=== PATIENT | female | born 1975 | race Caucasian/White ===

== ENCOUNTER 2016-07-30 02:56 | Emergency (ER) | payer MEDICARE ==
[2015-08-08 03:47] VITALS: BMI 58.3
[~2016-07-30 02:56] MED LIST: AMBIEN10 MG PO; CIPRO500 MG PO; CLEOCIN HCL300 MG PO; CYCLOBENZAPRINE10 MG PO; DAKIN'S 0.125%480 ML TP; DEMEROL50 MG PO; DILAUDID2 MG; DURAGESIC1 PATCH .1 TD; FLEXERIL10 MG PO; KEFLEX500 MG PO; NORCO 10/325 TA1 TA1 PO; NORCO 5/325 TAB1 TA1 PO; PERCOCET 10/3251 TA1 PO; PHENERGAN25 M1 PO; PROVENTIL HFA6.7 GM INH; SINGULAIR10 MG PO; STERAPRED DS 1010 MG PO; TOPAMAX50 MG PO; VIBRAMYCIN 100100 MG PO; WELLBUTRIN SR150 MG PO; ZOFRAN ODT4 MG/UDTAB PO; ZYVOX600 MG PO
[2016-09-15] MEDS ORDERED: AMBIEN CR12.5 MG/BO PO (10:28)
[2016-09-15] MEDS ORDERED: ZOFRAN ODT4 MG/UDTAB PO (10:29)
[2016-09-15] MEDS ORDERED: TRIAMTERENE-HCT1 TA1 PO (10:29)
[2016-09-15] MEDS ORDERED: ACETAMINOPHEN500 M1 PO (10:30)
== END 2016-07-30 05:18 | disposition home or self-care (01) ==
LOC: D.ER 02:56
DX: J20.9 Acute bronchitis, unspecified (principal); R51 Headache; I10 Essential (primary) hypertension; J45.909 Unspecified asthma, uncomplicated

== ENCOUNTER 2016-08-10 21:07 | Emergency (ER) | payer MEDICARE ==
[2015-08-08 03:47] VITALS: BMI 58.3
[2016-08-10 22:40] LABS: BASOPHILS 0.2 % (0.0-2.0); EOSINOPHILS 1.6 % (0-7); HEMATOCRIT 41.4 % (36.0-48.0); HEMOGLOBIN 13.5 g/dL (12-16); IMMATURE GRANULOCYTES 0.4 % (0-5); LYMPHOCYTES 28.2 % (15-50); MCH 27.2 pg (26.0-34.0); MCHC 32.6 g/dL (31.0-37.0); MCV 83.3 fL (80.0-100.0); MEAN PLATELET VOLUME 10.5 fL (7.4-10.4); MONOCYTES 6.4 % (2-11); NEUTROPHILS 63.2 % (40-80); RBC 4.97 10x6/uL (4.00-5.40); RDW 13.5 % (11.5-14.5); WBC 10.5 10x3/uL (4.8-10.8)
[2016-08-10 22:45] LABS: PLATELET COUNT 209 10x3/uL (130-400)
[2016-08-10 23:04] LABS: ALBUMIN 3.7 g/dL (3.4-5.0); ALKALINE PHOSPHATASE 103 U/L (46-116); ALT (SGPT) 29 U/L (10-68); BILIRUBIN - TOTAL 0.21 mg/dL (0.2-1.3); CALC OSMOLALITY 285 mosm/kg (275-300); CALCIUM 9.6 mg/dL (8.5-10.1); CHLORIDE - SERUM 103 mmol/L (98-107); CREATININE - SERUM 0.7 mg/dL (0.6-1.3); GLUCOSE 128 mg/dL (74-106); PROTEIN - SERUM 7.2 g/dL (6.4-8.2); SODIUM 141 mmol/L (136-145); UREA NITROGEN 22 mg/dL (7-18); eGFR NON AFRICAN AMERICAN > 90 mL/min (90-120)
[2016-09-15] MEDS ORDERED: AMBIEN CR12.5 MG/BO PO (10:28)
[2016-09-15] MEDS ORDERED: ZOFRAN ODT4 MG/UDTAB PO (10:29)
[2016-09-15] MEDS ORDERED: TRIAMTERENE-HCT1 TA1 PO (10:29)
[2016-09-15] MEDS ORDERED: ACETAMINOPHEN500 M1 PO (10:30)
== END 2016-08-11 01:42 | disposition home or self-care (01) ==
LOC: D.ER 21:07
PROVIDERS: Family Medicine
DX: L02.216 Cutaneous abscess of umbilicus (principal); I10 Essential (primary) hypertension; J45.909 Unspecified asthma, uncomplicated

== ENCOUNTER 2016-08-25 13:19 | Emergency (ER) | payer MEDICARE ==
[2015-08-08 03:47] VITALS: BMI 58.3
[2016-08-25 14:10] LABS: BASOPHILS 0.1 % (0.0-2.0); EOSINOPHILS 1.5 % (0-7); HEMATOCRIT 41.3 % (36.0-48.0); HEMOGLOBIN 13.7 g/dL (12-16); IMMATURE GRANULOCYTES 0.2 % (0-5); LYMPHOCYTES 16.6 % (15-50); MCH 27.3 pg (26.0-34.0); MCHC 33.2 g/dL (31.0-37.0); MCV 82.4 fL (80.0-100.0); MEAN PLATELET VOLUME 10.6 fL (7.4-10.4); MONOCYTES 6.7 % (2-11); NEUTROPHILS 74.9 % (40-80); PLATELET COUNT 199 10x3/uL (130-400); RBC 5.01 10x6/uL (4.00-5.40); RDW 13.7 % (11.5-14.5); WBC 9.9 10x3/uL (4.8-10.8)
[2016-08-25 14:34] LABS: ALBUMIN 3.9 g/dL (3.4-5.0); ANION GAP 12.3 mmol/L (8-16); BILIRUBIN - TOTAL 0.37 mg/dL (0.2-1.3); CALCIUM 9.6 mg/dL (8.5-10.1); CARBON DIOXIDE 27.8 mmol/L (21.0-32.0); CREATININE - SERUM 0.9 mg/dL (0.6-1.3); POTASSIUM - SERUM 4.1 mmol/L (3.5-5.1); PROTEIN - SERUM 7.3 g/dL (6.4-8.2)
[2016-09-15] MEDS ORDERED: AMBIEN CR12.5 MG/BO PO (10:28)
[2016-09-15] MEDS ORDERED: TRIAMTERENE-HCT1 TA1 PO (10:29)
[2016-09-15] MEDS ORDERED: ZOFRAN ODT4 MG/UDTAB PO (10:29)
[2016-09-15] MEDS ORDERED: ACETAMINOPHEN500 M1 PO (10:30)
== END 2016-08-25 16:15 | disposition home or self-care (01) ==
LOC: D.ER 13:19
PROVIDERS: Emergency Medicine
DX: G89.18 Other acute postprocedural pain (principal)

== ENCOUNTER 2016-08-30 14:20 | Emergency (ER) | payer MEDICARE ==
[2015-08-08 03:47] VITALS: BMI 58.3
[2016-08-30 16:32] LABS: BASOPHILS 0.3 % (0.0-2.0); EOSINOPHILS 2.6 % (0-7); HEMATOCRIT 39.6 % (36.0-48.0); IMMATURE GRANULOCYTES 0.4 % (0-5); LYMPHOCYTES 24.3 % (15-50); MCH 27.1 pg (26.0-34.0); MCHC 32.8 g/dL (31.0-37.0); MCV 82.5 fL (80.0-100.0); MEAN PLATELET VOLUME 11.4 fL (7.4-10.4); MONOCYTES 8.6 % (2-11); NEUTROPHILS 63.8 % (40-80); PLATELET COUNT 133 10x3/uL (130-400); RDW 13.3 % (11.5-14.5); WBC 7.4 10x3/uL (4.8-10.8)
[2016-08-30 16:44] LABS: ALBUMIN 3.5 g/dL (3.4-5.0); ALKALINE PHOSPHATASE 102 U/L (46-116); ALT (SGPT) 27 U/L (10-68); CALC OSMOLALITY 284 mosm/kg (275-300); CALCIUM 9.3 mg/dL (8.5-10.1); CARBON DIOXIDE 30.4 mmol/L (21.0-32.0); CHLORIDE - SERUM 104 mmol/L (98-107); CREATININE - SERUM 0.8 mg/dL (0.6-1.3); GLUCOSE 129 mg/dL (74-106); POTASSIUM - SERUM 4.1 mmol/L (3.5-5.1); PROTEIN - SERUM 6.6 g/dL (6.4-8.2); SODIUM 142 mmol/L (136-145); UREA NITROGEN 13 mg/dL (7-18); eGFR NON AFRICAN AMERICAN 83 mL/min (90-120)
[2016-09-15] MEDS ORDERED: AMBIEN CR12.5 MG/BO PO (10:28)
[2016-09-15] MEDS ORDERED: TRIAMTERENE-HCT1 TA1 PO (10:29)
[2016-09-15] MEDS ORDERED: ZOFRAN ODT4 MG/UDTAB PO (10:29)
[2016-09-15] MEDS ORDERED: ACETAMINOPHEN500 M1 PO (10:30)
[2016-10-22] MEDS ORDERED: MEPERIDINE HCL50 MG PO (15:21)
== END 2016-08-30 19:00 | disposition home or self-care (01) ==
LOC: D.ER 14:20
PROVIDERS: Family Medicine
DX: L03.311 Cellulitis of abdominal wall (principal); I10 Essential (primary) hypertension; J45.909 Unspecified asthma, uncomplicated

== ENCOUNTER 2016-09-09 21:49 | Emergency (ER) | payer MEDICARE ==
[2015-08-08 03:47] VITALS: BMI 58.3
[2016-09-15] MEDS ORDERED: AMBIEN CR12.5 MG/BO PO (10:28)
[2016-09-15] MEDS ORDERED: TRIAMTERENE-HCT1 TA1 PO (10:29)
[2016-09-15] MEDS ORDERED: ZOFRAN ODT4 MG/UDTAB PO (10:29)
[2016-09-15] MEDS ORDERED: ACETAMINOPHEN500 M1 PO (10:30)
[2016-10-22] MEDS ORDERED: MEPERIDINE HCL50 MG PO (15:21)
== END 2016-09-10 00:38 | disposition home or self-care (01) ==
LOC: D.ER 21:49
DX: T81.4XXD Infection following a procedure, subsequent encounter (principal); B99.8 Other infectious disease; I10 Essential (primary) hypertension; J45.909 Unspecified asthma, uncomplicated

== ENCOUNTER 2016-09-16 07:28 | Day surgery (SDC) | payer MEDICARE ==
[~2016-09-16] VITALS: Ht 165.1 cm; Wt 158.8 kg
[~2016-09-16 07:28] MED LIST changes: +ACETAMINOPHEN500 M1 PO; +AMBIEN CR12.5 MG/BO PO; +TRIAMTERENE-HCT1 TA1 PO
--- NOTE | 2016-09-16 09:40 | NUR ---
BP 205/105, PULSE 73, NOTIFIED JYOTI BLACK MANAGER LOAN
[2016-09-16 10:01] VITALS: BP 203/100; Ht 165.1 cm; Wt 158.8 kg
[2016-09-16 10:56] LABS: BASOPHILS 0.2 % (0.0-2.0); EOSINOPHILS 2.6 % (0-7); HEMOGLOBIN 12.5 g/dL (12-16); IMMATURE GRANULOCYTES 0.2 % (0-5); LYMPHOCYTES 25.8 % (15-50); MCH 26.8 pg (26.0-34.0); MCHC 32.1 g/dL (31.0-37.0); MCV 83.5 fL (80.0-100.0); MEAN PLATELET VOLUME 11.2 fL (7.4-10.4); NEUTROPHILS 62.2 % (40-80); PLATELET COUNT 195 10x3/uL (130-400); RBC 4.67 10x6/uL (4.00-5.40); RDW 13.2 % (11.5-14.5); WBC 6.6 10x3/uL (4.8-10.8)
[2016-09-16 11:04] LABS: APTT 28.3 SECONDS (22.8-39.4); PROTIME 13.1 SECONDS (11.6-15.0)
--- NOTE | 2016-09-16 14:53 | NUR ---
1450 PT STATES SHE IS READY TO GO HOME. IV DC'D WITH CATH INTACT.
--- NOTE | 2016-09-19 09:40 | OP ---
PATIENT NAME: AYAKA HEDRICK MEDICAL RECORD: [id number] :73 LOCATION:D.OPS ADMISSION DATE: SURGEON: SADIQ GOODSON MD DATE OF OPERATION: 09/16/2016 PREOPERATIVE DIAGNOSIS: Ulcerated area with drainage, recurrent, in the suprapubic area beneath the patient's panniculus with tracking and tunneling to the right. POSTOPERATIVE DIAGNOSES: Ulcerated area with drainage, recurrent, in the suprapubic area beneath the patient's panniculus with tracking and tunneling to the right, and reducible umbilical hernia. PROCEDURE: Wide excisional debridement of abdominal wall. The dimensions of debridement, including margins, measured 27.5 cm in the medial lateral dimension and 15.5 cm in the cephalad caudad dimension. It included the ulcer. It included the infected tract. It included the surrounding subcutaneous tissue as well as overlying skin. It included the fascia. Also, 4 pieces of monofilament sutures were noted and were removed. The debridement included some of the anterior wall fascia. This was an intermediate closure. Umbilical hernia repair without mesh. SURGEON: Sadiq Goodson MD. SENIOR SUPPORT ENGINEER: None. BLOOD LOSS: 150 cc. ANESTHESIA: General. COMPLICATIONS: None. The risks, possible complications and alternatives to procedure were explained to the patient. She elects to proceed. OPERATIVE COURSE: The patient was conveyed to the operating room electively on 09/16/2016. General anesthesia was induced by the anesthesia staff. The abdomen was sterilely prepped and draped. This was performed in a piecemeal fashion. Through the use of double curvilinear incisions, I began to perform an excision. I ran into additional indurated tissue laterally to the right. I extended my excision to the right. I excised the skin and subcutaneous tissue as well as underlying ulcer in a piecemeal fashion with the scalpel as well as with electrocautery. I encountered an umbilical hernia. It was reducible. As this is technically an infected field, I reduced the incarcerated contents, which appeared to be colon. I then closed the hernia defect with multiple interrupted horizontal mattress #1 Vicryls. Subcutaneous flaps were created sharply. Cultures of the infected ulcer were obtained. I irrigated in the wound with hydrogen peroxide. The subdermis was approximated with interrupted 3-0 Vicryls. The skin was approximated with multiple interrupted vertical mattress and #1 Vicryls. A sterile dressing was applied. The patient was then extubated and conveyed to the post-anesthesia care unit where she was in stable condition. She will be dismissed home on for pain as well as doxycycline. She will be seen in my office on Thursday for dressing OPERATIVE REPORT [id number] AYAKA HEDRICK. TRANSINT:[id number] Voice Confirmation ID: [id number] DOCUMENT ID: [id number] SADIQ GOODSON MD at 0940 CC: FALLON NESBITT MD [id number] DICTATION DATE: 09/16/16 1410 FIELD ASSISTANT: 09/16/168 [facility] 09/16/16 [place] [place] [place] [address]
--- NOTE | 2016-09-19 09:40 | HP ---
PATIENT: AYAKA HEDRICK MEDICAL RECORD: [id number] ACCOUNT: [id number] LOCATION:TRES : 73 ADMISSION DATE: 09/16/16 HISTORY AND PHYSICAL EXAMINATION CHIEF COMPLAINT: Drainage. HISTORY OF PRESENT ILLNESS: The patient has an ulcerated area in the suprapubic area underneath her panniculus and there is some induration and tracking to the right. She has had a history of multiple debridements of the abdominal wall. We have always searched for some underlying foreign body that could be nidus for these infections and I really have never found anything significant to account for these infections. Anyhow, she has had another infection and for that reason she is going to undergo another debridement. It is going to be wide debridement. The risks, possible complications and alternatives to procedure were explained to the patient. She elects to proceed. The discussion specifically included, but was not limited to, bleeding requiring emergency reoperation, infection, possible need for additional debridements, possible need for wound VAC and possible need for revisionary procedure and the possibility of wound dehiscence. SOCIAL HISTORY: Former smoker, quit in 1996. PAST MEDICAL AND SURGICAL HISTORY: Gastroesophageal reflux, which is controlled with opaa-hpy-psdwbpy therapy, hypertension, history of adenocarcinoma of the endometrium, tonsillectomy and adenoidectomy, hysterectomy, , history of colon resection, history of abdominal hernia repair with mesh and morbid obesity. HOME MEDICATIONS: Albuterol, Flexeril, Maxzide, Zofran, and Ambien. ALLERGIES: ARE NUMEROUS AND INCLUDE PENICILLIN, SULFA, NSAIDS, ASPIRIN, CEPHALOSPORINS, ADHESIVES, FOLIC ACID, COMPAZINE WELL VITAMIN E. REVIEW OF SYSTEMS: No nausea. No vomiting. No fever. No chills. Review of systems is negative other than as is described above. PHYSICAL EXAMINATION: GENERAL: The patient does not appear acutely ill. She does appear chronically ill. VITAL SIGNS: Reviewed. HEAD: External ears appear normal. EYES: Extraocular movements are intact. NECK: Trachea is midline. CHEST: No intercostal retractions. PULMONARY: Nonlabored. No stridor. ABDOMEN: Tenderness in the suprapubic area and in the right lower quadrant. IMPRESSION: Ulceration with infection in the suprapubic area tracking on to the right. There is ulceration in the area. PLAN: Wide excisional debridement. TRANSINT:[id number] Voice Confirmation ID: [id number] DOCUMENT ID: [id number] HISTORY AND PHYSICAL [id number] AYAKA HEDRICK ROBERT MD at 0940 CC: DICK HUDDLESTON MD [id number] DICTATION DATE: 09/16/16 1242 FIRE DISPATCHER: 09/16/16 1413 [facility] 09/16/16 [place] [id number]
== END 2016-09-16 15:20 | disposition home or self-care (01) ==
LOC: D.OPS 07:28 → D.PAN 09:30 → D.OPS 09:30
PROVIDERS: Anesthesiology
DX: L98.491 Non-pressure chronic ulcer of skin of other sites limited to breakdown of skin (principal); K42.0 Umbilical hernia with obstruction, without gangrene; M60.28 Foreign body granuloma of soft tissue, not elsewhere classified, other site; Z18.89 Other specified retained foreign body fragments; K21.9 Gastro-esophageal reflux disease without esophagitis; I10 Essential (primary) hypertension; E66.01 Morbid (severe) obesity due to excess calories; Z87.891 Personal history of nicotine dependence; Z79.899 Other long term (current) drug therapy; Z88.0 Allergy status to penicillin; Z88.6 Allergy status to analgesic agent; Z88.2 Allergy status to sulfonamides; Z88.8 Allergy status to other drugs, medicaments and biological substances; Z68.43 Body mass index [BMI] 50.0-59.9, adult

== ENCOUNTER 2016-09-16 18:59 | Inpatient (IN) | payer MEDICARE ==
[~2016-09-16] VITALS: Ht 165.1 cm; Wt 172.4 kg
--- NOTE | ~2016-09-16 | DS ---
PATIENT:AYAKA HEDRICK :73 MEDICAL RECORD: [id number] DISCHARGE SUMMARY ADMISSION DATE: 09/16/16 DISCHARGE DATE: DATE OF SERVICE: 09/19/2016 PRINCIPAL DIAGNOSES: 1. Postoperative subcutaneous hematoma. 2. Acute blood loss anemia requiring transfusion. 3. Urinary tract infection with vancomycin-resistant enterococci. 4. Syncope. HOSPITAL COURSE: The patient was admitted through the Emergency Room with a subcutaneous hematoma, which was a postoperative hematoma. She initially admitted to the intensive care unit. The patient had a syncopal episode without injury. She was taken to the operating room. The hematoma was removed. The subcutaneous tissues were lavaged. I then packed the wound. She was brought back to the operating room. Unpacked lavage and closed. The patient while in the hospital, had a urinary tract infection with VRE, which is sensitive to linezolid, which she will be dismissed home on. She also had wound culture for MRSA. She will be dismissed home on doxycycline. Also, hydrocodone for pain. She will come to the office next for drain removal. TRANSINT:[id number] Voice Confirmation ID: [id number] DOCUMENT ID: [id number] KRIS GOODSON MD CC: [id number] DICTATION DATE: 09/19/16 160 VENEER GLUER: 09/19/162230 ADM IN [place] [id number] [place] [address]
--- NOTE | ~2016-09-16 | OP ---
PATIENT NAME: AYAKA HEDRICK MEDICAL RECORD: [id number] :73 LOCATION:D.MS Agustin2229 ADMISSION DATE:09/16/16 SURGEON: SAIDQ GOODSON MD DATE OF OPERATION: 09/19/2016 PREOPERATIVE DIAGNOSIS: Subcutaneous packing due to postoperative hematoma. POSTOPERATIVE DIAGNOSIS: Subcutaneous packing due to postoperative hematoma with no evidence for recurrent bleeding. PROCEDURES: Packing of the wound. Lavage of the subcutaneous wound. Placement of drain. Closure of the wound. SURGEON: Sadiq Goodson MD. STEVEDORE DOCK: None. BLOOD LOSS: Minimal. ANESTHESIA: General. COMPLICATIONS: None. The risks, possible complications and alternatives to procedure were explained to the patient. She elects to proceed. OPERATIVE COURSE: The patient was conveyed to the operating room electively on 09/19/2016. General anesthesia was induced by anesthesia staff. The abdomen was sterilely prepped and draped. All the laparotomy pads were removed from the subcutaneous tissue. This was a total of 5 packs. I then lavaged the subcutaneous wound with a pulse fermentation scientist or evacuator. I then lavaged with hydrogen peroxide. A 19-Irish Ector drain was placed and brought out laterally. The drain was placed in the subcutaneous tissues. The subdermis was approximated with interrupted 3-0 Vicryls. The open portion of the skin was closed with interrupted horizontal mattress #1 Vicryls. TRANSINT:[id number] Voice Confirmation ID: [id number] DOCUMENT ID: [id number] SADIQ GOODSON MD CC: [id number] DICTATION DATE: 09/19/16 1603 RESTAURANT SERVICE MANAGER: 09/19/16 191 ADM IN [facility] [address] [place] [address]
[2016-09-16 20:51] LABS: INR 1.18 (0.85-1.17); PROTIME 14.9 SECONDS (11.6-15.0)
[2016-09-16 21:01] LABS: APTT 77.1 SECONDS (22.8-39.4)
[2016-09-17] VITALS (20 sets, daily range): BP systolic 101–144; BP diastolic 54–98; Ht 165.1 cm; Wt 172.4 kg
--- NOTE | 2016-09-17 00:30 | NUR ---
PT ADMITTED TO ROOM 2312. RECEIVED FROM ER VIA BED ACCOMPANIED BY STAFF. PT ABLE TO POSITION SELF TO ICU BED. ABD PADS APPLIED TO ARE ON RIGHT LOWER ABD THAT IS BLEEDING. ABD BINDER RESECURED AND AREA MARKED TO MONITOR ANOUNT OF BLEEDING. PT CONNECTED TO STANDARD ICU MONITORS AND ALL ALARMS SET. PT ORIENTATED TO ROOM SECURITY CODE ESTABLISHED. ORDERS REVIEWED. 24G PIV TO LEFT HAND STARTED AFTER 3 ATTEMPT IN ORDER TO ESTABLISH YARN CLEANER FOR PAIN MANAGEMENT. ADMISSION HISTORY AND ASSESSMENT COMPLETED. UNABLE TO ASSESS INCISION SITE DUE TO ABD BINDER AND BLEEDING
[2016-09-17 00:39] LABS: BASOPHILS 0 % (0.0-2.0); EOSINOPHILS 0 % (0-7); HEMATOCRIT 33.2 % (36.0-48.0); HEMOGLOBIN 10.9 g/dL (12-16); IMMATURE GRANULOCYTES 0.3 % (0-5); LYMPHOCYTES 5.6 % (15-50); MCHC 32.8 g/dL (31.0-37.0); MCV 82.4 fL (80.0-100.0); MEAN PLATELET VOLUME 10.7 fL (7.4-10.4); MONOCYTES 3.8 % (2-11); NEUTROPHILS 90.3 % (40-80); RBC 4.03 10x6/uL (4.00-5.40); RDW 13.3 % (11.5-14.5)
[2016-09-17 00:40] LABS: PLATELET COUNT 277 10x3/uL (130-400); WBC 15.6 10x3/uL (4.8-10.8)
[2016-09-17 00:46] LABS: ALBUMIN 3.2 g/dL (3.4-5.0); ANION GAP 11.5 mmol/L (8-16); BILIRUBIN - TOTAL 0.6 mg/dL (0.2-1.3); CALCIUM 8.7 mg/dL (8.5-10.1); CARBON DIOXIDE 28.7 mmol/L (21.0-32.0); POTASSIUM - SERUM 4.2 mmol/L (3.5-5.1); PROTEIN - SERUM 6.5 g/dL (6.4-8.2)
--- NOTE | 2016-09-17 03:00 | NUR ---
SHIFT REASSESSMENT COMPLETED NO SIGNIFICANT CHANGE. LAB VALUES DO NOT INDICATE NEED FOR TRANSFUSION. VSS. PT REMAINS AAOX4 PLAYING GAMES ON HER PHONE. ENCOURAGED TO REST. HAS BEEN HELD NPO FOR POTENTIAL PROCEDURE.
--- NOTE | 2016-09-17 05:00 | NUR ---
I&O COMPLETED. PT REMAINS AWAKE. NO SIGNIFICANT BLEEDING BEYOND THE EMERY MADE AT 0100.
--- NOTE | 2016-09-17 07:00 | NUR ---
REPORT RECEIVED. ASSESSMENT COMPLETED. LILIANA LEFT PLAYING ON HER CELL PHONE. NO NEEDS VOICED AT THIS TIME.
[2016-09-17 08:06] LABS: BASOPHILS 0.1 % (0.0-2.0); EOSINOPHILS 0 % (0-7); HEMATOCRIT 29.9 % (36.0-48.0); HEMOGLOBIN 9.5 g/dL (12-16); IMMATURE GRANULOCYTES 0.3 % (0-5); LYMPHOCYTES 9.3 % (15-50); MCH 26.5 pg (26.0-34.0); MCHC 31.8 g/dL (31.0-37.0); MCV 83.5 fL (80.0-100.0); MEAN PLATELET VOLUME 10.1 fL (7.4-10.4); MONOCYTES 7.1 % (2-11); NEUTROPHILS 83.2 % (40-80); PLATELET COUNT 259 10x3/uL (130-400); RBC 3.58 10x6/uL (4.00-5.40); RDW 13.5 % (11.5-14.5); WBC 15.6 10x3/uL (4.8-10.8)
[2016-09-17 08:27] LABS: ANION GAP 10.9 mmol/L (8-16); CALCIUM 8.9 mg/dL (8.5-10.1); CARBON DIOXIDE 28.6 mmol/L (21.0-32.0); POTASSIUM - SERUM 4.5 mmol/L (3.5-5.1)
--- NOTE | 2016-09-17 08:44 | NUR ---
DR GOODSON PAGED SECONDARY TO PATIENT C/O DILAUDID MAKING HER ITCH AND SHE IS REQUESTING DEMEROL. SPOKE WITH HIM AND NEW ORDERS RECEIVED.
--- NOTE | 2016-09-17 09:41 | NUR ---
16 FR DICK WITH 10 CC BULB PLACED USING SERILE TECHNIQUE. RECEIVED 700 ML OF DARK YELLOW URINE. PATIENT TOLERATED WELL. CHLORAHEXADINE BATH GIVEN AND LINENS CHANGED.
--- NOTE | 2016-09-17 12:58 | NUR ---
PATIENT GOING TO SURGERY.
--- NOTE | 2016-09-17 13:41 | NUR ---
ALL COUNTS CORRECT. 5 LAPS LEFT IN ABDOMEN FOR PACKING PER DR. GOODSON.
--- NOTE | 2016-09-17 14:56 | NUR ---
REPORT RECEIVED FROM SAMMY DEAL IN RECOVERY. PATIENT WILL BE BACK SHORTLY.
--- NOTE | 2016-09-17 15:08 | NUR ---
PATIENT WAS SETTLED INTO HER ROOM. SHE DID NOT GET HOOKED BACK UP TO HER MEDICAL OR SURGICAL INSTRUMENT MAKER AT THIS TIME BECAUSE IT WAS MORE IMPORTANT FOR HER TO HAVE HER FAMILY IN THE ROOM THAN IT WAS FOR THE NURSE TO TAKE CARE OF HER. THIS NURSE WAS NOT GOING TO ARGUE WITH THE PATIENT.
--- NOTE | 2016-09-17 15:56 | NUR ---
PATIENT WAS IN THE OR TODAY AND I WAS NOT ABLE TO INTERVIEW HER FOR DISCHARGE PLANNING. I HAVE NOT SEEN ANY FAMILY AT THIS TIME. CM TO FOLLOW.
--- NOTE | 2016-09-17 16:38 | NUR ---
REPORT CALLED TO SAMMY GREY ON MED/SURG. PATIENT WILL TRANSFER TO ROOM 2229. WILL TAKE HER VIA BED.
--- NOTE | 2016-09-17 18:21 | NUR ---
PT ARRIVED VIA BED FROM ICU, PT AOX4 RESP EVEN AND NONLABORED IV TO RIGHT EJ PATENT AND INTACT. BED AT LOWEST SETTING CALL LIGHT WITHIN REACH WILL CONTINUE TO MONITOR
--- NOTE | 2016-09-17 19:00 | NUR ---
PATIENT IN BED WATCHING TV. AAOX4. RR EVEN AND UNLABORED. 0 S/S OF DISTRESS. STATES PAIN IS A 9/10. RIGHT IJ PATENT WITH NO REDNESS OR SWELLING. INCISION TO ABDOMEN CLOSED WITH SUTURES AND WELL APPROXIMATED. DICK SECURED WITH STATLOCK AND DRAINING TO GRAVITY. SRX2. BED LOW. CALL LIGHT WITHIN REACH.
--- NOTE | 2016-09-17 22:00 | NUR ---
ASSESSMENT COMPLETE. NIGHTTIME MEDS GIVEN. AMBIEN AND FLEXERIL GIVEN PER TELEPHONE ORDER BY DR. GOODSON. BOLUS VETERINARY TECHNOLOGIST DOSE GIVEN PER ORDER. PUT ABD BINDER ON PATIENT. PATIENT AMBULATED TO BATHROOM AND BACK TO BED WITHOUT ISSUE. REMOVED IV TO LEFT HAND WITH CATHETER TIP INTACT. NO OTHER NEEDS AT THIS TIME.
[2016-09-18] VITALS (21 sets, daily range): BP systolic 105–152; BP diastolic 47–85
--- NOTE | 2016-09-18 03:58 | NUR ---
PATIENT SLEEPING WITH NO DISTRESS NOTED. CALL LIGHT WITHIN REACH.
[2016-09-18 06:36] LABS: ALBUMIN 2.9 g/dL (3.4-5.0); ALKALINE PHOSPHATASE 62 U/L (46-116); BILIRUBIN - TOTAL 0.37 mg/dL (0.2-1.3); CALCIUM 8.2 mg/dL (8.5-10.1); CARBON DIOXIDE 28.1 mmol/L (21.0-32.0); CHLORIDE - SERUM 105 mmol/L (98-107); MAGNESIUM - SERUM 1.9 mg/dL (1.8-2.4); PHOSPHOROUS 2.5 mg/dL (2.5-4.9); POTASSIUM - SERUM 3.9 mmol/L (3.5-5.1); PROTEIN - SERUM 5.5 g/dL (6.4-8.2); SODIUM 140 mmol/L (136-145); UREA NITROGEN 17 mg/dL (7-18)
[2016-09-18 06:37] LABS: ALT (SGPT) 14 U/L (10-68); CALC OSMOLALITY 281 mosm/kg (275-300); CREATININE - SERUM 0.7 mg/dL (0.6-1.3); GLUCOSE 116 mg/dL (74-106); eGFR NON AFRICAN AMERICAN > 90 mL/min (90-120)
[2016-09-18 07:21] LABS: BASOPHILS 0.1 % (0.0-2.0); EOSINOPHILS 0.2 % (0-7); HEMOGLOBIN 7.6 g/dL (12-16); IMMATURE GRANULOCYTES 0.4 % (0-5); LYMPHOCYTES 18.6 % (15-50); MCH 27.3 pg (26.0-34.0); MCHC 32.1 g/dL (31.0-37.0); MCV 85.3 fL (80.0-100.0); MEAN PLATELET VOLUME 10.6 fL (7.4-10.4); MONOCYTES 11.1 % (2-11); NEUTROPHILS 69.6 % (40-80); RDW 14.1 % (11.5-14.5)
[2016-09-18 07:24] LABS: HEMATOCRIT 23.7 % (36.0-48.0); PLATELET COUNT 167 10x3/uL (130-400); RBC 2.78 10x6/uL (4.00-5.40); WBC 11.3 10x3/uL (4.8-10.8)
--- NOTE | 2016-09-18 09:10 | NUR ---
Patient Name: AYAKA HEDRICK Admission Status: ER Accout number: [id number] Admission Date: 09-16-2016 : 1975 Admission Diagnosis: Attending: OSCAR Current LOS: 2 Anticipated DC Date: 09-22-2016 Planned Disposition: Home with Home Health Primary Insurance: [employer] [facility] Discharge Planning Comments: CM MET WITH PATIENT REGARDING D/C NEEDS AND PLANS. PATIENT STATED SHE LIVES WITH HER MOTHER, DAUGHTER, AND AN EXCHANGE STUDENT. PATIENTS FRIEND (RADAMES POZO) WILL DRIVE HER HOME WHEN DISCHARGED. PATIENT STATED SHE IS INDEPENDENT WITH HER CARE AND HAS A WALKER AT HOME IF NEEDED. PAIENTS PCP IS DR. NESBITT AND PHARMACY IS [facility]. PATIENT HAS NEVER HAD HOME HEALTH BUT HAS SIGNED THE MARGOT FORM WITH [facility]. CM WILL CONTINUE TO FOLLOW PATIENT WITH D/C NEEDS AND PLANS. PCP DR. DELICIA HADLEY ON [address] [facility]- [phone] RADAMES POZO (FRIEND) [phone] Manager Utilization Management: Rachael York Is the patient Alert and Oriented? Yes 0 * How many steps to enter\exit or inside your home? 2 W/O RAIL 0 * PCP DR. NESBITT 0 * Pharmacy [facility] [address] [facility] 0 * Preadmission Environment Home with Family 0 * ADLs Independent 0 * Equipment Walker 0 * List name and contact numbers for known caregivers / representatives who currently or will assist patient after discharge: RADAMES POZO (FRIEND) [phone] 0 * Community resources currently utilized None 0 * Additional services required to return to the preadmission environment? Yes 0 * Can the patient safely return to the preadmission environment? Yes 0 * Has this patient been hospitalized within the prior 30 days at any hospital? No 0 Grand Total: 0
--- NOTE | 2016-09-18 11:43 | NUR ---
PATIENT IS RECIEVING FIRST UNIT OF PRBC STAYING WITH PATIENT FOR THE FIRST 15 MINS OF TRANSFUSION. PATIENT IS TOLERATING AT THIS TIME. NO SIGNS OF DISTRESS NOTED. EXPLAINED TO PATIENT THE RISK FOR REACTION TO BLOOD AND POSSIBLE SYMPTOMS TO REPORT IMMEDIATELY. PATIENT VERBALIZED UNDERSTANDING.
--- NOTE | 2016-09-18 13:36 | NUR ---
CM REASSESSMENT NOTE: PATIENT CHOSE [facility] AND SIGNED THE MARGOT FORM AND REFERRAL HAS BEEN SENT. ON D/C SEND ORDER AND D/C INFORMATION
--- NOTE | 2016-09-18 19:00 | NUR ---
PATIENT IN BED WATCHING TV. HOB 30 DEGREES. AAOX4. RR EVEN AND UNLABORED. 0 S/S OF DISTRESS. STATES PAIN IS A 7/10. RIGHT IJ PATENT WITH NO REDNESS OR SWELLING. ABD BINDER TO ABD. PRBC COMPLETE. VITALS WNL.
--- NOTE | 2016-09-18 21:30 | NUR ---
ASSESSMENT COMPLETE. NIGHTTIME MEDS GIVEN. AMBIEN GIVEN FOR SLEEP. DEMEROL BOLUS GIVEN. REINFORCED DRESSING TO ABD.
[2016-09-19] VITALS (10 sets, daily range): BP systolic 124–183; BP diastolic 62–89
--- NOTE | 2016-09-19 00:40 | NUR ---
DEMEROL BOLUS GIVEN. PATIENT RESTING WITH NO DISTRESS NOTED.
[2016-09-19 01:00] LABS: BASOPHILS 0.1 % (0.0-2.0); EOSINOPHILS 0.9 % (0-7); HEMATOCRIT 27.4 % (36.0-48.0); HEMOGLOBIN 8.6 g/dL (12-16); IMMATURE GRANULOCYTES 0.4 % (0-5); LYMPHOCYTES 20.8 % (15-50); MCHC 31.4 g/dL (31.0-37.0); MCV 85.9 fL (80.0-100.0); MEAN PLATELET VOLUME 10.4 fL (7.4-10.4); MONOCYTES 12.1 % (2-11); NEUTROPHILS 65.7 % (40-80); PLATELET COUNT 151 10x3/uL (130-400); RBC 3.19 10x6/uL (4.00-5.40); RDW 13.9 % (11.5-14.5)
--- NOTE | 2016-09-19 06:45 | NUR ---
DEMEROL BOLUS GIVEN. HIBICLENS GIVEN. DRESSING TO ABD REINFORCED AGAIN.
[2016-09-19 09:10] LABS: BASOPHILS 0.1 % (0.0-2.0); EOSINOPHILS 1.5 % (0-7); HEMOGLOBIN 8.5 g/dL (12-16); IMMATURE GRANULOCYTES 0.3 % (0-5); LYMPHOCYTES 20.6 % (15-50); MCH 27.2 pg (26.0-34.0); MCHC 31.5 g/dL (31.0-37.0); MCV 86.5 fL (80.0-100.0); MEAN PLATELET VOLUME 10.7 fL (7.4-10.4); MONOCYTES 13.1 % (2-11); NEUTROPHILS 64.4 % (40-80); PLATELET COUNT 149 10x3/uL (130-400); RBC 3.12 10x6/uL (4.00-5.40); WBC 10.8 10x3/uL (4.8-10.8)
--- NOTE | 2016-09-19 09:40 | HP ---
PATIENT: AYAKA HEDRICK MEDICAL RECORD: [id number] ACCOUNT: [id number] LOCATION:D.MS Agustin2229 : 73 ADMISSION DATE: 09/16/16 HISTORY AND PHYSICAL EXAMINATION CHIEF COMPLAINT: Bleeding. HISTORY OF PRESENT ILLNESS: The patient underwent a wide excision of an abdominal wall ulcerated wound with tracking yesterday. She developed a subcutaneous postoperative hematoma last night. She contacted me by phone. We tried to treat this conservatively at home, but she continued to have some oozing, presented to the Emergency Room and was admitted. Out on the floor, an abdominal binder was being applied. She was standing at that time. She had a syncopal episode without injury. Today, I am going to plan to take her to the operating room and evacuate the hematoma and pack the wound. I will leave packing in for a day or 2 and then bring her back. I will wash her out again and then close the wound. I have personally reviewed the CT images. I personally reviewed the CT report. She has a hematoma that is 28.2 x 10 x 13 cm. It is consistent with a hematoma. I spoke to the nurses last night regarding her condition. She has had some itching with Dilaudid this morning. We are going to switch her over to Demerol HUB BORER. The bleeding started several hours prior to presentation to the Emergency Room. Symptoms were of moderate intensity. She describes the symptoms as cutting and tearing and a burning. Palpation aggravates. Nothing alleviates. Change of position also aggravates. REVIEW OF SYSTEMS: No fever. Positive for generalized weakness. No weight loss. No nasal congestion. No blurry vision. No congestion. Some nausea and some abdominal pain. No vomiting. No diarrhea. Positive for back pain. Positive for anxiety. PAST MEDICAL AND SURGICAL HISTORY: Ventral hernia repair with mesh, multiple excisional abdominal debridements and with placement of a wound VAC. We have never really been able to identify a nidus of these ongoing infections, history of bronchitis, history of hypertension, cellulitis, headaches, left ureterolithiasis, urinary tract infections, poor wound healing, MRSA, history of hysterectomy, history of bilateral salpingo-oophorectomies. SOCIAL HISTORY: Does not drink, does not smoke. HOME MEDICINES: Ambien, cyclobenzaprine, Maxzide, Tylenol, Zofran, Dilaudid and doxycycline. ALLERGIES: SULFA, COMPAZINE, PENICILLIN AND NSAIDs WELL RU-TUSS. PHYSICAL EXAMINATION: GENERAL: The patient does not appear acutely ill. She does appear chronically ill. VITAL SIGNS: Reviewed. The entire physical examination was performed with the presence of a female nurse. HEAD: External ears appear normal. EYES: Extraocular movements are intact. HISTORY AND PHYSICAL [id number] AYAKA HEDRICK NECK: Trachea is midline. CHEST: No intercostal retractions. PULMONARY: Nonlabored, no stridor. ABDOMEN: Tenderness in the lower abdomen with bleeding from the transverse incision, which is quite lengthy. EXTREMITIES: No peripheral cyanosis. INTEGUMENT: There is an intertriginous rash. PSYCHIATRIC: Anxious affect. NEUROLOGIC: Nonfocal, no lethargy. The patient answers questions appropriately, moves all extremities well. BACK: No thoracic kyphosis. LYMPHATICS: No lymphangitic streaking of the exposed extremities. IMPRESSION: 1. Acute blood loss anemia, symptomatic. 2. Syncope. 3. Postoperative subcutaneous hematoma. PLAN: Irrigation and evacuation of hematoma with packing of the wound. I will leave packing in for a couple of days, I will remove it and then perform a definitive closure of the wound. TRANSINT:[id number] Voice Confirmation ID: [id number] DOCUMENT ID: [id number] KRIS GOODSON MD at 0940 CC: [id number] DICTATION DATE: 09/17/16921 HAT MAKER: 09/17/16 1124 ADM IN [facility] [address] [place] [address]
--- NOTE | 2016-09-19 09:40 | OP ---
PATIENT NAME: AYAKA HEDRICK MEDICAL RECORD: [id number] :73 LOCATION:D.MS Agustin2229 ADMISSION DATE:09/16/16 SURGEON: KRIS GOODSON MD DATE OF OPERATION: 09/17/2016 PREOPERATIVE DIAGNOSES: 1. Postoperative subcutaneous hematoma. 2. Acute blood loss anemia. 3. Syncope. POSTOPERATIVE DIAGNOSES: 1. Postoperative subcutaneous hematoma. 2. Acute blood loss anemia. 3. Syncope. PROCEDURE: Exploration of subcutaneous wound, evacuation of hematoma, lavage and packing with 5 laparotomy pads. OPERATIVE COURSE: The patient was conveyed to the operating room. Several sutures around the abdomen was sterilely prepped and draped. Several sutures were cut. The hematoma was evacuated in its entirety. I irrigated with the pulse suction thread puller. I then irrigated with hydrogen peroxide. I then packed with 5 lapar[address] pads and then place Ioban over the abdomen. The patient was then extubated and conveyed to post-anesthesia care unit where she was going to have a central venous line placed. TRANSINT:[id number] Voice Confirmation ID: [id number] DOCUMENT ID: [id number] KRIS GOODSON MD at 0940 CC: [id number] DICTATION DATE: 09/17/16 1353 AUTOMATIC SPLICING MACHINE OPERATOR: 09/17/162058 ADM IN [place] [id number]
[2016-09-19 09:50] LABS: CALC OSMOLALITY 277 mosm/kg (275-300); CALCIUM 8.1 mg/dL (8.5-10.1); CARBON DIOXIDE 28.6 mmol/L (21.0-32.0); CHLORIDE - SERUM 104 mmol/L (98-107); CREATININE - SERUM 0.7 mg/dL (0.6-1.3); GLUCOSE 112 mg/dL (74-106); POTASSIUM - SERUM 3.5 mmol/L (3.5-5.1); SODIUM 139 mmol/L (136-145); eGFR NON AFRICAN AMERICAN > 90 mL/min (90-120)
[2016-09-19 09:52] LABS: UREA NITROGEN 11 mg/dL (7-18)
--- NOTE | 2016-09-19 13:28 | NUR ---
CALLED SURGERY SPOKE WITH REYNOLD. ASKED HER IF SHE COULD NOTIFY ANESTHESIA AND TELL THEM THERE ARE NOT ANY PRE-OP ORDERS. SHE STATED "YES I WILL."
--- NOTE | 2016-09-19 13:59 | NUR ---
PATIENT LEFT VIA BED TO THE O.R.
--- NOTE | 2016-09-19 14:00 | NUR ---
DID NOT GIVE PEPCID A PRE-OP MED BECAUSE PATIENT IS ON PEPCID 40MG IV Q12H
--- NOTE | 2016-09-19 16:27 | NUR ---
50ML EMPTIED FROM ERIKA DRAIN
--- NOTE | 2016-09-19 19:50 | NUR ---
ASSESSMENT COMPLETED, NO ACUTE DISTRESS NOTED, DENIES NEEDS AT THIS TIME, FALL AND ISOLATION PRECAUTIONS IN PLACE, CL IN REACH, WILL MONITOR
--- NOTE | 2016-09-19 21:12 | NUR ---
MEDS GIVEN PER MAR, JOHN WELL, CL IN REACH
--- NOTE | 2016-09-19 21:22 | NUR ---
INFORMATION SYSTEMS PLANNER FILLED PER ORDERS
[2016-09-20] VITALS: BP 121/57
--- NOTE | 2016-09-20 00:04 | NUR ---
DEMEROL BOLUS GIVEN PER PT REQUEST FOR C/O PAIN 12/29, JOHN WELL, CL IN REACH
--- NOTE | 2016-09-20 01:24 | NUR ---
RESTING WITH EYES CLOSED, NO DISTRESS NOTED, FALL AND ISOLATION PRECAUTIONS IN PLACE, CL IN REACH
--- NOTE | 2016-09-20 03:35 | NUR ---
DEMEROL BOLUS GIVEN PER ORDERS PER PT REQUEST FOR C/O ABD 03/01, JOHN WELL, CL IN REACH
[2016-09-20 04:00] VITALS: BP 161/82
--- NOTE | 2016-09-20 08:00 | NUR ---
ASSESSMENT PER FLOW SHEET.PT WITHOUT DISTRESS.DRESSING TO ABDOMEN CDI,WITH ABDOMINAL BINDER IN PLACE. ERIKA DRAIN RIGHT LOWER QUAD HAS SOME REDISH/PINK TINGED DRAINAGE IN BULB.CORRESPONDENCE SPECIALIST DC AND PO PAINMEDS INITIATED ORDERED.ZOFRAN PER PT REQUEST FOR MILD NAUSEA.DICK DC ORDERED WITH 500CC OF CLEAR YELLOW URINE IN DRAINAGE BAG.RIGHT IJ DCD WITH CATH TIP INTACT.PT TOLERATED WELL.CALL TO SISTER FOR TRANSPORT HOME THIS AM.CALL LIGHT IN REACH
[2016-09-20 08:41] VITALS: BP 125/70
[2016-09-20] MEDS ORDERED: VIBRAMYCIN 100100 MG PO (09:01)
[2016-09-20] MEDS ORDERED: HYDROCODON-ACE1 EAC7 PO (09:02)
[2016-09-20] MEDS ORDERED: LINEZOLID600 MG PO (09:02)
--- NOTE | 2016-09-20 09:17 | NUR ---
DISCHARGE INSTRUCTIONS,STATES UNDERSTANDING. 70CC OF PINK/ RED TINGED DRAINAGE EMPTIED FROM [facility] DRAIN WITH TEACHING.PT STATES UNDERSTANDING.RIDE HERE FOR TRANSPORT HOME.LEFT UNIT VIA WHEELCHAIR.
[2016-10-22] MEDS ORDERED: MEPERIDINE HCL50 MG PO (15:21)
== END 2016-09-20 09:17 | disposition home health service (06) | DRG 908 ==
LOC: D.ER 18:59 → D.ICU 23:31 → D.MS 23:31 → D.ICU 09-17 00:05 → D.MS 09-17 17:13
PROVIDERS: Emergency Medicine; ADMIT Surgery
PROC: 0JC80ZZ Extirpation of Matter from Abdomen Subcutaneous Tissue and Fascia, Open Approach (ICD-10-PCS; principal; 2016-09-17 13:15)
PROC: 0JD80ZZ Extraction of Abdomen Subcutaneous Tissue and Fascia, Open Approach (ICD-10-PCS; 2016-09-19)
DX: L76.32 Postprocedural hematoma of skin and subcutaneous tissue following other procedure (principal); D62 Acute posthemorrhagic anemia; N39.0 Urinary tract infection, site not specified; Y83.8 Other surgical procedures as the cause of abnormal reaction of the patient, or of later complication, without mention of misadventure at the time of the procedure; R55 Syncope and collapse; B95.62 Methicillin resistant Staphylococcus aureus infection as the cause of diseases classified elsewhere; B95.2 Enterococcus as the cause of diseases classified elsewhere

== ENCOUNTER 2016-09-29 06:12 | Emergency (ER) | payer MEDICARE ==
[2016-09-17 10:37] VITALS: BMI 63.2
[~2016-09-29 06:12] MED LIST changes: +HYDROCODON-ACE1 EAC7 PO; +LINEZOLID600 MG PO
[2016-09-29 07:47] LABS: BASOPHILS 0.2 % (0.0-2.0); EOSINOPHILS 3.6 % (0-7); HEMATOCRIT 32.2 % (36.0-48.0); HEMOGLOBIN 10.5 g/dL (12-16); IMMATURE GRANULOCYTES 0.7 % (0-5); LYMPHOCYTES 12.5 % (15-50); MCH 27.1 pg (26.0-34.0); MCHC 32.6 g/dL (31.0-37.0); MCV 83.2 fL (80.0-100.0); MEAN PLATELET VOLUME 11.1 fL (7.4-10.4); MONOCYTES 6.5 % (2-11); NEUTROPHILS 76.5 % (40-80); RBC 3.87 10x6/uL (4.00-5.40); RDW 13.5 % (11.5-14.5); WBC 12.1 10x3/uL (4.8-10.8)
[2016-09-29 07:48] LABS: PLATELET COUNT 224 10x3/uL (130-400)
[2016-09-29 07:59] LABS: ALBUMIN 3.3 g/dL (3.4-5.0); ANION GAP 13.8 mmol/L (8-16); BILIRUBIN - TOTAL 0.23 mg/dL (0.2-1.3); CALCIUM 9.2 mg/dL (8.5-10.1); CARBON DIOXIDE 26.9 mmol/L (21.0-32.0); CREATININE - SERUM 0.9 mg/dL (0.6-1.3); POTASSIUM - SERUM 3.7 mmol/L (3.5-5.1)
[2016-09-29 08:01] LABS: APPEARANCE CLEAR (CLEAR); BACTERIA FEW /hpf (NONE SEEN); BILIRUBIN NEGATIVE (NEGATIVE); COLOR YELLOW (YELLOW); EPITHELIAL CELLS 0-5 /hpf (0-5); GLUCOSE NEGATIVE (NEGATIVE); KETONE NEGATIVE (NEGATIVE); LEUKOCYTE ESTERASE 1+ (NEGATIVE); MUCUS <1+ /lpf (NONE SEEN); NITRITE NEGATIVE (NEGATIVE); PROTEIN NEGATIVE (NEGATIVE); RED CELLS - URINE 0-5 /hpf (0-5); SPECIFIC GRAVITY 1.015 (1.005-1.020); UROBILINOGEN NORMAL (NORMAL); WHITE CELLS - URINE 0-5 /hpf (0-5)
== END 2016-09-29 11:00 | disposition home or self-care (01) ==
LOC: D.ER 06:12
PROVIDERS: Emergency Medicine
DX: R10.9 Unspecified abdominal pain (principal); W19.XXXA Unspecified fall, initial encounter; Y93.89 Activity, other specified; Y92.019 Unspecified place in single-family (private) house as the place of occurrence of the external cause; I10 Essential (primary) hypertension; J45.909 Unspecified asthma, uncomplicated

== ENCOUNTER 2016-10-02 12:57 | Inpatient (IN) | payer MEDICARE ==
[~2016-10-02] VITALS: Ht 165.1 cm; Wt 163.7 kg
--- NOTE | ~2016-10-02 | HEMODYNAMI ---
PATIENT:AYAKA HEDRICK MEDICAL RECORD: [id number] : 73 LOCATION:D.[id number] ADMISSION DATE: 10/02/16 Generatedon:10/06/201616:04 Patient name: AYAKA HEDRICK Patient #: [id number] SSN: : 1975 Date of study: 10/06/2016 Page: Of Hemodynamic Procedure Report Patient Data Patient Demographics Procedure consent was obtained First Name: AYAKA Gender: Female Last Name: FLORIDALMA : 1975 Middle Initial: B Age: 41 year(s) Patient #: [id number] Race: Unknown Additional ID: [id number] Contact details [address]: [address] [place] [address] State: [place] City: [place] Zip code: [address] Admission Admission Data Admission Date: 10/02/2016 Admission Time: 17:30 Room #: 2237 Procedure Procedure Types Cath Procedure Peripheral Cath Diagnostic Procedure Miscellaneous Procedure Description Procedure Date Procedure Date: 10/06/2016 Procedure Start Time: 15:24 Procedure Staff Name Function Alexandra Magana RT Scrub Antonio Go RT Monitor Haider Arellano MD Performing Physician Carolynn Jenkins RN Nurse Procedure Data Cath Procedure Fluoroscopy Diagnostic fluoroscopy Total fluoroscopy Time: 2.7 time: 2.7 min min Diagnostic fluoroscopy Total fluoroscopy dose: 88 dose: 88 mGy mGy Contrast Material Contrast Material Type Amount (ml) Isovue 300 16 Diagnostic catheters Device Type Used For End Catheter Placement Merit Impress KA2 5Fr 65CM catheter Procedure Medications Medication Administration Route Dosage Fentanyl I.V. 50 mcg Versed I.V. 1 mg Fentanyl I.V. 50 mcg Versed I.V. 1 mg Fentanyl I.V. 50 mcg Versed I.V. 1 mg Fentanyl I.V. 50 mcg Versed I.V. 1 mg Versed I.V. 1 mg Fentanyl I.V. 50 mcg Versed I.V. 1 mg Fentanyl I.V. 50 mcg Hemodynamics Rest Heart Rate: 89 (bpm) Snapshots Pre Cath Intra NCS Post Cath Vital Signs Time Heart Resp SPO2 NIBP Rhythm Pain Status Sedation Rate (ipm) (%) (mmHg) Level (bpm) 15:19:25 90 20 99 145/88(0) NSR 0 (11) , No 10(A) pain 15:23:24 89 19 97 148/95(0) NSR 4 (11) , 10(A) Distressing 15:27:24 86 16 97 147/99(0) NSR 5 (11) , 10(A) Very distressing 15:28:36 90 14 96 No Cuff NSR 4 (11) , 10(A) Distressing 15:32:35 87 13 97 137/78(0) NSR 3 (11) , 10(A) Tolerable 15:36:35 90 13 98 135/88(0) NSR 3 (11) , 10(A) Tolerable 15:40:35 90 16 97 128/88(0) NSR 3 (11) , 10(A) Tolerable 15:44:34 91 17 97 134/91(0) NSR 3 (11) , 10(A) Tolerable 15:48:34 93 14 96 133/82(0) NSR 3 (11) , 10(A) Tolerable 15:52:34 91 15 96 130/85(0) NSR 3 (11) , 10(A) Tolerable 15:56:33 91 14 97 134/86(0) NSR 3 (11) , 10(A) Tolerable 16:00:33 89 22 96 141/88(0) NSR 3 (11) , 10(A) Tolerable Medications Time Medication Route Dose Verified Delivered Reason Notes Effectivene ss by by 15:17:50 Fentanyl I.V. 50 Carolynn Carolynn for mcg Gregory Gregory sedation RN RN 15:17:51 Versed I.V. 1 mg Carolynn Carolynn for Gregory Gregory sedation RN RN 15:23:06 Fentanyl I.V. 50 Carolynn Carolynn for mcg Gregory Gregory sedation RN RN 15:23:15 Versed I.V. 1 mg Carolynn Carolynn for Gregory Gregory sedation RN RN 15:30:52 Fentanyl I.V. 50 Carolynn Carolynn for mcg Gregory Gregory sedation RN RN 15:30:59 Versed I.V. 1 mg Carolynn Carolynn for Gregory Gregory sedation RN RN 15:35:09 Fentanyl I.V. 50 Carolynn Carolynn for mcg Gregory Gregory sedation RN RN 15:35:18 Versed I.V. 1 mg Carolynn Carolynn for Gregory Gregory sedation RN RN 15:40:35 Versed I.V. 1 mg Carolynn Carolynn for Gregory Gregory sedation RN RN 15:40:44 Fentanyl I.V. 50 Carolynn Carolynn for mcg Gregory Gregory sedation RN RN 15:49:33 Versed I.V. 1 mg Carolynn Carolynn for Gregory Gregory sedation RN RN 15:49:52 Fentanyl I.V. 50 Carolynn Carolynn for mcg Gregory Gregory sedation RN water restoration technician Log Time Note 14:24:12 Antonio Go RT (R) (CV) sent for patient. Start room use. 14:24:15 Time tracking: Regular hours 14:24:28 Plan of Care:Hemodynamics will remain stable., Cardiac rhythm will remain stable., Comfort level will be maintained., Respiratory function will remain adequate., Patient/ family verbilizes understanding of procedure., Procedure tolerated without complication.. 14:51:28 Patient received from Med/Surg to IR Alert and oriented. Tansferred to table in Supine position. 14:51:29 Correct patient and procedure confirmed by team. 14:51:31 ECG and BP/O2 sat monitors applied to patient. 14:51:31 Signed procedure consent form obtained from patient. 14:51:33 Full Disclosure recording started 14:51:33 - 14:51:39 H&P Date Dictated: 10/06/2016 Within 30 days and on chart.. 14:51:41 Pre-procedure instructions explained to patient. 14:51:42 Pre-op teaching completed and patient verbalized understanding. 14:51:44 Family in waiting room. 14:51:45 Patient NPO since Midnight. 14:51:53 Is the patient allergic to Iodine/contrast media? No. 14:51:54 Is patient on blood thinner?No 14:51:56 Patient diabetic? No. 14:51:57 ----Pre-sedation anethsthesia assessment.---- 14:51:57 - 14:52:01 Previous problem with sedation/anesthesia? No ? 14:52:03 Snore? Yes 14:52:05 Sleep apnea? No 14:52:09 Deviated septum? No 14:52:10 Opens mouth fully? Yes 14:52:11 Sticks out tongue? Yes 14:52:19 Airway obstruction? Yes asthma 14:52:26 Use device set IR Diagnostic 14:52:28 Bag Decanter opened to sterile field. 14:52:28 Sterile Angiographic Pack opened to sterile field. 14:52:42 Patient pain scale 0/10 no. 14:52:48 IV patent on arrival in left antecubital with 0.9% NaCl at KVO. 14:52:49 Sharps counted by scrub and verified by R.N. 14:52:50 Alarms reviewed by R. N. 14:52:57 Right abdomen area was prepped with chlora-prep and draped in sterile fashion 15:17:44 Physician arrived 15:17:45 --------ALL STOP TIME OUT------ 15:17:46 Final Timeout: patient, procedure, and site verified with staff and physician. All members of the team are in agreement. 15:17:49 Right abdomen site verified by team. 15:17:50 Fentanyl 50 mcg I.V. was administered by Carolynn Jenkins RN; for sedation; 15:17:51 Versed 1 mg I.V. was administered by Carolynn Jenkins RN; for sedation; 15:17:53 Physical assessment completed. ASA score P 3 - A patient with severe systemic disease as per Haider Arellano MD. 15:17:58 Sedation plan: IV Moderate Sedation Versed, Fentanyl 15:18:34 Vital chart was started 15:18:35 Baseline sample Acquired. 15:18:39 Rhythm: sinus rhythm 15:23:06 Fentanyl 50 mcg I.V. was administered by Carolynn Jenkins RN; for sedation; 15:23:15 Versed 1 mg I.V. was administered by Carolynn Jenkins RN; for sedation; 15:24:00 Procedure started. 15:24:29 Local anesthetic to Abdominal area with Lidocaine 1% by Haider Arellano MD.INITIAL ACCESS ONLY 15:24:[address]035 145 glide wire opened to sterile field. 15:24:32 Cook MULTIPURPOSE 18FR Drainage Catheter opened to sterile field. 15:24:34 BAG, DRAINAGE EMPTY 600ML W/NELSY opened to sterile field. 15:24:35 STOPCOCK 3-WAY LARGE BORE opened to sterile field. 15:30:52 Fentanyl 50 mcg I.V. was administered by Carolynn Jenkins RN; for sedation; 15:30:59 Versed 1 mg I.V. was administered by Carolynn Jenkins RN; for sedation; 15:32:43 A BULX KA2 5Fr 65CM catheter was advanced over the wire and used for . 15:35:09 Fentanyl 50 mcg I.V. was administered by Carolynn Jenkins RN; for sedation; 15:35:18 Versed 1 mg I.V. was administered by Carolynn Jenkins RN; for sedation; 15:40:35 Versed 1 mg I.V. was administered by Carolynn Jenkins RN; for sedation; 15:40:44 Fentanyl 50 mcg I.V. was administered by Carolynn Jenkins RN; for sedation; 15:46:54 SUTURE ETHILON 2-0 BLK MONO FS opened to sterile field. 15:49:33 Versed 1 mg I.V. was administered by Carolynn Jenkins RN; for sedation; 15:49:52 Fentanyl 50 mcg I.V. was administered by Carolynn Jenkins RN; for sedation; 15:59:02 Procedure ended.(Physican Out) 16:00:15 Fluoroscopy time 02.70 minutes. 16:00:24 Fluoroscopy dose: 88 mGy 16:00:24 Flurop Dose total: 88 16:00:28 Contrast amount:Isovue 300 16ml. 16:00:30 Sharps counted by scrub and verified by R.N. 16:00:31 Insertion/operative site no bleeding no hematoma. 16:00:36 Post-op/insertion site Right Abdominal area dressed using a 4 x 4 and Tegaderm. 16:00:44 Post Abdominal area:stable 16:01:06 18fr.drainage tube sutured in with 2.0 ethilon 16:01:11 Post-procedure physical assessment completed. ASA score P 3 - A patient with severe systemic disease as per Haider Arellano MD. 16:01:14 Post procedure rhythm: unchanged. 16:01:17 Post procedure instruction explained to patient.Patient verbalizes understanding. 16:01:18 Procedure and supply charges have been captured, reviewed, submitted an d are correct. 16:01:54 Report given to Med/Surg. 16:01:58 Patient transfered to Med/Surg with Bed. 16:02:10 Full Disclosure recording stopped Device Usage Item Name Manufacture Quantity Catalog Hospital Part Current Minimal Lot# / Number Charge Number Stock Stock Serial# Code Sterile Cardinal 1 [id number] 5 Angiographic Health Pack Bag Decanter Microtek 1 [id number] 73046 [id number] 5 Medical [employer] Cook Cook Medical 1 [id number] 5 [id number] [facility] .035 145 glide wire Cook Cook Medical 1 [id number] 5 [id number] MULTIPURPOSE 18FR Drainage Catheter BAG, Merit 1 [id number] [id number] [id number] 5 DRAINAGE Medical EMPTY 600ML W/NELSY STOPCOCK Cook Medical 1 [id number] [id number] [id number] 5 3-WAY LARGE BORE Merit Merit 1 [id number] 700594 [id number] 5 Impress KA2 Medical 5Fr 65CM catheter SUTURE Ethicon 1 [id number] 5 ETHILON 2-0 BLK MONO FS Signature Audit [place] Stage Time Signature Unsigned Intra-Procedure 10/06/2016 Antonio 4:04:17 PM Shuffield RT (R) (CV) Signatures Monitor : Antonio Signature : Shuffield RT Date : Time : [facility] [address] [place] [address]
[2016-10-02 16:01] LABS: ALBUMIN 2.8 g/dL (3.4-5.0); ALKALINE PHOSPHATASE 103 U/L (46-116); ALT (SGPT) 12 U/L (10-68); BILIRUBIN - TOTAL 0.41 mg/dL (0.2-1.3); CALC OSMOLALITY 272 mosm/kg (275-300); CALCIUM 8.7 mg/dL (8.5-10.1); CARBON DIOXIDE 25.3 mmol/L (21.0-32.0); CHLORIDE - SERUM 102 mmol/L (98-107); CREATININE - SERUM 0.7 mg/dL (0.6-1.3); GLUCOSE 92 mg/dL (74-106); POTASSIUM - SERUM 4.3 mmol/L (3.5-5.1); PROTEIN - SERUM 6.5 g/dL (6.4-8.2); SODIUM 136 mmol/L (136-145); UREA NITROGEN 14 mg/dL (7-18); eGFR NON AFRICAN AMERICAN > 90 mL/min (90-120)
[2016-10-02 16:52] LABS: BASOPHILS 0.3 % (0.0-2.0); EOSINOPHILS 3.4 % (0-7); HEMATOCRIT 31.3 % (36.0-48.0); HEMOGLOBIN 9.9 g/dL (12-16); IMMATURE GRANULOCYTES 0.3 % (0-5); LYMPHOCYTES 19.3 % (15-50); MCH 26.4 pg (26.0-34.0); MCHC 31.6 g/dL (31.0-37.0); MCV 83.5 fL (80.0-100.0); MEAN PLATELET VOLUME 10.7 fL (7.4-10.4); MONOCYTES 10.1 % (2-11); NEUTROPHILS 66.6 % (40-80); PLATELET COUNT 211 10x3/uL (130-400); RBC 3.75 10x6/uL (4.00-5.40); RDW 13.4 % (11.5-14.5)
--- NOTE | 2016-10-02 19:32 | NUR ---
PATIENT RESTING IN BED. ALERT AND ORIENTED. C/O PAIN 9/ TO ABDOMEN. PRN MORPHINE GIVEN ORDERED. ZOFRAN GIVEN FOR NAUSEA. DENIES ANY OTHER NEEDS AT THIS TIME. BED LOW. CALL LIGHT IN REACH
[2016-10-02] MEDS ORDERED: PERCOCET 7.5/321 TAB PO (19:43)
[2016-10-02] MEDS ORDERED: OMEPRAZOLE20 M1 PO (19:45)
[2016-10-02 20:00] VITALS: BP 151/81
[2016-10-02 22:49] LABS: APPEARANCE CLEAR (CLEAR); COLOR YELLOW (YELLOW)
[2016-10-02 22:50] LABS: BILIRUBIN NEGATIVE (NEGATIVE); GLUCOSE NEGATIVE (NEGATIVE); KETONE NEGATIVE (NEGATIVE); LEUKOCYTE ESTERASE NEGATIVE (NEGATIVE); NITRITE NEGATIVE (NEGATIVE); PROTEIN NEGATIVE (NEGATIVE); UROBILINOGEN NORMAL (NORMAL)
[2016-10-03] VITALS (7 sets, daily range): BP systolic 131–159; BP diastolic 62–99; Ht 165.1 cm; Wt 163.7 kg
--- NOTE | 2016-10-03 07:40 | NUR ---
AWAKE AND ALERT. ORIENTED X3. C/O PAIN TO ABDOMEN LEVEL 9. REQUESTED AND GIVEN 4MG MORPHINE SLOW IVP FOR SAME. WILL MONITOR. LUNGS ARE CLEAR BILATERLLY, NO COUGH NOTED. SKIN IS INTACT WITHOUT REDNESS EXCEPT INCISION TO RIGHT LOWER ABDOMEN WHICH HAS SUTURES IN PLACE WITH AREAS OF FIRMNESS NOTED ALONG INCISION LINE. ERIKA PATENT WITH SEROUS SANGUINESS DRAINAGE NOTED. IV TO RIGHT AC PATENT WITHOUT REDNESS AT INSERTION SITE. ABDOMENAL BINDER PLACED. UP TO BR PER SELF WITH SOME MIN ASSIST.
--- NOTE | 2016-10-03 09:15 | NUR ---
DR MIRANDA HERE. ORDERED ONE TIME DOSE OF MORPHINE 4MG FOR PAIN WITH MANIPULATION OF ERIKA. GIVEN SLOW IVP. WILL MONITOR.
--- NOTE | 2016-10-03 10:00 | NUR ---
RESTING IN BED WITH COMPUTER IN LAP. REPORTS PAIN IMPROVED WITH USE OF OFFICE ENGINEER.
[2016-10-03 11:59] LABS: BASOPHILS 0.2 % (0.0-2.0); EOSINOPHILS 3.6 % (0-7); HEMATOCRIT 31.6 % (36.0-48.0); HEMOGLOBIN 10.1 g/dL (12-16); IMMATURE GRANULOCYTES 0.2 % (0-5); LYMPHOCYTES 18.6 % (15-50); MCV 84.5 fL (80.0-100.0); MEAN PLATELET VOLUME 10.5 fL (7.4-10.4); MONOCYTES 10.2 % (2-11); NEUTROPHILS 67.2 % (40-80); PLATELET COUNT 253 10x3/uL (130-400); RBC 3.74 10x6/uL (4.00-5.40); RDW 13.6 % (11.5-14.5); WBC 6.5 10x3/uL (4.8-10.8)
[2016-10-03 12:14] LABS: ALBUMIN 2.9 g/dL (3.4-5.0); ALKALINE PHOSPHATASE 101 U/L (46-116); ALT (SGPT) 13 U/L (10-68); BILIRUBIN - TOTAL 0.47 mg/dL (0.2-1.3); CALCIUM 9.1 mg/dL (8.5-10.1); CARBON DIOXIDE 28.9 mmol/L (21.0-32.0); CHLORIDE - SERUM 101 mmol/L (98-107); CREATININE - SERUM 0.8 mg/dL (0.6-1.3); GLUCOSE 107 mg/dL (74-106); SODIUM 137 mmol/L (136-145); eGFR NON AFRICAN AMERICAN 83 mL/min (90-120)
[2016-10-03 12:18] LABS: CALC OSMOLALITY 271 mosm/kg (275-300); POTASSIUM - SERUM 3.5 mmol/L (3.5-5.1); UREA NITROGEN 7 mg/dL (7-18)
[2016-10-03 12:47] LABS: HEMOGLOBIN A1C 5.4 % (4.8-6.0)
--- NOTE | 2016-10-03 16:48 | NUR ---
Patient Name: AYAKA HEDRICK Admission Status: ER Accout number: [id number] Admission Date: 10-02-2016 : 1975 Admission Diagnosis:INFECTION FOLLOWING A PROCEDURE, INITIAL ENCOUNTER Attending: JOYA Current LOS: 1 Anticipated DC Date: 10-07-2016 Planned Disposition: Home Primary Insurance: [facility] Discharge Planning Comments: CM MET PATIENT REGARDING D/C NEEDS AND PLANS. PATIENT STATED SHE LIVES AT HOME WITH FAMILY AND ONE OF THEM WILL DRIVE HER HOME AT DISCHARGE. PATIENT STATED SHE HAS 2 STEPS TO ENTER HOME AND 1 FLIGHT OF STAIRS BUT DOES NOT USE THEM. PATIENT IS INDEPENDENT WITH HER CARE AND HAS A WALKER AT HOME. PATIENTS PCP IS DR. NESBITT AND PHARMACY IS [facility] [address] [facility]. PATIENT DOES NOT WANT HOME HEALTH AT DISCHARGE. CM WILL CONTINUE TO FOLLOW PATIENT WITH D/C NEEDS AND PLANS. PCP DR. DELICIA HADLEY [address] [facility] [phone] ADELITA GAUTHIER ([phone]) Equipment Validation Specialist: Rachael York Is the patient Alert and Oriented? Yes 0 * How many steps to enter\exit or inside your home? 2 W/O RAIL 0 * PCP DR. NESBITT 0 * Pharmacy [facility] [address] [facility] 0 * Preadmission Environment Home with Family 0 * ADLs Independent 0 * Equipment Walker 0 * List name and contact numbers for known caregivers / representatives who currently or will assist patient after discharge: ADELITA GAUTHIER [phone] * Community resources currently utilized None 0 * Additional services required to return to the preadmission environment? Yes 0 * Can the patient safely return to the preadmission environment? Yes 0 * Has this patient been hospitalized within the prior 30 days at any hospital? Yes 0 Grand Total: 0
--- NOTE | 2016-10-03 19:15 | NUR ---
NO CHANGES NOTED. ATE ABOUT HALF OF SUPPER. NO C/O AT THIS TIME. REPORTS NO FURTHER ITCHING SINCE INDUSTRIAL PHARMACIST CHANGED TO DEMEROL.
[2016-10-04 00:23] VITALS: BP 135/73
--- NOTE | 2016-10-04 01:40 | NUR ---
ASSESSED AT THE BEGINNING OF THE SHIFT. PT IS ALERT AND ORIENTED, FAMILY IN THE ROOM. ISOLATION IN PLACE. SHE HAS AN INCISION ACROSS HER LOWER ABD AND IT IS SECURED WITH A ABD BINDER. THERE IS A DEMEROL CORROSION CONTROL ENGINEER FOR PAIN CONTROL AND THE ERIKA DRAIN AT THE INCISION SITE IS COMPRESSED WITH LITTLE DRAINAGE IN BULB. SHE REQUESTED A BOLUS AND IT WAS GIVEN ORDERED. THE BED IS LOW, RAILS UP X'S 2 WITH THE CALL LIGHT AT HAND.
[2016-10-04 04:00] VITALS: BP 123/69
[2016-10-04 06:57] LABS: BASOPHILS 0.2 % (0.0-2.0); EOSINOPHILS 3.9 % (0-7); HEMATOCRIT 30.4 % (36.0-48.0); HEMOGLOBIN 9.6 g/dL (12-16); IMMATURE GRANULOCYTES 0.2 % (0-5); LYMPHOCYTES 14.2 % (15-50); MCH 26.9 pg (26.0-34.0); MCHC 31.6 g/dL (31.0-37.0); MCV 85.2 fL (80.0-100.0); MEAN PLATELET VOLUME 10.8 fL (7.4-10.4); MONOCYTES 11.6 % (2-11); NEUTROPHILS 69.9 % (40-80); PLATELET COUNT 246 10x3/uL (130-400); RBC 3.57 10x6/uL (4.00-5.40); RDW 13.6 % (11.5-14.5); WBC 6.4 10x3/uL (4.8-10.8)
[2016-10-04 07:22] LABS: ALBUMIN 2.6 g/dL (3.4-5.0); ALKALINE PHOSPHATASE 108 U/L (46-116); ALT (SGPT) 15 U/L (10-68); CALC OSMOLALITY 271 mosm/kg (275-300); CALCIUM 9.1 mg/dL (8.5-10.1); CARBON DIOXIDE 31.2 mmol/L (21.0-32.0); CHLORIDE - SERUM 101 mmol/L (98-107); CREATININE - SERUM 0.6 mg/dL (0.6-1.3); GLUCOSE 137 mg/dL (74-106); POTASSIUM - SERUM 3.7 mmol/L (3.5-5.1); PROTEIN - SERUM 6.4 g/dL (6.4-8.2); SODIUM 136 mmol/L (136-145); UREA NITROGEN 6 mg/dL (7-18); eGFR NON AFRICAN AMERICAN > 90 mL/min (90-120)
--- NOTE | 2016-10-04 07:30 | NUR ---
AWAKE AND ALERT. ORIENTED X3. NO C/O AT THIS TIME. LUNGS ARE CLEAR BILATERALLY, NO COUGH NOTED. SKIN IS INTACT WITHOUT REDNESS EXCEPT INCISION TO LOWER ABDOMEN WHICH IS CLEAN DRY AND WELL APPROXIMATED AT THIS TIME. ERIKA PATENT WITH SCANT DRAINAGE NOTED. IV TO RIGHT FOREARM IS PATENT WITHOUT REDNESS AT INSERTION SITE. FAMILY AT BEDSIDE. DENIES NEEDS.
[2016-10-04 08:20] VITALS: BP 127/57
--- NOTE | 2016-10-04 08:30 | NUR ---
REQUESTED AND GIVEN 25MG BOLUS ON HEADING SAW OPERATOR FOR INCREASED PAIN. WILL MONITOR.
[2016-10-04 09:41] LABS: APTT 30.7 SECONDS (22.8-39.4); INR 1.1 (0.85-1.17)
[2016-10-04 12:55] VITALS: BP 147/91
[2016-10-04 16:37] VITALS: BP 105/60
--- NOTE | 2016-10-04 18:27 | NUR ---
ATE ALMOST ALL OF SUPPER SITTING UP IN CHAIR AT BEDSIDE. DENIES NEEDS. NO C/O VOICED. NO CHANGES NOTED.
--- NOTE | 2016-10-04 18:36 | NUR ---
ATE ABOUT HALF OF SUPPER. C/O INCREASED PAIN. REQUESTED AND GIVEN BOLUS FOR SAME. WILL MONITOR.
[2016-10-04 20:00] VITALS: BP 119/63
--- NOTE | 2016-10-04 23:20 | NUR ---
PT WAS MEDICATED AT THIS TIME FOR C/O PAIN RATING 9/10 PAIN SCALE.
[2016-10-05] VITALS: BP 129/74
[2016-10-05 04:00] VITALS: BP 117/65
--- NOTE | 2016-10-05 04:47 | NUR ---
PATIENT RESTING WITH EYES CLOSED. NO VISIBLE SIGNS OF DISTRESS. BED IN LOWEST POSITION AND CALL LIGHT WITHIN REACH.
--- NOTE | 2016-10-05 05:15 | NUR ---
PT WAS MEDICATED WITH BOLUS AT THIS TIME FOR C/O PAIN RATING 9/10 ON PAIN SCALE.
[2016-10-05 06:59] LABS: BASOPHILS 0.1 % (0.0-2.0); EOSINOPHILS 4.2 % (0-7); HEMOGLOBIN 9.1 g/dL (12-16); IMMATURE GRANULOCYTES 0.1 % (0-5); LYMPHOCYTES 15.2 % (15-50); MCH 26.5 pg (26.0-34.0); MCHC 31.4 g/dL (31.0-37.0); MCV 84.5 fL (80.0-100.0); MEAN PLATELET VOLUME 10.6 fL (7.4-10.4); MONOCYTES 8.5 % (2-11); NEUTROPHILS 71.9 % (40-80); PLATELET COUNT 213 10x3/uL (130-400); RBC 3.43 10x6/uL (4.00-5.40); RDW 13.9 % (11.5-14.5); WBC 7.2 10x3/uL (4.8-10.8)
[2016-10-05 07:21] LABS: ALBUMIN 2.5 g/dL (3.4-5.0); ALKALINE PHOSPHATASE 102 U/L (46-116); ALT (SGPT) 12 U/L (10-68); BILIRUBIN - TOTAL 0.29 mg/dL (0.2-1.3); CALC OSMOLALITY 276 mosm/kg (275-300); CALCIUM 8.6 mg/dL (8.5-10.1); CARBON DIOXIDE 28.1 mmol/L (21.0-32.0); CHLORIDE - SERUM 103 mmol/L (98-107); CREATININE - SERUM 0.6 mg/dL (0.6-1.3); GLUCOSE 130 mg/dL (74-106); POTASSIUM - SERUM 3.7 mmol/L (3.5-5.1); PROTEIN - SERUM 6.4 g/dL (6.4-8.2); SODIUM 139 mmol/L (136-145); eGFR NON AFRICAN AMERICAN > 90 mL/min (90-120)
[2016-10-05 07:24] LABS: UREA NITROGEN 4 mg/dL (7-18)
--- NOTE | 2016-10-05 07:30 | NUR ---
AWAKE AND ALERT. ORIENTED X3. NO C/O THIS AM. LUNGS ARE CLEAR BILATERALLY, NO COUGH NOTED. SKIN IS INTACT WITHOUT REDNESS EXCEPT ABDOMINAL INCISION WHICH IS CLEAN AND DRY WITH SUTURES IN PLACE. IV TO LEFT AC IS PATENT WITHOUT REDNESS AT INSERTION SITE. DENIES NEEDS.
--- NOTE | 2016-10-05 10:00 | NUR ---
REQUESTED AND GIVEN BOLUS ON BACKSHOE PERSON FOR PAIN LEVEL 7. WILL MONITOR.
[2016-10-05 10:07] VITALS: BP 130/65
[2016-10-05 12:50] VITALS: BP 124/68
[2016-10-05 17:17] VITALS: BP 129/58
--- NOTE | 2016-10-05 18:27 | NUR ---
RESTING QUIETLY IN BED AFTER UP TO BR PER SELF. DENIES NEEDS. NO CHANGES NOTED.
[2016-10-05 19:00] VITALS: BP 109/65
--- NOTE | 2016-10-05 20:00 | NUR ---
REC'D IN ROOM AWAKE AND ALERT. RESP EVEN AND UNLABORED WITH NO DISTESS. CAN EXPRESS NEEDS AND WANTS. ASSESSMENT COMPLETED. C/O PAIN RATING 7/10 ON PAIN SCALE WITH DECORATOR LIGHTING FIXTURES IN USE AT THIS TIME.
--- NOTE | 2016-10-05 22:40 | NUR ---
DR PIMENTEL HERE ON [facility] SPOKE WITH HER ABOUT PT IV GOING BAD AND THAT SHE HAS HAD SEVERAL AND HAS INFILTRATED . AND THAT SHE IS SCHEDULE FOR A PICC LINE PLACE ON 10/06. REC'D ORDERS TO DISCONTNUE ALL IV MEDICATION AND START GIVEN PAIN MEDICATION VIA IM INJECTIONS. PT WAS INFORMED OF NEW ORDERS AND AGRESS WITH POC. C/L N REACH AT BEDSIDE.
--- NOTE | 2016-10-05 22:45 | NUR ---
PT IV INFILTRATED AND WAS DISCONTINUE AT THIS TIME. C/L IN REACH AT BEDSIDE.
[2016-10-06] VITALS (12 sets, daily range): BP systolic 114–143; BP diastolic 64–87
--- NOTE | 2016-10-06 05:23 | NUR ---
RESTING WITH EYES CLOSED NOT DISTRESS NOTED. C/L IN REACH AT BEDSIDE.
[2016-10-06 06:10] LABS: BASOPHILS 0.1 % (0.0-2.0); EOSINOPHILS 3.7 % (0-7); HEMATOCRIT 28.8 % (36.0-48.0); HEMOGLOBIN 8.8 g/dL (12-16); IMMATURE GRANULOCYTES 0.1 % (0-5); LYMPHOCYTES 14.9 % (15-50); MCHC 30.6 g/dL (31.0-37.0); MEAN PLATELET VOLUME 10.4 fL (7.4-10.4); NEUTROPHILS 72.2 % (40-80); PLATELET COUNT 238 10x3/uL (130-400); RBC 3.39 10x6/uL (4.00-5.40); WBC 7.3 10x3/uL (4.8-10.8)
[2016-10-06 06:30] LABS: ALBUMIN 2.4 g/dL (3.4-5.0); ALKALINE PHOSPHATASE 96 U/L (46-116); ALT (SGPT) 9 U/L (10-68); BILIRUBIN - TOTAL 0.28 mg/dL (0.2-1.3); CALC OSMOLALITY 275 mosm/kg (275-300); CALCIUM 8.6 mg/dL (8.5-10.1); CARBON DIOXIDE 30.2 mmol/L (21.0-32.0); CHLORIDE - SERUM 104 mmol/L (98-107); CREATININE - SERUM 0.7 mg/dL (0.6-1.3); GLUCOSE 107 mg/dL (74-106); POTASSIUM - SERUM 3.3 mmol/L (3.5-5.1); PROTEIN - SERUM 6.1 g/dL (6.4-8.2); SODIUM 140 mmol/L (136-145); UREA NITROGEN 4 mg/dL (7-18); eGFR NON AFRICAN AMERICAN > 90 mL/min (90-120)
--- NOTE | 2016-10-06 08:00 | NUR ---
PT AOX4 RESP EVEN AND NONLABORED NO IV ACCESS AT THIS TIME BED AT LOWEST SETTING CALL LIGHT WITHIN REACH WILL CONTINUE TO MONITOR
--- NOTE | 2016-10-06 13:10 | NUR ---
PT ON BACK IN BED RESP EVEN AND NONLABORED IV TO RIGHT AC PATENT AND INTACT PT IN FOR PNEUMONIA IV ANTIBIOTICS AND FLUIDS GIVEN DURING THIS SHIFT BED IN LOWEST POSTION SRX2 CALL LIGHT WITHIN REACH
--- NOTE | 2016-10-06 20:00 | NUR ---
PATIENT RESTING IN BED WITH EYES CLOSED. BED IN LOWEST POSITION AND CALL LIGHT WITHIN REACH.
[2016-10-07] VITALS: BP 119/68
[2016-10-07 04:00] VITALS: BP 124/58
[2016-10-07 07:44] LABS: BASOPHILS 0.2 % (0.0-2.0); HEMOGLOBIN 8.4 g/dL (12-16); IMMATURE GRANULOCYTES 0.2 % (0-5); LYMPHOCYTES 17.4 % (15-50); MCH 26.5 pg (26.0-34.0); MCHC 31.1 g/dL (31.0-37.0); MCV 85.2 fL (80.0-100.0); MEAN PLATELET VOLUME 10.2 fL (7.4-10.4); NEUTROPHILS 69.2 % (40-80); PLATELET COUNT 239 10x3/uL (130-400); RBC 3.17 10x6/uL (4.00-5.40); RDW 13.9 % (11.5-14.5); WBC 6.1 10x3/uL (4.8-10.8)
[2016-10-07 08:09] LABS: ALBUMIN 2.3 g/dL (3.4-5.0); ALKALINE PHOSPHATASE 97 U/L (46-116); ALT (SGPT) 10 U/L (10-68); BILIRUBIN - TOTAL 0.25 mg/dL (0.2-1.3); CALC OSMOLALITY 277 mosm/kg (275-300); CALCIUM 8.4 mg/dL (8.5-10.1); CARBON DIOXIDE 34.2 mmol/L (21.0-32.0); CHLORIDE - SERUM 101 mmol/L (98-107); CREATININE - SERUM 0.7 mg/dL (0.6-1.3); GLUCOSE 124 mg/dL (74-106); POTASSIUM - SERUM 3.5 mmol/L (3.5-5.1); SODIUM 140 mmol/L (136-145); UREA NITROGEN 6 mg/dL (7-18); eGFR NON AFRICAN AMERICAN > 90 mL/min (90-120)
--- NOTE | 2016-10-07 08:21 | NUR ---
PT AOX4 RESP EVEN AND NONLABORED SRX2 MIDLINE IV IN LEFT UPPER ARM PATENT AND INTACT BED AT LOWEST SETTING CALL LIGHT WITHIN REACH WILL CONTINUE TO MONITOR
[2016-10-07 09:09] VITALS: BP 110/79
[2016-10-07 11:41] VITALS: BP 154/64
--- NOTE | 2016-10-07 12:45 | NUR ---
PT AOX4 RESP EVEN AND NONLABORED UPON ENTRY TO ROOM WITH X2 STUDENT NURSES PT. PUSHED PAIN PUMP BUTTON.PT COMPLAINS OF PAIN OF 8-9 IN ABDOMEN.MIDLINE IV TO LEFT UPPER ARM PATENT AND INTACT. MD ORDERED DISCONTINUED SHIP'S COOK DEMEROL PAIN PUMP AND IM DEMEROL PAIN MEDS. PT STATES-"CAN I HAVE A BOLUS". PT TOLD NO THERE IS NO LONGER AN ORDER FOR THAT PAIN MEDICATION. DRAIN FLUSH DONE PER ORDERS WITH NO COMPLAINTS OF DISCOMFORT FROM THE FLUSH. RECEIVING 200ML OF TOTAL DRAINAGE FROM DRAIN AT THIS TIME
--- NOTE | 2016-10-07 14:15 | NUR ---
PT STATES SHE RECEIVED A CUT ON HER RIGHT FOOT FROM GLASS ON THE FLOOR. SKIN CHECKED ON RIGHT FOOT SKIN IS INTACT WITH NO LACERATIONS OR SKIN ABNORMALITY AT THIS TIME WILL CONTINUE TO MONITOR
--- NOTE | 2016-10-07 14:35 | NUR ---
NUTRITION MONITORING & EVAL CHART REVIEWED. REMAINS IN ISOLATION. TOLERATING REG DIET. RD FOLLOWING
--- NOTE | 2016-10-07 19:00 | NUR ---
PATIENT SUPINE IN BED. HOB 30 DEGREES. AAOX4. RR EVEN AND UNLABORED. 0 S/S OF DISTRESS. STATES PAIN IS A 9/10. LEFT MIDLINE PATENT WITH DRESSING CDI. ABD INCISION RED AND SWOLLEN WITH SUTURES. BILI DRAIN DRAINING BLOODY FLUID TO GRAVITY. SCD'S IN ROOM BUT OFF. SRX2. BED LOW. CALL LIGHT WITHIN REACH.
[2016-10-07 19:51] VITALS: BP 127/95
--- NOTE | 2016-10-07 20:45 | NUR ---
ASSESSMENT COMPLETE. NIGHTTIME MEDS GIVEN. OXY IR GIVEN FOR PAIN. AMBIEN GIVEN FOR SLEEP. BILI DRAIN FLUSHED AND EMPTIED.
--- NOTE | 2016-10-07 22:40 | NUR ---
PATIENT IN TEARS STATING THAT SHE NEEDS SOMETHING FOR BREAKTHROUGH PAIN. PAGED DR. MIRANDA. ESMEID GIVEN PER TELEPHONE ORDER.
[2016-10-07 23:41] VITALS: BP 154/64
--- NOTE | 2016-10-08 00:45 | NUR ---
PATIENT STATES PAIN IS STILL A 9/10. OXY IR AND FLEXERIL GIVE PER ORDER. HEAT PACK APPLIED TO ABD.
--- NOTE | 2016-10-08 02:30 | NUR ---
PATIENT SLEEPING WITH NO DISTRESS NOTED. CALL LIGHT WITHIN REACH.
[2016-10-08 04:01] VITALS: BP 138/74
[2016-10-08 06:31] LABS: BASOPHILS 0.3 % (0.0-2.0); EOSINOPHILS 7.7 % (0-7); HEMATOCRIT 29.2 % (36.0-48.0); HEMOGLOBIN 8.9 g/dL (12-16); IMMATURE GRANULOCYTES 0.3 % (0-5); LYMPHOCYTES 26.2 % (15-50); MCHC 30.5 g/dL (31.0-37.0); MCV 85.4 fL (80.0-100.0); MEAN PLATELET VOLUME 10.9 fL (7.4-10.4); MONOCYTES 8.1 % (2-11); NEUTROPHILS 57.4 % (40-80); PLATELET COUNT 263 10x3/uL (130-400); RBC 3.42 10x6/uL (4.00-5.40); RDW 14.1 % (11.5-14.5); WBC 5.8 10x3/uL (4.8-10.8)
--- NOTE | 2016-10-08 06:50 | NUR ---
MORNING MEDS GIVEN. BILI DRAIN FLUSHED. DILAUDID GIVEN FOR PAIN.
[2016-10-08 07:14] LABS: ALBUMIN 2.6 g/dL (3.4-5.0); ALKALINE PHOSPHATASE 91 U/L (46-116); ALT (SGPT) 10 U/L (10-68); BILIRUBIN - TOTAL 0.19 mg/dL (0.2-1.3); CALC OSMOLALITY 279 mosm/kg (275-300); CALCIUM 8.5 mg/dL (8.5-10.1); CARBON DIOXIDE 30.1 mmol/L (21.0-32.0); CHLORIDE - SERUM 101 mmol/L (98-107); CREATININE - SERUM 0.6 mg/dL (0.6-1.3); GLUCOSE 116 mg/dL (74-106); POTASSIUM - SERUM 3.4 mmol/L (3.5-5.1); PROTEIN - SERUM 5.6 g/dL (6.4-8.2); SODIUM 141 mmol/L (136-145); UREA NITROGEN 6 mg/dL (7-18); eGFR NON AFRICAN AMERICAN > 90 mL/min (90-120)
--- NOTE | 2016-10-08 07:30 | NUR ---
AWAKE AND ALERT. ORIENTED X3. NO C/O AT THIS TIME. LUNGS ARE CLEAR BILATERALLY, NO COUGH NOTED. SKIN IS INTACT WITHOUT REDNESS EXCEPT HEALING INCISIONAL WOUND TO ABDOMEN WHICH IS CLEAN AND DRY WITH SUTURES INTACT. BILIARY DRAIN TO RIGHT LOWER QUAD IS ALSO INTACT WITH SEROUS CLOUDY DRAINAGE NOTED. LEFT UPPER ARM MIDLINE IS PATENT WITHOUT REDNESS AT INSERTION SITE. DENEIS NEEDS AT THIS TIEM.
[2016-10-08 08:23] VITALS: BP 121/83
[2016-10-08] MEDS ORDERED: VIBRAMYCIN 100100 MG PO (09:33)
--- NOTE | 2016-10-08 10:30 | NUR ---
SUTURES TO MID ABDOMINAL INCISION D/C WITHOUT DIFFICULTY. MIDLINE D/C WITH TIP INTACT APPROXIMATLY 16CM LONG. TOLERATED WITHOUT DIFFICULTY.
[2016-10-08] MEDS ORDERED: ACIDOPHILUS LAC1 CAP PO (10:33)
--- NOTE | 2016-10-08 11:03 | NUR ---
CM REASSESSMENT NOTE : PATIENT IS DISCHARGING HOME TODAY WITH [facility] - FAMILY DRIVING HER HOME. PATIENT SIGNED THE MARGOT FORM - IMM SERVED
[2016-10-08 13:05] VITALS: BP 114/77
--- NOTE | 2016-10-08 13:30 | NUR ---
DISCHARGE INSTRUCTIONS GIVEN TO PATIENT BOTH VERBALLY AND WRITTEN. ALL QUESTIONS ANSWERED. NEW PRESCRIPTIONS CALLED TO PHARMACY OF CHOICE. AWAITING RIDE TO D/C HOME.
--- NOTE | 2016-10-08 14:05 | NUR ---
DISCHARGED HOME WITH FAMILY AMBULATORY.
== END 2016-10-08 14:05 | disposition home health service (06) | DRG 863 ==
LOC: D.ER 12:57 → D.MS 17:30
PROVIDERS: Family Medicine; General Practice; Physician Assistant; Radiology Diagnostic Radiology; ADMIT Emergency Medicine
PROC: B54NZZA Ultrasonography of Left Upper Extremity Veins, Guidance (ICD-10-PCS; 2016-10-06)
PROC: 0W2FX0Z Change Drainage Device in Abdominal Wall, External Approach (ICD-10-PCS; 2016-10-06)
PROC: 05HC33Z Insertion of Infusion Device into Left Basilic Vein, Percutaneous Approach (ICD-10-PCS; principal; 2016-10-06 15:05)
DX: T81.4XXA Infection following a procedure, initial encounter (principal); L02.211 Cutaneous abscess of abdominal wall; Z68.44 Body mass index [BMI] 60.0-69.9, adult; B37.0 Candidal stomatitis; E66.9 Obesity, unspecified; J45.909 Unspecified asthma, uncomplicated; I10 Essential (primary) hypertension; R07.9 Chest pain, unspecified; R94.31 Abnormal electrocardiogram [ECG] [EKG]; G62.9 Polyneuropathy, unspecified; B95.62 Methicillin resistant Staphylococcus aureus infection as the cause of diseases classified elsewhere; B37.2 Candidiasis of skin and nail

== ENCOUNTER 2016-10-18 18:48 | Emergency (ER) | payer MEDICARE ==
[2016-10-03 14:56] VITALS: BMI 60.0
[~2016-10-18 18:48] MED LIST changes: +ACIDOPHILUS LAC1 CAP PO; +OMEPRAZOLE20 M1 PO; +PERCOCET 7.5/321 TAB PO
[2016-10-18 20:11] LABS: BASOPHILS 0.1 % (0-2); EOSINOPHILS 1.1 % (0-7); HEMATOCRIT 37.7 % (36.0-48.0); HEMOGLOBIN 11.9 g/dL (12-16); IMMATURE GRANULOCYTES 0.2 % (0-5); LYMPHOCYTES 18.7 % (15-50); MCH 25.9 pg (26.0-34.0); MCHC 31.6 g/dL (31.0-37.0); MCV 82.1 fL (80.0-100.0); MEAN PLATELET VOLUME 10.6 fL (7.4-10.4); MONOCYTES 5.6 % (2-11); NEUTROPHILS 74.3 % (40-80); PLATELET COUNT 265 10x3/uL (130-400); RBC 4.59 10x6/uL (4.00-5.40); RDW 14.3 % (11.5-14.5); WBC 9.1 10x3/uL (4.8-10.8)
[2016-10-18 20:25] LABS: ALBUMIN 3.7 g/dL (3.4-5.0); ALKALINE PHOSPHATASE 119 U/L (46-116); ALT (SGPT) 18 U/L (10-68); BILIRUBIN - TOTAL 0.23 mg/dL (0.2-1.3); CALC OSMOLALITY 283 mosm/kg (275-300); CHLORIDE - SERUM 104 mmol/L (98-107); CREATININE - SERUM 0.8 mg/dL (0.6-1.3); GLUCOSE 104 mg/dL (74-106); POTASSIUM - SERUM 3.3 mmol/L (3.5-5.1); SODIUM 143 mmol/L (136-145); UREA NITROGEN 9 mg/dL (7-18); eGFR NON AFRICAN AMERICAN 83 mL/min (90-120)
[2016-10-22] MEDS ORDERED: MEPERIDINE HCL50 MG PO (15:21)
== END 2016-10-18 22:54 | disposition home or self-care (01) ==
LOC: D.ER 18:48
PROVIDERS: Emergency Medicine
DX: G89.18 Other acute postprocedural pain (principal); I10 Essential (primary) hypertension; J45.909 Unspecified asthma, uncomplicated

== ENCOUNTER 2016-10-23 13:19 | Day surgery (SDC) | payer MEDICARE ==
[2016-10-23] VITALS (11 sets, daily range): BP systolic 143–188; BP diastolic 60–92; Ht 165.1 cm; Wt 158.6 kg
[~2016-10-23] VITALS: Ht 165.1 cm; Wt 158.6 kg
[~2016-10-23 13:19] MED LIST changes: +MEPERIDINE HCL50 MG PO
[2016-10-23] MEDS ORDERED: VIBRAMYCIN 100100 MG PO (15:21)
[2016-10-23 16:01] LABS: BASOPHILS 0.1 % (0-2); EOSINOPHILS 2.9 % (0-7); HEMATOCRIT 35.3 % (36.0-48.0); HEMOGLOBIN 11.3 g/dL (12-16); IMMATURE GRANULOCYTES 0.1 % (0-5); LYMPHOCYTES 20.4 % (15-50); MCV 81.3 fL (80.0-100.0); MEAN PLATELET VOLUME 11.3 fL (7.4-10.4); MONOCYTES 6.5 % (2-11); PLATELET COUNT 225 10x3/uL (130-400); RBC 4.34 10x6/uL (4.00-5.40); RDW 14.1 % (11.5-14.5); WBC 6.8 10x3/uL (4.8-10.8)
[2016-10-23 16:35] LABS: APTT 25.5 SECONDS (22.8-39.4); INR 1.03 (0.85-1.17); PROTIME 13.4 SECONDS (11.6-15.0)
--- NOTE | 2016-10-23 17:54 | NUR ---
PATIENT RECEIVED TO FLOOR FROM PACU VIA BED A/O X4. NO SIGNS OF DISTRESS NOTED. VITAL SIGNS STABLE. ORIENTED TO ROOM. DRESSING TO RIGHT HAND CLEAN, DRY AND INTACT. RATES PAIN 7/10. SIDE RAILS UP X2. BED IN LOW POSITION. CALL LIGHT IN REACH.
--- NOTE | 2016-10-23 18:05 | NUR ---
PATIENT ALERT IN BED. RATES PAIN 12/29. BEGAN TO CRY ASKING "WHEN IS THE PAIN PUMP GONING TO BE SET UP?"
--- NOTE | 2016-10-23 18:11 | NUR ---
MONICA BRAKE LINING FINISHER ASBESTOS SET UP ACCORING TO ORDERS. USE EXPLAINED. STATES UNDERSTANDING. BUTTON WITHIN REACH.
--- NOTE | 2016-10-23 19:00 | NUR ---
BEDSIDE REPORT RECEIVED AND CARE OF PT ASSUMED. PT LYING IN SEMI KUMARI'S POSITIONS TALKING ON THE PHONE. IV IN LEFT AC PATENT WHTI 1/2 NS INFUSING AT 50 ML / HR; AND ENTRANCE GUARD - DILAUDID IN USE FOR PAIN CONTROL. DRESSING ON RIGHT HAND CLEAN AND DRY. WILL MONITOR CLOSLEY FOR NEEDS. CALL LIGHT WITHIN REACH.
--- NOTE | 2016-10-23 21:30 | NUR ---
HS MEDICATIONS GIVEN. ORDER RECEIVED TO ADD HOME MED AMBIEN TO ORDERS. WILL CONTINUE TO MONITOR FOR NEEDS. CALL LIGHT WITHIN REACH.
--- NOTE | 2016-10-23 22:08 | NUR ---
GAVE ZOFRAN 4 MG PO PER PT REQUEST FOR NAUSEA. WILL MONITOR FOR EFFECTIVENESS.
--- NOTE | 2016-10-23 23:07 | NUR ---
GAVE 0.4 MG DILAUDID BOLUS VIA ROTARY ENGRAVER PUMP PER PT REQUEST FOR PAIN AT LEVEL 8/10. WILL MONITOR FOR EFFECTIVENESS.
[2016-10-24] VITALS: BP 146/99
--- NOTE | 2016-10-24 02:00 | NUR ---
GAVE DILAUDID 0.4MG BOLUS VIA PUMP PER PT REQUEST FOR PAIN AT LEVEL 9/10. WILL MONITOR FOR EFFECTIVENESS. SIDE RAILS UP X2 FOR SAFETY.
--- NOTE | 2016-10-24 03:16 | NUR ---
PT C/O NAUSEA AND HAD ?EMESIS APPROX 10CC IN BLUE BAG. GAVE ZOFRAN 4 MG IVP PER PRN ORDER. TURNED OFF ELECTRICITY TRADING ANALYST PUMP FOR A WHILE TO SEE IF DILAUDID CAUSING NAUSEA. PT C/O TAKES DEMERAL AT HOME AND WONDERS WHY SHE ISN'T ON IT HERE....EVEN THOUGH SHE STATES THAT DEMERAL AT HOME "DIDN'T TOUCH THE PAIN IN HER HAND." OFFERED TO CALL PHYSICIAN TO SEE IF HE WOULD CHANGE ELECTRICITY TRADING ANALYST MED, BUT PT DECLINES. CHANGED GOWN, OPENING ON ABDOMINAL INCISION LEAKING AND DRESSING CAME OFF. REPLACED DRESSING WITH X2 2x2 GAUZE PADS AND MEDIPORE TAPE. PARTIAL LINEN CHANGE PERFORMED. TURNED ELECTRICITY TRADING ANALYST BACK ON...PT RESTING QUIETLY WITH NO NAUSEA AT THIS TIME.
[2016-10-24 04:00] VITALS: BP 177/73
--- NOTE | 2016-10-24 05:30 | NUR ---
FOUND IV UNHOOKED AND DRIPPING ON THE FLOOR. PT NOTICED AND STARTED CRYING SAYING THAT SHE WASN'T GETTING HER PAIN MED. GAVE BOLUS DOSE VIA DIE MECHANIC PUMP. WILL CONTINUE TO MONITOR FOR NEEDS.
--- NOTE | 2016-10-24 06:08 | NUR ---
GAVE NORCO 10 PO PER PRN ORDER FOR PAIN AT LEVEL 10/10....PT SITTING UP WATCHING TV WITH NO FACIAL GRIMACING OR MOANING. WILL MONITOR FOR EFFECTIVENESS. CALL LIGHT WITHIN REACH.
[2016-10-24 06:37] LABS: HEMATOCRIT 35.8 % (36.0-48.0); HEMOGLOBIN 11.2 g/dL (12-16)
[2016-10-24 07:50] VITALS: BP 187/92
--- NOTE | 2016-10-24 10:04 | NUR ---
PATIENT ALERT IN BED WITH ELECTRONIC TABLET IN HAND. SCHEDULED MEDICATION ADMINISTERED. SIDE RAILS UP X2. BED IN LOW POSITION. CALL LIGHT AND CLINICAL SUPERVISOR BUTTON IN REACH.
--- NOTE | 2016-10-24 11:39 | OP ---
PATIENT NAME: AYAKA HEDRICK MEDICAL RECORD: [id number] :73 LOCATION:D.MS Agustin2217 ADMISSION DATE: SURGEON: MERISSA TANNER MD DATE OF OPERATION: 10/23/2016 Orthopedic Surgery Operative Note PREOPERATIVE DIAGNOSIS: Full-thickness skin necrosis on the hypothenar eminence of the right hand. POSTOPERATIVE DIAGNOSIS: Full-thickness skin necrosis on the hypothenar eminence of the right hand. PROCEDURE: Excision of full thickness skin necrosis with immediate closure reconstruction. SURGEON: Merissa Tanner MD. ANESTHESIA: General. INTRAOPERATIVE COMPLICATIONS: None. SUMMARY OF PATHOLOGIC FINDINGS: This evidently IV burn was a complete full thickness and required excision of the skin and subcutaneous fat down to the fascial plane. OPERATIVE SUMMARY IN DETAIL: After obtaining the appropriate preoperative orthopedic surgery consent as well as anesthetic consultation, evaluation and clearance, the patient was brought to the operating room and placed on the operating table in supine position. After general endotracheal anesthesia was administered, tourniquet was placed about the proximal aspect of the right upper extremity. Right upper extremity was then prepped and draped in routine sterile fashion. The arm was elevated and exsanguinated. The tourniquet was inflated to 250 mmHg. Elliptical incision was taken through the skin down through the fat and the excision was carried across the fascial plane of the hypothenar eminence. This was taken en bloc and sent for permanent specimen. The wound was then copiously irrigated with bulb syringe and closed with 3-0 Prolene in a mattress style fashion. Sterile dressings were applied. The patient was awakened and taken to the recovery room in stable condition. All final needle and sponge counts were correct. TRANSINT:[id number] Voice Confirmation ID: [id number] DOCUMENT ID: [id number] MERISSA TANNER MD at 1139 CC: [id number] DICTATION DATE: 10/23/162033 SINGEING TORCH OPERATOR: 10/24/16 0235 [facility] [address] [place] [id number]
[2016-10-24 12:10] VITALS: BP 182/82
[2016-10-24] MEDS ORDERED: NEURONTIN 300300 MG PO (13:27)
[2016-10-24] MEDS ORDERED: DILAUDID4 MG PO (13:53)
[2016-10-24] MEDS ORDERED: ZOFRAN ODT4 MG/UDTAB PO (13:53)
--- NOTE | 2016-10-24 17:08 | NUR ---
CM: Patient will discharge home with daughterMinerva and mother. PCP: Dr Holman. Pharmacy: [facility]. HHS: [facility]. Needs assist with medication management, wound management. DME: [employer]. 2 steps going into the home. Independent with ADL's. Emergency Contact: Billie Chao (mother)#[phone]. Additional services required upon discharge: Yes--HHS, PT, CM. Did the patient have prescriptions upon previous discharge? Yes. Did patient pickle sorter prescriptions upon previous discharge? Yes. Can patient safely return to preadmission environment? Yes. Has the patient been hospitalized within the prior 30 days? Yes.
--- NOTE | 2016-10-24 17:22 | NUR ---
DISCHARGE PAPERS AND INSTRUCTIONS GIVEN, QUESTIONS ANSWERED, IV REMOVED TIP INTACT, BANDAGE TO ABDOMEN CHANGED, DISCHARGED PER WC WITH BELONGINGS
== END 2016-10-24 17:40 | disposition home or self-care (01) ==
LOC: D.OPS 13:19 → D.MS 13:19 → D.PAN 15:45 → D.OPS 15:45 → D.MS 15:51 → D.OPS 10-24 17:40
PROVIDERS: Anesthesiology; Orthopaedic Surgery
DX: S61.401A Unspecified open wound of right hand, initial encounter (principal); J45.909 Unspecified asthma, uncomplicated; K21.9 Gastro-esophageal reflux disease without esophagitis; I10 Essential (primary) hypertension; E66.01 Morbid (severe) obesity due to excess calories; Z68.43 Body mass index [BMI] 50.0-59.9, adult; Z01.812 Encounter for preprocedural laboratory examination

== ENCOUNTER 2016-10-27 14:44 | Emergency (ER) | payer MEDICARE ==
[2016-10-23 18:02] VITALS: BMI 58.1
[~2016-10-27 14:44] MED LIST changes: +DILAUDID4 MG PO; +NEURONTIN 300300 MG PO
[2016-10-27 15:51] LABS: BASOPHILS 0.2 % (0-2); EOSINOPHILS 3.9 % (0-7); HEMATOCRIT 37.8 % (36.0-48.0); HEMOGLOBIN 11.7 g/dL (12-16); IMMATURE GRANULOCYTES 0.2 % (0-5); LYMPHOCYTES 21.1 % (15-50); MCH 25.6 pg (26.0-34.0); MCV 82.7 fL (80.0-100.0); MEAN PLATELET VOLUME 11.1 fL (7.4-10.4); MONOCYTES 6.9 % (2-11); NEUTROPHILS 67.7 % (40-80); PLATELET COUNT 200 10x3/uL (130-400); RBC 4.57 10x6/uL (4.00-5.40); RDW 14.1 % (11.5-14.5); WBC 6.5 10x3/uL (4.8-10.8)
[2016-10-27 18:16] LABS: ALBUMIN 3.5 g/dL (3.4-5.0); ALKALINE PHOSPHATASE 114 U/L (46-116); ALT (SGPT) 21 U/L (10-68); AMYLASE - SERUM 27 U/L (25-115); BILIRUBIN - TOTAL 0.35 mg/dL (0.2-1.3); CALC OSMOLALITY 283 mosm/kg (275-300); CALCIUM 9.2 mg/dL (8.5-10.1); CARBON DIOXIDE 33.1 mmol/L (21.0-32.0); CHLORIDE - SERUM 102 mmol/L (98-107); CREATININE - SERUM 0.8 mg/dL (0.6-1.3); GLUCOSE 116 mg/dL (74-106); LIPASE 78 U/L (73-393); POTASSIUM - SERUM 3.6 mmol/L (3.5-5.1); PROTEIN - SERUM 6.9 g/dL (6.4-8.2); SODIUM 142 mmol/L (136-145); UREA NITROGEN 13 mg/dL (7-18); eGFR NON AFRICAN AMERICAN 83 mL/min (90-120)
[2016-10-27 19:51] LABS: APPEARANCE CLEAR (CLEAR); COLOR YELLOW (YELLOW); SPECIFIC GRAVITY 1.015 (1.005-1.020)
[2016-10-27 19:52] LABS: BILIRUBIN NEGATIVE (NEGATIVE); GLUCOSE NEGATIVE (NEGATIVE); KETONE NEGATIVE (NEGATIVE); LEUKOCYTE ESTERASE NEGATIVE (NEGATIVE); NITRITE NEGATIVE (NEGATIVE); PROTEIN NEGATIVE (NEGATIVE); UROBILINOGEN NORMAL (NORMAL)
== END 2016-10-27 22:05 | disposition home or self-care (01) ==
LOC: D.ER 14:44
PROVIDERS: Emergency Medicine; Physician Assistant
DX: G89.18 Other acute postprocedural pain (principal); L76.34 Postprocedural seroma of skin and subcutaneous tissue following other procedure; Z98.890 Other specified postprocedural states; I10 Essential (primary) hypertension; J45.909 Unspecified asthma, uncomplicated

== ENCOUNTER → 2016-11-13 09:48 | Outpatient (CLI) | payer MEDICARE ==
[2016-10-23 18:02] VITALS: BMI 58.1
== END | disposition home or self-care (01) ==
LOC: D.US 09:48
DX: R10.9 Unspecified abdominal pain (principal)

== ENCOUNTER 2016-11-29 01:56 | Emergency (ER) | payer MEDICARE ==
[2016-10-23 18:02] VITALS: BMI 58.1
[2016-11-29 03:01] LABS: APPEARANCE CLEAR (CLEAR); BILIRUBIN NEGATIVE (NEGATIVE); COLOR YELLOW (YELLOW); GLUCOSE NEGATIVE (NEGATIVE); KETONE NEGATIVE (NEGATIVE); LEUKOCYTE ESTERASE NEGATIVE (NEGATIVE); NITRITE NEGATIVE (NEGATIVE); PROTEIN NEGATIVE (NEGATIVE); SPECIFIC GRAVITY 1.025 (1.005-1.020); UROBILINOGEN NORMAL (NORMAL)
[2016-11-29 03:06] LABS: BACTERIA FEW /hpf (NONE SEEN); CALCIUM OXALATE CRYSTALS 25-50 /hpf (NONE SEEN); EPITHELIAL CELLS 0-5 /hpf (0-5); RED CELLS - URINE 0-5 /hpf (0-5); WHITE CELLS - URINE 0-5 /hpf (0-5)
== END 2016-11-29 04:15 | disposition home or self-care (01) ==
LOC: D.ER 01:56
PROVIDERS: Emergency Medicine
DX: T76.21XA Adult sexual abuse, suspected, initial encounter (principal); R10.9 Unspecified abdominal pain; J45.909 Unspecified asthma, uncomplicated; I10 Essential (primary) hypertension

== ENCOUNTER 2016-12-02 05:03 | Emergency (ER) | payer MEDICARE ==
[2016-10-23 18:02] VITALS: BMI 58.1
[2016-12-02 05:50] LABS: APPEARANCE CLEAR (CLEAR); BILIRUBIN NEGATIVE (NEGATIVE); COLOR STRAW (YELLOW); GLUCOSE NEGATIVE (NEGATIVE); KETONE NEGATIVE (NEGATIVE); LEUKOCYTE ESTERASE NEGATIVE (NEGATIVE); NITRITE NEGATIVE (NEGATIVE); PROTEIN NEGATIVE (NEGATIVE); UROBILINOGEN NORMAL (NORMAL)
[2016-12-02 05:53] LABS: RED CELLS - URINE 0-5 /hpf (0-5)
[2016-12-02 05:54] LABS: BACTERIA FEW /hpf (NONE SEEN); EPITHELIAL CELLS 0-5 /hpf (0-5); WHITE CELLS - URINE NSEEN /hpf (0-5)
[2016-12-02 06:26] LABS: BASOPHILS 0.1 % (0-2); EOSINOPHILS 2.6 % (0-7); HEMATOCRIT 37.1 % (36.0-48.0); HEMOGLOBIN 11.7 g/dL (12-16); IMMATURE GRANULOCYTES 0.1 % (0-5); LYMPHOCYTES 20.8 % (15-50); MCH 24.4 pg (26.0-34.0); MCHC 31.5 g/dL (31.0-37.0); MCV 77.5 fL (80.0-100.0); MEAN PLATELET VOLUME 10.6 fL (7.4-10.4); MONOCYTES 7.1 % (2-11); NEUTROPHILS 69.3 % (40-80); PLATELET COUNT 183 10x3/uL (130-400); RBC 4.79 10x6/uL (4.00-5.40); WBC 8.2 10x3/uL (4.8-10.8)
[2016-12-02 06:43] LABS: ALBUMIN 3.4 g/dL (3.4-5.0); ALKALINE PHOSPHATASE 120 U/L (46-116); ALT (SGPT) 12 U/L (10-68); BILIRUBIN - TOTAL 0.21 mg/dL (0.2-1.3); CALC OSMOLALITY 280 mosm/kg (275-300); CALCIUM 9.5 mg/dL (8.5-10.1); CARBON DIOXIDE 26.4 mmol/L (21.0-32.0); CHLORIDE - SERUM 105 mmol/L (98-107); CREATININE - SERUM 0.7 mg/dL (0.6-1.3); GLUCOSE 109 mg/dL (74-106); POTASSIUM - SERUM 3.9 mmol/L (3.5-5.1); PROTEIN - SERUM 7.2 g/dL (6.4-8.2); SODIUM 140 mmol/L (136-145); UREA NITROGEN 14 mg/dL (7-18); eGFR NON AFRICAN AMERICAN > 90 mL/min (90-120)
== END 2016-12-02 07:05 | disposition home or self-care (01) ==
LOC: D.ER 05:03
PROVIDERS: Emergency Medicine
DX: R10.9 Unspecified abdominal pain (principal); I10 Essential (primary) hypertension

== ENCOUNTER 2017-02-12 22:48 | Emergency (ER) | payer MEDICARE ==
[2016-10-23 18:02] VITALS: BMI 58.1
[2017-02-12 23:22] LABS: BASOPHILS 0 % (0-2); EOSINOPHILS 2.6 % (0-7); HEMATOCRIT 36.7 % (36.0-48.0); HEMOGLOBIN 11.9 g/dL (12-16); IMMATURE GRANULOCYTES 0.4 % (0-5); LYMPHOCYTES 20.7 % (15-50); MCH 25.3 pg (26.0-34.0); MCHC 32.4 g/dL (31.0-37.0); MCV 78.1 fL (80.0-100.0); MEAN PLATELET VOLUME 10.9 fL (7.4-10.4); MONOCYTES 5.5 % (2-11); NEUTROPHILS 70.8 % (40-80); PLATELET COUNT 163 10x3/uL (130-400); RDW 15.1 % (11.5-14.5); WBC 7.7 10x3/uL (4.8-10.8)
[2017-02-12 23:37] LABS: ALBUMIN 3.3 g/dL (3.4-5.0); ALKALINE PHOSPHATASE 113 U/L (46-116); ALT (SGPT) 28 U/L (10-68); CALC OSMOLALITY 281 mosm/kg (275-300); CHLORIDE - SERUM 104 mmol/L (98-107); CREATININE - SERUM 0.7 mg/dL (0.6-1.3); GLUCOSE 160 mg/dL (74-106); POTASSIUM - SERUM 3.4 mmol/L (3.5-5.1); SODIUM 140 mmol/L (136-145); UREA NITROGEN 12 mg/dL (7-18); eGFR NON AFRICAN AMERICAN > 90 mL/min (90-120)
[2017-02-13 00:51] LABS: APPEARANCE HAZY (CLEAR); BILIRUBIN NEGATIVE (NEGATIVE); COLOR YELLOW (YELLOW); GLUCOSE NEGATIVE (NEGATIVE); KETONE NEGATIVE (NEGATIVE); LEUKOCYTE ESTERASE NEGATIVE (NEGATIVE); NITRITE NEGATIVE (NEGATIVE); PROTEIN NEGATIVE (NEGATIVE); UROBILINOGEN NORMAL (NORMAL)
[2017-02-13 01:07] LABS: UDS - AMPHET NEGATIVE QUAL (NEGATIVE); UDS - BARB NEGATIVE QUAL (NEGATIVE); UDS - BENZO NEGATIVE QUAL (NEGATIVE); UDS - COCAINE NEGATIVE QUAL (NEGATIVE); UDS - METH NEGATIVE QUAL (NEGATIVE); UDS - OPIATE POSITIVE QUAL (NEGATIVE); UDS - PCP NEGATIVE QUAL (NEGATIVE); UDS - THC NEGATIVE QUAL (NEGATIVE)
== END 2017-02-13 02:00 | disposition home or self-care (01) ==
LOC: D.ER 22:48
PROVIDERS: Emergency Medicine
DX: R55 Syncope and collapse (principal); S31.119A Laceration without foreign body of abdominal wall, unspecified quadrant without penetration into peritoneal cavity, initial encounter; W19.XXXA Unspecified fall, initial encounter

== ENCOUNTER 2017-05-27 06:34 | Emergency (ER) | payer MEDICARE ==
[2016-10-23 18:02] VITALS: BMI 58.1
== END 2017-05-27 08:00 | disposition home or self-care (01) ==
LOC: D.ER 06:34
DX: S39.012A Strain of muscle, fascia and tendon of lower back, initial encounter (principal); W19.XXXA Unspecified fall, initial encounter; Y93.89 Activity, other specified; Y92.019 Unspecified place in single-family (private) house as the place of occurrence of the external cause; S16.1XXA Strain of muscle, fascia and tendon at neck level, initial encounter; M54.5 Low back pain; I10 Essential (primary) hypertension

== ENCOUNTER → 2017-06-04 09:04 | Outpatient (CLI) | payer MEDICARE ==
[2016-10-23 18:02] VITALS: BMI 58.1
== END | disposition home or self-care (01) ==
LOC: D.CT 09:04
DX: R51 Headache (principal)

== ENCOUNTER 2017-09-22 02:35 | Emergency (ER) | payer MEDICARE ==
[2016-10-23 18:02] VITALS: BMI 58.1
[2017-09-22 02:59] LABS: BASOPHILS 0.1 % (0-2); EOSINOPHILS 1.7 % (0-7); HEMATOCRIT 40.1 % (36.0-48.0); HEMOGLOBIN 13.2 g/dL (12-16); IMMATURE GRANULOCYTES 0.4 % (0-5); MCH 27.3 pg (26.0-34.0); MCHC 32.9 g/dL (31.0-37.0); MCV 82.9 fL (80.0-100.0); MEAN PLATELET VOLUME 10.7 fL (7.4-10.4); NEUTROPHILS 71.8 % (40-80); PLATELET COUNT 171 10x3/uL (130-400); RBC 4.84 10x6/uL (4.00-5.40); RDW 13.2 % (11.5-14.5); WBC 9.9 10x3/uL (4.8-10.8)
[2017-09-22 03:13] LABS: ALBUMIN 3.4 g/dL (3.4-5.0); ALKALINE PHOSPHATASE 108 U/L (46-116); ALT (SGPT) 28 U/L (10-68); BILIRUBIN - TOTAL 0.25 mg/dL (0.2-1.3); CALC OSMOLALITY 282 mosm/kg (275-300); CALCIUM 8.6 mg/dL (8.5-10.1); CHLORIDE - SERUM 105 mmol/L (98-107); CREATININE - SERUM 0.8 mg/dL (0.6-1.3); GLUCOSE 131 mg/dL (74-106); POTASSIUM - SERUM 3.7 mmol/L (3.5-5.1); PROTEIN - SERUM 7.3 g/dL (6.4-8.2); SODIUM 141 mmol/L (136-145); UREA NITROGEN 12 mg/dL (7-18); eGFR NON AFRICAN AMERICAN 83 mL/min (90-120)
[2017-09-22 03:17] LABS: CREATINE KINASE 48 UL (21-215); LIPASE 96 U/L (73-393); TROPONIN-I < 0.017 ng/mL (0.000-0.060)
[2017-09-22 03:35] LABS: APPEARANCE CLEAR (CLEAR); COLOR YELLOW (YELLOW); SPECIFIC GRAVITY 1.015 (1.005-1.020)
[2017-09-22 03:36] LABS: BILIRUBIN NEGATIVE (NEGATIVE); GLUCOSE NEGATIVE (NEGATIVE); KETONE NEGATIVE (NEGATIVE); NITRITE NEGATIVE (NEGATIVE); PROTEIN NEGATIVE (NEGATIVE); UDS - AMPHET NEGATIVE QUAL (NEGATIVE); UDS - BARB NEGATIVE QUAL (NEGATIVE); UDS - BENZO NEGATIVE QUAL (NEGATIVE); UDS - COCAINE NEGATIVE QUAL (NEGATIVE); UDS - OPIATE NEGATIVE QUAL (NEGATIVE); UDS - PCP NEGATIVE QUAL (NEGATIVE); UDS - THC NEGATIVE QUAL (NEGATIVE); UROBILINOGEN NORMAL (NORMAL)
[2017-09-22 03:37] LABS: BACTERIA NONE SEEN /hpf (NONE SEEN); EPITHELIAL CELLS 0-5 /hpf (0-5); RED CELLS - URINE 0-5 /hpf (0-5); WHITE CELLS - URINE 0-5 /hpf (0-5)
== END 2017-09-22 03:55 | disposition home or self-care (01) ==
LOC: D.ER 02:35
PROVIDERS: Family Medicine
DX: R10.9 Unspecified abdominal pain (principal); I10 Essential (primary) hypertension; R00.0 Tachycardia, unspecified

== ENCOUNTER 2017-10-17 06:48 | Emergency (ER) | payer MEDICARE ==
[2016-10-23 18:02] VITALS: BMI 58.1
[2017-10-17 07:24] LABS: BASOPHILS 0.2 % (0-2); EOSINOPHILS 2.1 % (0-7); HEMATOCRIT 40.9 % (36.0-48.0); HEMOGLOBIN 13.6 g/dL (12-16); IMMATURE GRANULOCYTES 0.3 % (0-5); LYMPHOCYTES 18.7 % (15-50); MCH 27.3 pg (26.0-34.0); MCHC 33.3 g/dL (31.0-37.0); MEAN PLATELET VOLUME 10.8 fL (7.4-10.4); MONOCYTES 6.8 % (2-11); NEUTROPHILS 71.9 % (40-80); PLATELET COUNT 179 10x3/uL (130-400); RBC 4.99 10x6/uL (4.00-5.40); RDW 13.4 % (11.5-14.5); WBC 8.8 10x3/uL (4.8-10.8)
[2017-10-17 07:46] LABS: ALBUMIN 3.5 g/dL (3.4-5.0); ALKALINE PHOSPHATASE 118 U/L (46-116); ALT (SGPT) 30 U/L (10-68); BILIRUBIN - TOTAL 0.39 mg/dL (0.2-1.3); CALC OSMOLALITY 279 mosm/kg (275-300); CALCIUM 8.8 mg/dL (8.5-10.1); CARBON DIOXIDE 26.2 mmol/L (21.0-32.0); CHLORIDE - SERUM 102 mmol/L (98-107); CREATININE - SERUM 0.8 mg/dL (0.6-1.3); GLUCOSE 159 mg/dL (74-106); POTASSIUM - SERUM 3.5 mmol/L (3.5-5.1); PROTEIN - SERUM 7.6 g/dL (6.4-8.2); SODIUM 139 mmol/L (136-145); UREA NITROGEN 11 mg/dL (7-18); eGFR NON AFRICAN AMERICAN 83 mL/min (90-120)
[2017-10-17 07:56] LABS: CREATINE KINASE 72 UL (21-215); MAGNESIUM - SERUM 1.9 mg/dL (1.8-2.4); THYROID STIMULATING HORMONE 2.92 uIU/mL (0.36-3.74)
== END 2017-10-17 08:29 | disposition home or self-care (01) ==
LOC: D.ER 06:48
PROVIDERS: Emergency Medicine
DX: M79.605 Pain in left leg (principal); M79.604 Pain in right leg; R25.2 Cramp and spasm

== ENCOUNTER 2017-11-23 21:06 | Emergency (ER) | payer MEDICARE ==
[~2017-11-23] VITALS: Ht 165.1 cm; Wt 159.1 kg
[2017-11-23 21:14] VITALS: Ht 165.1 cm; Wt 159.1 kg
[2017-11-23] MEDS ORDERED: DEPAKOTE500 MG (21:17)
[2017-11-23] MEDS ORDERED: TOPAMAX100 MG (21:18)
[2017-11-23 22:56] LABS: BASOPHILS 0.1 % (0-2); EOSINOPHILS 1.3 % (0-7); HEMATOCRIT 42.7 % (36.0-48.0); HEMOGLOBIN 14.5 g/dL (12-16); IMMATURE GRANULOCYTES 0.5 % (0-5); LYMPHOCYTES 21.4 % (15-50); MCH 27.8 pg (26.0-34.0); MCV 81.8 fL (80.0-100.0); MEAN PLATELET VOLUME 10.8 fL (7.4-10.4); MONOCYTES 7.6 % (2-11); NEUTROPHILS 69.1 % (40-80); PLATELET COUNT 193 10x3/uL (130-400); RBC 5.22 10x6/uL (4.00-5.40); RDW 13.6 % (11.5-14.5); WBC 10.8 10x3/uL (4.8-10.8)
[2017-11-23 23:13] LABS: ALBUMIN 3.7 g/dL (3.4-5.0); ANION GAP 13.1 mmol/L (8-16); BILIRUBIN - TOTAL 0.34 mg/dL (0.2-1.3); CALCIUM 10.1 mg/dL (8.5-10.1); CARBON DIOXIDE 25.3 mmol/L (21.0-32.0); CREATININE - SERUM 0.9 mg/dL (0.6-1.3); POTASSIUM - SERUM 3.4 mmol/L (3.5-5.1); PROTEIN - SERUM 7.9 g/dL (6.4-8.2)
[2017-11-24 00:08] LABS: APPEARANCE CLEAR (CLEAR); BILIRUBIN NEGATIVE (NEGATIVE); COLOR YELLOW (YELLOW); GLUCOSE NEGATIVE (NEGATIVE); KETONE SMALL mg/dL (NEGATIVE); NITRITE NEGATIVE (NEGATIVE); PROTEIN 1+ mg/dL (NEGATIVE); UROBILINOGEN NORMAL (NORMAL)
[2017-11-24 00:10] LABS: BACTERIA FEW /hpf (NONE SEEN); EPITHELIAL CELLS 0-5 /hpf (0-5); RED CELLS - URINE 0-5 /hpf (0-5); WHITE CELLS - URINE 0-5 /hpf (0-5)
[2017-11-24 01:59] VITALS: BP 156/94
[2017-11-25] MEDS ORDERED: CHRONULAC30 ML PO (14:48)
== END 2017-11-24 02:08 | disposition home or self-care (01) ==
LOC: D.ER 21:06
PROVIDERS: Family Medicine
DX: R10.9 Unspecified abdominal pain (principal); V49.9XXA Car occupant (driver) (passenger) injured in unspecified traffic accident, initial encounter; Y93.89 Activity, other specified; Y92.410 Unspecified street and highway as the place of occurrence of the external cause

== ENCOUNTER 2017-11-25 11:21 | Emergency (ER) | payer MEDICARE ==
[~2017-11-25] VITALS: Ht 165.1 cm; Wt 159.1 kg
[~2017-11-25 11:21] MED LIST changes: +DEPAKOTE500 MG; +TOPAMAX100 MG
[2017-11-25 11:30] VITALS: Ht 165.1 cm; Wt 159.1 kg
[2017-11-25 12:14] LABS: BASOPHILS 0 % (0-2); EOSINOPHILS 1.9 % (0-7); HEMATOCRIT 41.1 % (36.0-48.0); HEMOGLOBIN 13.5 g/dL (12-16); IMMATURE GRANULOCYTES 0.4 % (0-5); LYMPHOCYTES 20.6 % (15-50); MCH 27.4 pg (26.0-34.0); MCHC 32.8 g/dL (31.0-37.0); MCV 83.5 fL (80.0-100.0); MEAN PLATELET VOLUME 10.7 fL (7.4-10.4); MONOCYTES 9.1 % (2-11); PLATELET COUNT 154 10x3/uL (130-400); RBC 4.92 10x6/uL (4.00-5.40); RDW 13.7 % (11.5-14.5); WBC 8.3 10x3/uL (4.8-10.8)
[2017-11-25 12:31] LABS: ALBUMIN 3.4 g/dL (3.4-5.0); ALKALINE PHOSPHATASE 99 U/L (46-116); ALT (SGPT) 31 U/L (10-68); BILIRUBIN - TOTAL 0.18 mg/dL (0.2-1.3); CALC OSMOLALITY 282 mosm/kg (275-300); CALCIUM 9.8 mg/dL (8.5-10.1); CARBON DIOXIDE 25.9 mmol/L (21.0-32.0); CHLORIDE - SERUM 105 mmol/L (98-107); CREATININE - SERUM 0.8 mg/dL (0.6-1.3); GLUCOSE 131 mg/dL (74-106); POTASSIUM - SERUM 3.9 mmol/L (3.5-5.1); PROTEIN - SERUM 7.2 g/dL (6.4-8.2); SODIUM 139 mmol/L (136-145); UREA NITROGEN 22 mg/dL (7-18); eGFR NON AFRICAN AMERICAN 83 mL/min (90-120)
[2017-11-25 12:32] LABS: APPEARANCE HAZY (CLEAR); COLOR YELLOW (YELLOW); NITRITE NEGATIVE (NEGATIVE); PROTEIN NEGATIVE (NEGATIVE); SPECIFIC GRAVITY 1.015 (1.005-1.020)
[2017-11-25 12:33] LABS: BILIRUBIN NEGATIVE (NEGATIVE); GLUCOSE NEGATIVE (NEGATIVE); KETONE SMALL mg/dL (NEGATIVE); UROBILINOGEN NORMAL (NORMAL)
[2017-11-25 12:37] LABS: AMYLASE - SERUM 36 U/L (25-115); HCG - QUANTITATIVE (MATERNAL) 1 mIU/mL; LIPASE 151 U/L (73-393)
[2017-11-25 13:23] LABS: HCG SERUM NEGATIVE (NEGATIVE)
[2017-11-25] MEDS ORDERED: CHRONULAC30 ML PO (14:48)
[2017-11-25 15:29] VITALS: BP 145/92
[2017-11-26] MEDS ORDERED: TOPAMAX50 MG PO (17:54)
[2017-11-26] MEDS ORDERED: DEPAKOTE250 MG PO (17:56)
[2017-11-26] MEDS ORDERED: BACLOFEN10 MG PO (18:01)
== END 2017-11-25 15:19 | disposition home or self-care (01) ==
LOC: D.ER 11:21
PROVIDERS: Family Medicine
DX: R10.32 Left lower quadrant pain (principal); R11.2 Nausea with vomiting, unspecified; K59.00 Constipation, unspecified

== ENCOUNTER 2017-11-26 05:53 | Observation (INO) | payer MEDICARE ==
[~2017-11-26] VITALS: Ht 165.1 cm; Wt 161.5 kg
[~2017-11-26 05:53] MED LIST changes: +CHRONULAC30 ML PO
[2017-11-26 06:51] LABS: BASOPHILS 0.1 % (0-2); EOSINOPHILS 2.4 % (0-7); HEMATOCRIT 40.4 % (36.0-48.0); HEMOGLOBIN 13.2 g/dL (12-16); IMMATURE GRANULOCYTES 0.6 % (0-5); LYMPHOCYTES 26.5 % (15-50); MCH 27.5 pg (26.0-34.0); MCHC 32.7 g/dL (31.0-37.0); MCV 84.2 fL (80.0-100.0); MEAN PLATELET VOLUME 10.7 fL (7.4-10.4); MONOCYTES 9.5 % (2-11); NEUTROPHILS 60.9 % (40-80); PLATELET COUNT 168 10x3/uL (130-400); RDW 13.8 % (11.5-14.5); WBC 7.8 10x3/uL (4.8-10.8)
[2017-11-26 07:00] VITALS: BP 142/83
[2017-11-26 07:15] LABS: ALBUMIN 3.4 g/dL (3.4-5.0); ANION GAP 10.7 mmol/L (8-16); BILIRUBIN - TOTAL 0.21 mg/dL (0.2-1.3); CALCIUM 9.7 mg/dL (8.5-10.1); CARBON DIOXIDE 29.9 mmol/L (21.0-32.0); CREATININE - SERUM 0.9 mg/dL (0.6-1.3); POTASSIUM - SERUM 3.6 mmol/L (3.5-5.1); PROTEIN - SERUM 7.1 g/dL (6.4-8.2)
[2017-11-26 07:32] LABS: APPEARANCE HAZY (CLEAR); COLOR YELLOW (YELLOW)
[2017-11-26 07:33] LABS: AMORPHOUS SEDIMENT <1+ /lpf (NONE SEEN); BACTERIA MODERATE /hpf (NONE SEEN); BILIRUBIN NEGATIVE (NEGATIVE); GLUCOSE NEGATIVE (NEGATIVE); GRANULAR CAST RARE /lpf (NONE SEEN); HYALINE CAST RARE /lpf (NONE SEEN); KETONE SMALL mg/dL (NEGATIVE); MUCUS <1+ /lpf (NONE SEEN); NITRITE NEGATIVE (NEGATIVE); PROTEIN NEGATIVE (NEGATIVE); RED CELLS - URINE 0-5 /hpf (0-5); UROBILINOGEN NORMAL (NORMAL); WHITE CELLS - URINE 0-5 /hpf (0-5)
[2017-11-26 09:00] VITALS: BP 123/84
[2017-11-26 11:00] VITALS: BP 149/83
[2017-11-26] MEDS ORDERED: TOPAMAX50 MG PO (17:54)
[2017-11-26] MEDS ORDERED: DEPAKOTE250 MG PO (17:56)
[2017-11-26] MEDS ORDERED: BACLOFEN10 MG PO (18:01)
[2017-11-26 18:05] VITALS: BP 112/73
[2017-11-26 21:20] VITALS: BP 151/84
[2017-11-27 00:38] VITALS: BP 165/93
[2017-11-27 05:57] LABS: BASOPHILS 0.1 % (0-2); EOSINOPHILS 2.5 % (0-7); HEMATOCRIT 40.5 % (36.0-48.0); IMMATURE GRANULOCYTES 0.4 % (0-5); LYMPHOCYTES 23.2 % (15-50); MCH 27.1 pg (26.0-34.0); MCHC 32.1 g/dL (31.0-37.0); MCV 84.6 fL (80.0-100.0); MEAN PLATELET VOLUME 10.6 fL (7.4-10.4); NEUTROPHILS 64.8 % (40-80); PLATELET COUNT 161 10x3/uL (130-400); RBC 4.79 10x6/uL (4.00-5.40); WBC 7.9 10x3/uL (4.8-10.8)
[2017-11-27 06:15] LABS: ALBUMIN 3.4 g/dL (3.4-5.0); ALKALINE PHOSPHATASE 93 U/L (46-116); ALT (SGPT) 30 U/L (10-68); CALC OSMOLALITY 285 mosm/kg (275-300); CARBON DIOXIDE 25.6 mmol/L (21.0-32.0); CHLORIDE - SERUM 108 mmol/L (98-107); CREATININE - SERUM 0.8 mg/dL (0.6-1.3); GLUCOSE 93 mg/dL (74-106); POTASSIUM - SERUM 3.9 mmol/L (3.5-5.1); PROTEIN - SERUM 6.9 g/dL (6.4-8.2); SODIUM 143 mmol/L (136-145); UREA NITROGEN 16 mg/dL (7-18); eGFR NON AFRICAN AMERICAN 83 mL/min (90-120)
[2017-11-27 06:37] LABS: APTT 24.2 SECONDS (22.8-39.4); INR 1.07 (0.85-1.17); PROTIME 13.5 SECONDS (11.6-15.0)
[2017-11-27 08:43] VITALS: BP 179/98
[2017-11-27 13:00] VITALS: BP 142/82
[2017-11-27 14:56] VITALS: Ht 165.1 cm; Wt 161.5 kg
[2017-11-27 20:00] VITALS: BP 150/92
[2017-11-28] VITALS: BP 162/90
[2017-11-28 04:00] VITALS: BP 173/80
[2017-11-28 06:44] LABS: BASOPHILS 0 % (0-2); HEMATOCRIT 39.9 % (36.0-48.0); HEMOGLOBIN 12.8 g/dL (12-16); IMMATURE GRANULOCYTES 0.3 % (0-5); LYMPHOCYTES 22.9 % (15-50); MCH 27.5 pg (26.0-34.0); MCHC 32.1 g/dL (31.0-37.0); MCV 85.6 fL (80.0-100.0); MEAN PLATELET VOLUME 10.9 fL (7.4-10.4); MONOCYTES 9.6 % (2-11); NEUTROPHILS 65.2 % (40-80); PLATELET COUNT 152 10x3/uL (130-400); RBC 4.66 10x6/uL (4.00-5.40); WBC 7.6 10x3/uL (4.8-10.8)
[2017-11-28 06:45] LABS: ALBUMIN 3.2 g/dL (3.4-5.0); ALKALINE PHOSPHATASE 90 U/L (46-116); ALT (SGPT) 25 U/L (10-68); BILIRUBIN - TOTAL 0.47 mg/dL (0.2-1.3); CARBON DIOXIDE 27.6 mmol/L (21.0-32.0); CHLORIDE - SERUM 106 mmol/L (98-107); CREATININE - SERUM 0.7 mg/dL (0.6-1.3); GLUCOSE 98 mg/dL (74-106); PROTEIN - SERUM 6.8 g/dL (6.4-8.2); SODIUM 142 mmol/L (136-145); eGFR NON AFRICAN AMERICAN > 90 mL/min (90-120)
[2017-11-28 06:46] LABS: CALC OSMOLALITY 281 mosm/kg (275-300); UREA NITROGEN 10 mg/dL (7-18)
[2017-11-28 10:15] VITALS: BP 173/87
[2017-11-28 12:17] VITALS: BP 162/88
[2017-11-28] MEDS ORDERED: LEVAQUIN500 MG PO (13:17)
== END 2017-11-28 17:45 | disposition home health service (06) ==
LOC: D.ER 05:53 → OBSVTIME 12:34 → D.EDHOLD 12:34 → D.MS 12:34
PROVIDERS: Emergency Medicine; Family Medicine; Internal Medicine Nephrology
DX: N39.0 Urinary tract infection, site not specified (principal); R11.2 Nausea with vomiting, unspecified; E66.01 Morbid (severe) obesity due to excess calories; I10 Essential (primary) hypertension; J44.9 Chronic obstructive pulmonary disease, unspecified; K43.9 Ventral hernia without obstruction or gangrene; G62.9 Polyneuropathy, unspecified

== ENCOUNTER 2018-01-17 03:13 | Inpatient (IN) | payer MEDICARE ==
[~2018-01-17] VITALS: Ht 165.1 cm; Wt 158.3 kg
[2018-01-17] VITALS (7 sets, daily range): BP systolic 124–162; BP diastolic 83–96; BMI 58.3
--- NOTE | ~2018-01-17 | MORECARE ---
CASE MANAGEMENT DISCHARGE SUMMARY PATIENT: AYAKA HEDRICK UNIT: [id number] ADM DATE: 01/17/18 AGE: 42 : 73 SEX: F ROOM/BED: D.2240 AUTHOR: CASE, SLUBBER HAND PHYSICIAN: REFERRING PHYSICIAN: KRIS GOODSON MD DATE OF SERVICE: 01/17/18 Discharge Plan Patient Name: AYAKA HEDRICK Facility: [facility]:[place] : 1975 Planned Disposition: Home with Home Health Anticipated Discharge Date: Discharge Date: Expected LOS: Initial Reviewer: [email or web address] Initial Review Date: 01/22/2018 Generated: 01/22/18 5:09 pm Comments DCP- Discharge Planning Updated by [email or web address]: Tati Hale on 01/22/18 12:[address] ORDER RECEIVED FOR A HOME WOUND VAC, CLINICAL SENT TO [facility]. DCPIA - Discharge Planning Initial Assessment Updated by [email or web address]: Tati Hlae on 01/22/18 4:07 pm * Is the patient Alert and Oriented? Yes * How many steps to enterexit or inside your home? * PCP DELICIA * [facility] * Preadmission Environment Home with Family * ADLs Independent * Equipment None * List name and contact numbers for known caregivers / representatives who currently or will assist patient after discharge: MELA GAUTHIER (SISTER) [phone] * Verbal permission to speak to the caregivers and representatives has been obtained from the patient. N/A * Community resources currently utilized None * Additional services required to return to the preadmission environment? Yes * Can the patient safely return to the preadmission environment? Yes * Has this patient been hospitalized within the prior 30 days at any hospital? No External Providers [facility] Next Contact Date: Service Request Date: Service Type: Resolution: Reviewer: Comments: External Provider: [facility] Next Contact Date: Service Request Date: Service Type: Resolution: Reviewer: Comments: Coverage Notice Reviewer: [email or web address] - Tati Hale Notice Issued Date-Time: 01/22/2018 14:30 Notice Type: IM Discharge Notice Notice Delivered To: Patient Relationship to Patient: Assembler Filters Name: Delivery Method: HAND - Hand Delivered Gillian Days: Prior Verbal Notification: Recipient Understood Notice: Yes Recipient Signature: Yes Med Rec Note Co-signed by Attending: Coverage Notice Comment: Patient Name: AYAKA HEDRICK Page [phone] All edits/amendments must be made on the electronic document DICTATION DATE: 01/22/181607 FORENSIC PATHOLOGIST: 01/22/181607 RPT#: [id number] DC DATE: STATUS: ADM IN [facility] [address] [place] [address] END OF REPORT
--- NOTE | ~2018-01-17 | OP ---
PATIENT NAME: AYAKA HEDRICK MEDICAL RECORD: [id number] :73 LOCATION:D.MS Agustin2240 ADMISSION DATE:01/17/18 SURGEON: SADIQ GOODSON MD DATE OF OPERATION: 01/20/2018 PREOPERATIVE DIAGNOSIS: Ulcerated abdominal wall. POSTOPERATIVE DIAGNOSIS: Ulcerated abdominal wall with abscess of the abdominal wall. PROCEDURE: Wide excisional debridement of the abdominal wall. SURGEON: Sadiq Goodson MD PULP PLANT SUPERVISOR: None. BLOOD LOSS: Please see the anesthesia sheet. The dimensions of the debridement, including margins, measured 15 cm x 5 cm x 2.4 cm including skin and subcutaneous tissue as well as ulcerated area in the abdominal wall and a necrotic tract that appeared to be infected. The risks, possible complications, and alternatives to the procedure were explained to the patient. She elects to proceed. OPERATIVE COURSE: The patient was conveyed to the operating room electively on 01/20/2018. General anesthesia was induced by the anesthesia staff. The abdomen was sterilely prepped and draped. Through the use of double curvilinear incisions, I excised skin and subcutaneous tissue as well as granulation tissue and an ulcerated area. This was done with a scalpel. Additional sharp debridement was necessary, particularly to the left laterally along what appeared to be a granulation tunnel that appeared to be infected. Some suture material was identified and was excised in a piecemeal fashion. The excised dimensions are listed above. Meticulous hemostasis was achieved with electrocautery. Cultures were obtained of the ulcerated area. The wound was then packed with saline wet-to-dry dressing. The patient was then extubated and conveyed to postanesthesia care unit, where she was in stable condition. TRANSINT:[id number] Voice Confirmation ID: [id number] DOCUMENT ID: [id number] SADIQ GOODSON MD at 1042 CC: [id number] DICTATION DATE: 02/23/18 1421 SPRING INTERN: 02/23/18 1441 DIS IN 01/22/18 [place] [id number]
[~2018-01-17 03:13] MED LIST changes: +BACLOFEN10 MG PO; +DEPAKOTE250 MG PO; +LEVAQUIN500 MG PO
[2018-01-17 04:18] LABS: BASOPHILS 0.1 % (0-2); EOSINOPHILS 1.3 % (0-7); HEMATOCRIT 39.8 % (36.0-48.0); HEMOGLOBIN 13.1 g/dL (12-16); IMMATURE GRANULOCYTES 0.4 % (0-5); LYMPHOCYTES 19.6 % (15-50); MCH 27.7 pg (26.0-34.0); MCHC 32.9 g/dL (31.0-37.0); MCV 84.1 fL (80.0-100.0); MEAN PLATELET VOLUME 10.7 fL (7.4-10.4); MONOCYTES 8.9 % (2-11); NEUTROPHILS 69.7 % (40-80); PLATELET COUNT 165 10x3/uL (130-400); RBC 4.73 10x6/uL (4.00-5.40); RDW 13.7 % (11.5-14.5); WBC 8.4 10x3/uL (4.8-10.8)
[2018-01-17 04:38] LABS: ALBUMIN 3.4 g/dL (3.4-5.0); ALKALINE PHOSPHATASE 109 U/L (46-116); ALT (SGPT) 24 U/L (10-68); BILIRUBIN - TOTAL 0.46 mg/dL (0.2-1.3); CALC OSMOLALITY 280 mosm/kg (275-300); CALCIUM 8.9 mg/dL (8.5-10.1); CARBON DIOXIDE 27.3 mmol/L (21.0-32.0); CHLORIDE - SERUM 106 mmol/L (98-107); CREATININE - SERUM 0.7 mg/dL (0.6-1.3); GLUCOSE 106 mg/dL (74-106); POTASSIUM - SERUM 3.9 mmol/L (3.5-5.1); PROTEIN - SERUM 7.1 g/dL (6.4-8.2); SODIUM 140 mmol/L (136-145); UREA NITROGEN 17 mg/dL (7-18); eGFR NON AFRICAN AMERICAN > 90 mL/min (90-120)
[2018-01-17] MEDS ORDERED: DEPAKOTE500 MG PO (17:44)
[2018-01-17] MEDS ORDERED: ZANAFLEX4 MG PO (17:47)
[2018-01-18 04:08] VITALS: BP 192/95
[2018-01-18 08:48] VITALS: BP 151/89
[2018-01-18 12:58] VITALS: BP 137/86
[2018-01-18 15:22] VITALS: Ht 165.1 cm; Wt 158.3 kg
[2018-01-18 16:27] VITALS: BP 141/80
[2018-01-18 21:32] VITALS: BP 121/79
[2018-01-19 04:13] VITALS: BP 134/84
[2018-01-19 09:28] VITALS: BP 177/99
[2018-01-19 16:50] VITALS: BP 109/88
[2018-01-19 21:19] VITALS: BP 156/85
[2018-01-20] VITALS: BP 113/75
[2018-01-20 04:57] VITALS: BP 81/69
[2018-01-20 08:16] VITALS: BP 154/83
[2018-01-20 11:40] VITALS: BP 134/88
[2018-01-20 20:00] VITALS: BP 133/75
[2018-01-20 23:47] VITALS: BP 131/76
[2018-01-21 04:00] VITALS: BP 114/84
[2018-01-21 07:32] LABS: BASOPHILS 0.1 % (0-2); EOSINOPHILS 2.5 % (0-7); HEMATOCRIT 34.3 % (36.0-48.0); HEMOGLOBIN 10.8 g/dL (12-16); IMMATURE GRANULOCYTES 0.3 % (0-5); LYMPHOCYTES 11.5 % (15-50); MCH 27.8 pg (26.0-34.0); MCHC 31.5 g/dL (31.0-37.0); MCV 88.4 fL (80.0-100.0); MEAN PLATELET VOLUME 10.7 fL (7.4-10.4); MONOCYTES 9.6 % (2-11); PLATELET COUNT 194 10x3/uL (130-400); RBC 3.88 10x6/uL (4.00-5.40); RDW 14.3 % (11.5-14.5); WBC 12.4 10x3/uL (4.8-10.8)
[2018-01-21 09:00] VITALS: BP 104/73
[2018-01-21 12:17] VITALS: BP 126/75
[2018-01-21 16:26] VITALS: BP 111/48
[2018-01-21 19:34] VITALS: BP 104/62
[2018-01-21 23:25] VITALS: BP 120/63
[2018-01-22 04:31] VITALS: BP 129/61
[2018-01-22 08:03] VITALS: BP 130/60
[2018-01-22] MEDS ORDERED: MEPERIDINE HCL50 MG PO (12:35)
[2018-01-22] MEDS ORDERED: DOXYCYCLINE HY100 M2 PO (12:35)
== END 2018-01-22 19:13 | disposition home health service (06) | DRG 571 ==
LOC: D.ER 03:13 → D.MS 08:37 → D.EDHOLD 08:37 → D.MS 17:24
PROVIDERS: Family Medicine; Surgery
PROC: 05HC33Z Insertion of Infusion Device into Left Basilic Vein, Percutaneous Approach (ICD-10-PCS; principal; 2018-01-18)
PROC: B54NZZA Ultrasonography of Left Upper Extremity Veins, Guidance (ICD-10-PCS; 2018-01-18)
PROC: 0JB80ZZ Excision of Abdomen Subcutaneous Tissue and Fascia, Open Approach (ICD-10-PCS; 2018-01-20)
PROC: 05HB33Z Insertion of Infusion Device into Right Basilic Vein, Percutaneous Approach (ICD-10-PCS; 2018-01-21)
PROC: B54MZZA Ultrasonography of Right Upper Extremity Veins, Guidance (ICD-10-PCS; 2018-01-21)
DX: L02.211 Cutaneous abscess of abdominal wall (principal); Z68.44 Body mass index [BMI] 60.0-69.9, adult; W19.XXXA Unspecified fall, initial encounter; E66.9 Obesity, unspecified; Z87.891 Personal history of nicotine dependence; G62.9 Polyneuropathy, unspecified; F11.10 Opioid abuse, uncomplicated

== ENCOUNTER → 2018-01-29 12:31 | Outpatient (CLI) | payer MEDICARE ==
[2018-01-18 15:22] VITALS: BMI 58.0
[~2018-01-29 12:31] MED LIST changes: +DEMEROL100 MG PO; +DEPAKOTE500 MG PO; +DOXYCYCLINE HY100 M2 PO; +LEVAQUIN250 MG PO; +ULTRAM50 MG PO; +ZANAFLEX4 MG PO
[2018-01-29 12:42] LABS: BASOPHILS 0.1 % (0-2); EOSINOPHILS 2.8 % (0-7); HEMATOCRIT 30.8 % (36.0-48.0); HEMOGLOBIN 9.6 g/dL (12-16); IMMATURE GRANULOCYTES 0.1 % (0-5); LYMPHOCYTES 15.9 % (15-50); MCHC 31.2 g/dL (31.0-37.0); MCV 86.8 fL (80.0-100.0); MEAN PLATELET VOLUME 10.8 fL (7.4-10.4); MONOCYTES 9.3 % (2-11); NEUTROPHILS 71.8 % (40-80); PLATELET COUNT 176 10x3/uL (130-400); RBC 3.55 10x6/uL (4.00-5.40); RDW 14.7 % (11.5-14.5); WBC 8.8 10x3/uL (4.8-10.8)
[2018-01-29 13:10] LABS: CALC OSMOLALITY 279 mosm/kg (275-300); CALCIUM 8.5 mg/dL (8.5-10.1); CARBON DIOXIDE 25.9 mmol/L (21.0-32.0); CHLORIDE - SERUM 105 mmol/L (98-107); CREATININE - SERUM 0.8 mg/dL (0.6-1.3); GLUCOSE 108 mg/dL (74-106); POTASSIUM - SERUM 4.4 mmol/L (3.5-5.1); SODIUM 140 mmol/L (136-145); UREA NITROGEN 12 mg/dL (7-18); eGFR NON AFRICAN AMERICAN 83 mL/min (90-120)
== END | disposition home or self-care (01) ==
LOC: D.LABREF 12:31
PROVIDERS: Surgery
DX: L02.211 Cutaneous abscess of abdominal wall (principal); J45.909 Unspecified asthma, uncomplicated

== ENCOUNTER 2018-02-01 22:49 | Emergency (ER) | payer MEDICARE ==
[~2018-02-01] VITALS: Ht 165.1 cm; Wt 159.1 kg
[~2018-02-01 22:49] MED LIST changes: -DEMEROL100 MG PO; -LEVAQUIN250 MG PO; -ULTRAM50 MG PO
[2018-02-01 23:02] VITALS: Ht 165.1 cm; Wt 159.1 kg
[2018-02-02 01:04] VITALS: BP 147/78
== END 2018-02-02 03:15 | disposition home or self-care (01) ==
LOC: D.ER 22:49
DX: T78.49XA Other allergy, initial encounter (principal); X58.XXXA Exposure to other specified factors, initial encounter; R10.9 Unspecified abdominal pain; R11.2 Nausea with vomiting, unspecified

== ENCOUNTER 2018-03-05 16:07 | Inpatient (IN) | payer MEDICARE ==
[~2018-03-05] VITALS: Ht 165.1 cm; Wt 158.8 kg
--- NOTE | ~2018-03-05 | OP ---
PATIENT NAME: AYAKA HEDRICK MEDICAL RECORD: [id number] :73 LOCATION:D.MS Agustin2226 ADMISSION DATE:03/05/18 SURGEON: SADIQ GOODSON MD DATE OF OPERATION: 03/11/2018 PREOPERATIVE DIAGNOSIS: Recurrent subcutaneous abdominal wall infection. POSTOPERATIVE DIAGNOSIS: Recurrent subcutaneous abdominal wall infection with no evidence of a retained foreign body. PROCEDURE: Sharp excisional wide debridement of abdominal wall subcutaneous infection. SURGEON: Sadiq Goodson MD GLOBAL ENGINEERING MANAGER: None. BLOOD LOSS: 100 cc. ANESTHESIA: General. COMPLICATIONS: None. The dimensions debrided, including margins, measured 13.0 cm in the medial lateral dimension as well as 6 cm in depth at its greatest point which was laterally and the cephalad caudad dimension was 4.2 cm. The tissues debrided include granulation tissue, anterior abdominal wall fascia, skin, subcutaneous tissue and an infected sinus tract. I debrided back to viable bleeding tissue. This was a sharp debridement with scalpel. OPERATIVE COURSE: The patient was conveyed to the operating room electively on 03/11/2018. General anesthesia was induced by the anesthesia staff. The abdomen was sterilely prepped and draped. With a scalpel, I excised from medial to lateral utilizing double curvilinear incisions. I excised the skin and subcutaneous tissue as well as a granulating infected tract. After this initial excisional debridement, I identified that additional tissue needed to be debrided out laterally and also some anterior abdominal wall fascia needed to be debrided. This was sharply debrided with scalpel. The final dimensions of debridement are listed above. Meticulous hemostasis was achieved with the electrocautery. I then packed the wound with gauze. A sterile dressing was applied. The patient was then extubated and conveyed to the post-anesthesia care unit where she was in stable condition. My plan for her will be daily saline wet-to-dry dressings. My preference is that a wound VAC not be used for these wound dressings. There was a lot of tunneling and I would be fearful that if a wound VAC was used that there could be the possibility of a retained portion of a sponge. TRANSINT:[id number] Voice Confirmation ID: [id number] DOCUMENT ID: [id number] OPERATIVE REPORT [id number] AYAKA HEDRICK ROBERT MD CC: [id number] DICTATION DATE: 03/22/18 1450 DIRECTOR TITLE: 03/22/18 1617 DIS IN 03/14/18 [facility] [address] [place] [address]
[2018-03-05] MEDS ORDERED: ULTRAM50 MG PO (17:07)
[2018-03-05 18:50] LABS: BASOPHILS 0.1 % (0-2); EOSINOPHILS 5.5 % (0-7); HEMATOCRIT 35.1 % (36.0-48.0); HEMOGLOBIN 11.4 g/dL (12-16); IMMATURE GRANULOCYTES 0.1 % (0-5); LYMPHOCYTES 28.8 % (15-50); MCH 26.6 pg (26.0-34.0); MCHC 32.5 g/dL (31.0-37.0); MEAN PLATELET VOLUME 10.7 fL (7.4-10.4); MONOCYTES 7.3 % (2-11); NEUTROPHILS 58.2 % (40-80); PLATELET COUNT 150 10x3/uL (130-400); RBC 4.28 10x6/uL (4.00-5.40); RDW 13.1 % (11.5-14.5); WBC 7.4 10x3/uL (4.8-10.8)
[2018-03-05 19:04] LABS: ALBUMIN 3.3 g/dL (3.4-5.0); ALKALINE PHOSPHATASE 104 U/L (46-116); ALT (SGPT) 20 U/L (10-68); BILIRUBIN - TOTAL 0.15 mg/dL (0.2-1.3); C-REACTIVE PROTEIN 2.2 mg/dL (0.0-0.9); CALC OSMOLALITY 285 mosm/kg (275-300); CALCIUM 8.5 mg/dL (8.5-10.1); CARBON DIOXIDE 25.4 mmol/L (21.0-32.0); CHLORIDE - SERUM 107 mmol/L (98-107); CREATININE - SERUM 0.8 mg/dL (0.6-1.3); GLUCOSE 122 mg/dL (74-106); POTASSIUM - SERUM 3.8 mmol/L (3.5-5.1); PROTEIN - SERUM 6.8 g/dL (6.4-8.2); SODIUM 143 mmol/L (136-145); UREA NITROGEN 12 mg/dL (7-18); eGFR NON AFRICAN AMERICAN 83 mL/min (90-120)
[2018-03-05 21:31] LABS: APPEARANCE CLEAR (CLEAR); BILIRUBIN NEGATIVE (NEGATIVE); COLOR YELLOW (YELLOW); GLUCOSE NEGATIVE (NEGATIVE); KETONE NEGATIVE (NEGATIVE); NITRITE NEGATIVE (NEGATIVE); PROTEIN NEGATIVE (NEGATIVE); UROBILINOGEN NORMAL (NORMAL)
[2018-03-06 04:40] VITALS: BP 147/103
[2018-03-06 04:51] VITALS: BP 147/103; BMI 58.3
[2018-03-06 08:05] VITALS: BP 179/86
[2018-03-06 14:52] VITALS: BMI 58.2
[2018-03-06 21:30] VITALS: BP 116/86
[2018-03-07 00:50] VITALS: BP 130/77
[2018-03-07 05:15] VITALS: BP 159/84
[2018-03-07 21:50] VITALS: BP 117/52
[2018-03-07 22:17] VITALS: Ht 165.1 cm; Wt 158.8 kg
[2018-03-08 05:45] LABS: BASOPHILS 0.2 % (0-2); EOSINOPHILS 6.6 % (0-7); HEMATOCRIT 32.6 % (36.0-48.0); IMMATURE GRANULOCYTES 0.2 % (0-5); LYMPHOCYTES 29.6 % (15-50); MCH 26.5 pg (26.0-34.0); MCHC 30.7 g/dL (31.0-37.0); MCV 86.5 fL (80.0-100.0); MEAN PLATELET VOLUME 11.3 fL (7.4-10.4); MONOCYTES 7.9 % (2-11); NEUTROPHILS 55.5 % (40-80); PLATELET COUNT 152 10x3/uL (130-400); RBC 3.77 10x6/uL (4.00-5.40); RDW 13.4 % (11.5-14.5); WBC 4.7 10x3/uL (4.8-10.8)
[2018-03-08 06:04] LABS: CALC OSMOLALITY 280 mosm/kg (275-300); CALCIUM 8.2 mg/dL (8.5-10.1); CARBON DIOXIDE 27.4 mmol/L (21.0-32.0); CHLORIDE - SERUM 107 mmol/L (98-107); CREATININE - SERUM 0.8 mg/dL (0.6-1.3); GLUCOSE 114 mg/dL (74-106); POTASSIUM - SERUM 3.9 mmol/L (3.5-5.1); SODIUM 141 mmol/L (136-145); UREA NITROGEN 11 mg/dL (7-18); eGFR NON AFRICAN AMERICAN 83 mL/min (90-120)
[2018-03-08 08:29] VITALS: BP 121/63
[2018-03-08 12:04] VITALS: BP 148/61
[2018-03-08 16:24] VITALS: BP 138/77
[2018-03-08 20:00] VITALS: BP 119/75
[2018-03-09 06:18] VITALS: BP 101/60
[2018-03-09 07:56] LABS: BASOPHILS 0.2 % (0-2); EOSINOPHILS 7.6 % (0-7); HEMATOCRIT 33.4 % (36.0-48.0); HEMOGLOBIN 10.5 g/dL (12-16); IMMATURE GRANULOCYTES 0.2 % (0-5); LYMPHOCYTES 28.9 % (15-50); MCH 26.4 pg (26.0-34.0); MCHC 31.4 g/dL (31.0-37.0); MEAN PLATELET VOLUME 10.9 fL (7.4-10.4); MONOCYTES 8.4 % (2-11); NEUTROPHILS 54.7 % (40-80); PLATELET COUNT 149 10x3/uL (130-400); RBC 3.97 10x6/uL (4.00-5.40); RDW 13.1 % (11.5-14.5)
[2018-03-09 08:01] LABS: MCV 84.1 fL (80.0-100.0)
[2018-03-09 08:03] LABS: CALC OSMOLALITY 284 mosm/kg (275-300); CALCIUM 8.3 mg/dL (8.5-10.1); CARBON DIOXIDE 27.9 mmol/L (21.0-32.0); CHLORIDE - SERUM 107 mmol/L (98-107); CREATININE - SERUM 0.7 mg/dL (0.6-1.3); GLUCOSE 106 mg/dL (74-106); POTASSIUM - SERUM 4.3 mmol/L (3.5-5.1); SODIUM 143 mmol/L (136-145); UREA NITROGEN 12 mg/dL (7-18); eGFR NON AFRICAN AMERICAN > 90 mL/min (90-120)
[2018-03-09 08:05] VITALS: BP 159/71
[2018-03-09 13:21] VITALS: BP 155/87
[2018-03-09 20:00] VITALS: BP 136/79
[2018-03-10 03:37] VITALS: BP 139/70
[2018-03-10 07:01] LABS: CALC OSMOLALITY 285 mosm/kg (275-300); CALCIUM 8.5 mg/dL (8.5-10.1); CARBON DIOXIDE 26.6 mmol/L (21.0-32.0); CHLORIDE - SERUM 107 mmol/L (98-107); CREATININE - SERUM 0.7 mg/dL (0.6-1.3); GLUCOSE 109 mg/dL (74-106); POTASSIUM - SERUM 4.2 mmol/L (3.5-5.1); SODIUM 143 mmol/L (136-145); UREA NITROGEN 12 mg/dL (7-18); eGFR NON AFRICAN AMERICAN > 90 mL/min (90-120)
[2018-03-10 07:12] LABS: BASOPHILS 0.2 % (0-2); EOSINOPHILS 8.1 % (0-7); HEMATOCRIT 33.3 % (36.0-48.0); HEMOGLOBIN 10.5 g/dL (12-16); IMMATURE GRANULOCYTES 0.2 % (0-5); LYMPHOCYTES 29.1 % (15-50); MCH 26.7 pg (26.0-34.0); MCHC 31.5 g/dL (31.0-37.0); MCV 84.7 fL (80.0-100.0); MEAN PLATELET VOLUME 10.7 fL (7.4-10.4); MONOCYTES 9.8 % (2-11); NEUTROPHILS 52.6 % (40-80); PLATELET COUNT 151 10x3/uL (130-400); RBC 3.93 10x6/uL (4.00-5.40); RDW 13.2 % (11.5-14.5); WBC 5.3 10x3/uL (4.8-10.8)
[2018-03-10 08:40] VITALS: BP 174/79
[2018-03-10 11:40] VITALS: BP 139/81
[2018-03-10 16:11] VITALS: BP 148/86
[2018-03-10 20:00] VITALS: BP 148/81
[2018-03-11] VITALS (13 sets, daily range): BP systolic 116–161; BP diastolic 66–88
[2018-03-11 06:55] LABS: CALC OSMOLALITY 281 mosm/kg (275-300); CALCIUM 8.3 mg/dL (8.5-10.1); CARBON DIOXIDE 26.4 mmol/L (21.0-32.0); CHLORIDE - SERUM 106 mmol/L (98-107); CREATININE - SERUM 0.7 mg/dL (0.6-1.3); GLUCOSE 82 mg/dL (74-106); SODIUM 142 mmol/L (136-145); UREA NITROGEN 12 mg/dL (7-18); eGFR NON AFRICAN AMERICAN > 90 mL/min (90-120)
[2018-03-11 07:46] LABS: BASOPHILS 0.2 % (0-2); EOSINOPHILS 7.4 % (0-7); HEMATOCRIT 35.1 % (36.0-48.0); HEMOGLOBIN 11.1 g/dL (12-16); IMMATURE GRANULOCYTES 0.6 % (0-5); LYMPHOCYTES 24.2 % (15-50); MCH 26.6 pg (26.0-34.0); MCHC 31.6 g/dL (31.0-37.0); MEAN PLATELET VOLUME 11.9 fL (7.4-10.4); MONOCYTES 9.8 % (2-11); NEUTROPHILS 57.8 % (40-80); PLATELET COUNT 134 10x3/uL (130-400); RBC 4.18 10x6/uL (4.00-5.40); RDW 13.3 % (11.5-14.5); WBC 5.4 10x3/uL (4.8-10.8)
[2018-03-12 04:29] VITALS: BP 115/68
[2018-03-12 07:14] LABS: CALCIUM 8.4 mg/dL (8.5-10.1); CARBON DIOXIDE 26.2 mmol/L (21.0-32.0); POTASSIUM - SERUM 4.2 mmol/L (3.5-5.1)
[2018-03-12 07:18] LABS: CREATININE - SERUM 0.9 mg/dL (0.6-1.3)
[2018-03-12 07:20] LABS: BASOPHILS 0.2 % (0-2); EOSINOPHILS 6.2 % (0-7); HEMATOCRIT 34.2 % (36.0-48.0); HEMOGLOBIN 10.7 g/dL (12-16); IMMATURE GRANULOCYTES 0.2 % (0-5); LYMPHOCYTES 20.8 % (15-50); MCH 26.6 pg (26.0-34.0); MCHC 31.3 g/dL (31.0-37.0); MCV 84.9 fL (80.0-100.0); MEAN PLATELET VOLUME 11.4 fL (7.4-10.4); MONOCYTES 10.1 % (2-11); NEUTROPHILS 62.5 % (40-80); PLATELET COUNT 156 10x3/uL (130-400); RBC 4.03 10x6/uL (4.00-5.40); RDW 13.3 % (11.5-14.5); WBC 6.3 10x3/uL (4.8-10.8)
[2018-03-12 08:22] VITALS: BP 123/73
[2018-03-12 12:42] VITALS: BP 123/68
[2018-03-12 16:19] VITALS: BP 128/70
[2018-03-12 22:31] VITALS: BP 103/64
[2018-03-13 04:00] VITALS: BP 133/70
[2018-03-13 09:13] VITALS: BP 118/64
[2018-03-13 20:00] VITALS: BP 155/78
[2018-03-14 04:00] VITALS: BP 160/82
[2018-03-14] MEDS ORDERED: LEVAQUIN250 MG PO (08:32)
[2018-03-14] MEDS ORDERED: DEMEROL100 MG PO ×2 (08:32→13:56)
[2018-03-14 09:10] VITALS: BP 140/75
[2018-03-14] MEDS ORDERED: DOXYCYCLINE HY100 M2 PO (11:03)
== END 2018-03-14 14:51 | disposition home health service (06) | DRG 857 ==
LOC: D.ER 16:07 → D.MS 23:31 → D.SDCHOLD 03-08 10:44 → D.MS 03-08 10:47
PROVIDERS: Family Medicine; Internal Medicine Nephrology; Surgery
PROC: 05HF33Z Insertion of Infusion Device into Left Cephalic Vein, Percutaneous Approach (ICD-10-PCS; 2018-03-05)
PROC: B54NZZA Ultrasonography of Left Upper Extremity Veins, Guidance (ICD-10-PCS; 2018-03-05)
PROC: 0JB80ZZ Excision of Abdomen Subcutaneous Tissue and Fascia, Open Approach (ICD-10-PCS; principal; 2018-03-11 09:15)
DX: T81.4XXA Infection following a procedure, initial encounter (principal); Z68.43 Body mass index [BMI] 50.0-59.9, adult; L02.211 Cutaneous abscess of abdominal wall; I10 Essential (primary) hypertension; E66.01 Morbid (severe) obesity due to excess calories; J45.909 Unspecified asthma, uncomplicated; D50.9 Iron deficiency anemia, unspecified

== ENCOUNTER 2018-04-18 18:40 | Emergency (ER) | payer MEDICARE ==
[~2018-04-18] VITALS: Ht 165.1 cm; Wt 158.8 kg
[~2018-04-18 18:40] MED LIST changes: +DEMEROL100 MG PO; +LEVAQUIN250 MG PO; +ULTRAM50 MG PO
[2018-04-18 18:58] VITALS: Ht 165.1 cm; Wt 158.8 kg
[2018-04-18 20:06] LABS: BASOPHILS 0.1 % (0-2); EOSINOPHILS 3.7 % (0-7); HEMATOCRIT 37.2 % (36.0-48.0); HEMOGLOBIN 12.1 g/dL (12-16); IMMATURE GRANULOCYTES 0.2 % (0-5); LYMPHOCYTES 20.7 % (15-50); MCH 26.1 pg (26.0-34.0); MCHC 32.5 g/dL (31.0-37.0); MCV 80.2 fL (80.0-100.0); MEAN PLATELET VOLUME 10.6 fL (7.4-10.4); NEUTROPHILS 67.3 % (40-80); PLATELET COUNT 159 10x3/uL (130-400); RBC 4.64 10x6/uL (4.00-5.40); RDW 13.7 % (11.5-14.5); WBC 8.9 10x3/uL (4.8-10.8)
[2018-04-18 20:47] LABS: ALBUMIN 3.4 g/dL (3.4-5.0); ALKALINE PHOSPHATASE 96 U/L (46-116); ALT (SGPT) 15 U/L (10-68); BILIRUBIN - TOTAL 0.21 mg/dL (0.2-1.3); CALC OSMOLALITY 283 mosm/kg (275-300); CALCIUM 9.3 mg/dL (8.5-10.1); CHLORIDE - SERUM 108 mmol/L (98-107); CREATININE - SERUM 0.7 mg/dL (0.6-1.3); GLUCOSE 114 mg/dL (74-106); PROTEIN - SERUM 6.7 g/dL (6.4-8.2); SODIUM 142 mmol/L (136-145); UREA NITROGEN 12 mg/dL (7-18); eGFR NON AFRICAN AMERICAN > 90 mL/min (90-120)
[2018-04-18] MEDS ORDERED: CLEOCIN HCL300 MG PO (22:22)
[2018-04-18 23:23] VITALS: BP 159/87
== END 2018-04-18 23:23 | disposition home or self-care (01) ==
LOC: D.ER 18:40
PROVIDERS: Family Medicine
DX: L03.311 Cellulitis of abdominal wall (principal)

== ENCOUNTER 2018-04-20 12:45 | Emergency (ER) | payer MEDICARE ==
[~2018-04-20] VITALS: Ht 165.1 cm; Wt 159.1 kg
[2018-04-20 13:01] VITALS: Ht 165.1 cm; Wt 159.1 kg
[2018-04-20 13:50] LABS: BASOPHILS 0.1 % (0-2); EOSINOPHILS 2.7 % (0-7); HEMATOCRIT 39.4 % (36.0-48.0); HEMOGLOBIN 12.5 g/dL (12-16); IMMATURE GRANULOCYTES 0.3 % (0-5); LYMPHOCYTES 18.1 % (15-50); MCHC 31.7 g/dL (31.0-37.0); MCV 81.9 fL (80.0-100.0); MEAN PLATELET VOLUME 11.2 fL (7.4-10.4); MONOCYTES 6.8 % (2-11); PLATELET COUNT 155 10x3/uL (130-400); RBC 4.81 10x6/uL (4.00-5.40); RDW 13.7 % (11.5-14.5); WBC 9.6 10x3/uL (4.8-10.8)
[2018-04-20 14:08] LABS: ALBUMIN 3.4 g/dL (3.4-5.0); ALKALINE PHOSPHATASE 98 U/L (46-116); ALT (SGPT) 16 U/L (10-68); BILIRUBIN - TOTAL 0.23 mg/dL (0.2-1.3); CALC OSMOLALITY 280 mosm/kg (275-300); CALCIUM 9.6 mg/dL (8.5-10.1); CHLORIDE - SERUM 105 mmol/L (98-107); CREATININE - SERUM 0.7 mg/dL (0.6-1.3); GLUCOSE 110 mg/dL (74-106); POTASSIUM - SERUM 4.2 mmol/L (3.5-5.1); SODIUM 141 mmol/L (136-145); UREA NITROGEN 11 mg/dL (7-18); eGFR NON AFRICAN AMERICAN > 90 mL/min (90-120)
[2018-04-20 17:53] VITALS: BP 140/74
== END 2018-04-20 17:54 | disposition home or self-care (01) ==
LOC: D.ER 12:45
PROVIDERS: Family Medicine
DX: L03.311 Cellulitis of abdominal wall (principal)

== ENCOUNTER 2018-09-02 16:18 | Emergency (ER) | payer OTHER ==
[~2018-09-02] VITALS: Ht 165.1 cm; Wt 170.1 kg
[2018-09-02 16:39] VITALS: Ht 165.1 cm; Wt 170.1 kg
[2018-09-02 18:06] LABS: BASOPHILS 0.1 % (0-2); EOSINOPHILS 1.3 % (0-7); HEMATOCRIT 39.3 % (36.0-48.0); IMMATURE GRANULOCYTES 0.2 % (0-5); LYMPHOCYTES 17.5 % (15-50); MCH 27.1 pg (26.0-34.0); MCHC 33.1 g/dL (31.0-37.0); MCV 81.9 fL (80.0-100.0); MONOCYTES 6.2 % (2-11); NEUTROPHILS 74.7 % (40-80); RDW 13.9 % (11.5-14.5); WBC 10.3 10x3/uL (4.8-10.8)
[2018-09-02 18:07] LABS: APTT 25.2 SECONDS (22.8-39.4); INR 1.03 (0.85-1.17); PLATELET COUNT 192 10x3/uL (130-400)
[2018-09-02 18:18] LABS: ALBUMIN 3.6 g/dL (3.4-5.0); ALKALINE PHOSPHATASE 110 U/L (46-116); ALT (SGPT) 26 U/L (10-68); BILIRUBIN - TOTAL 0.35 mg/dL (0.2-1.3); CALC OSMOLALITY 280 mosm/kg (275-300); CALCIUM 9.4 mg/dL (8.5-10.1); CARBON DIOXIDE 26.6 mmol/L (21.0-32.0); CHLORIDE - SERUM 103 mmol/L (98-107); CREATININE - SERUM 0.9 mg/dL (0.6-1.3); GLUCOSE 105 mg/dL (74-106); POTASSIUM - SERUM 3.7 mmol/L (3.5-5.1); PROTEIN - SERUM 7.5 g/dL (6.4-8.2); SODIUM 139 mmol/L (136-145); UREA NITROGEN 22 mg/dL (7-18); eGFR NON AFRICAN AMERICAN 72 mL/min (90-120)
[2018-09-02 18:20] LABS: CKMB 3.3 U/L (0.0-3.6); CREATINE KINASE 73 UL (21-215); TROPONIN-I < 0.017 ng/mL (0.000-0.060)
[2018-09-02] MEDS ORDERED: VISTARIL25 MG PO (21:20)
[2018-09-02 21:44] VITALS: BP 154/67
== END 2018-09-02 21:44 | disposition home or self-care (01) ==
LOC: D.ER 16:18
PROVIDERS: Family Medicine
DX: R06.02 Shortness of breath (principal); R60.0 Localized edema; E66.01 Morbid (severe) obesity due to excess calories

== ENCOUNTER 2018-12-14 18:49 | Inpatient (IN) | payer OTHER ==
[~2018-12-14] VITALS: Ht 165.1 cm; Wt 158.8 kg
[~2018-12-14 18:49] MED LIST changes: +VISTARIL25 MG PO
[2018-12-14] MEDS ORDERED: ULTRAM50 MG PO (19:01)
[2018-12-14] MEDS ORDERED: CLEOCIN HCL300 MG PO (19:02)
[2018-12-14 20:13] LABS: BASOPHILS 0.2 % (0-2); EOSINOPHILS 2.6 % (0-7); HEMATOCRIT 39.6 % (36.0-48.0); HEMOGLOBIN 13.2 g/dL (12-16); IMMATURE GRANULOCYTES 0.3 % (0-5); LYMPHOCYTES 18.7 % (15-50); MCH 27.3 pg (26.0-34.0); MCHC 33.3 g/dL (31.0-37.0); MEAN PLATELET VOLUME 11.3 fL (7.4-10.4); MONOCYTES 9.8 % (2-11); NEUTROPHILS 68.4 % (40-80); RBC 4.83 10x6/uL (4.00-5.40); RDW 14.5 % (11.5-14.5); WBC 6.1 10x3/uL (4.8-10.8)
[2018-12-14 20:25] LABS: PLATELET COUNT 114 10x3/uL (130-400)
[2018-12-14 20:46] LABS: ALBUMIN 3.3 g/dL (3.4-5.0); ANION GAP 12.4 mmol/L (8-16); BILIRUBIN - TOTAL 0.31 mg/dL (0.2-1.3); CALCIUM 9.3 mg/dL (8.5-10.1); CARBON DIOXIDE 27.6 mmol/L (21.0-32.0); CREATININE - SERUM 0.9 mg/dL (0.6-1.3); PROTEIN - SERUM 7.4 g/dL (6.4-8.2)
[2018-12-15 00:26] VITALS: BP 141/87; BMI 58.3
[2018-12-15 04:00] VITALS: BP 128/72
[2018-12-15 06:40] LABS: BASOPHILS 0.2 % (0-2); EOSINOPHILS 3.6 % (0-7); HEMATOCRIT 35.8 % (36.0-48.0); HEMOGLOBIN 11.7 g/dL (12-16); IMMATURE GRANULOCYTES 0.2 % (0-5); LYMPHOCYTES 25.7 % (15-50); MCHC 32.7 g/dL (31.0-37.0); MCV 82.5 fL (80.0-100.0); MEAN PLATELET VOLUME 11.6 fL (7.4-10.4); NEUTROPHILS 58.3 % (40-80); PLATELET COUNT 116 10x3/uL (130-400); RBC 4.34 10x6/uL (4.00-5.40); RDW 14.7 % (11.5-14.5)
[2018-12-15 07:00] LABS: ALBUMIN 2.9 g/dL (3.4-5.0); ALKALINE PHOSPHATASE 77 U/L (46-116); ALT (SGPT) 19 U/L (10-68); BILIRUBIN - TOTAL 0.32 mg/dL (0.2-1.3); CALC OSMOLALITY 281 mosm/kg (275-300); CARBON DIOXIDE 25.3 mmol/L (21.0-32.0); CHLORIDE - SERUM 107 mmol/L (98-107); CREATININE - SERUM 0.7 mg/dL (0.6-1.3); GLUCOSE 81 mg/dL (74-106); MAGNESIUM - SERUM 2.1 mg/dL (1.8-2.4); POTASSIUM - SERUM 3.7 mmol/L (3.5-5.1); PROTEIN - SERUM 6.6 g/dL (6.4-8.2); SODIUM 141 mmol/L (136-145); UREA NITROGEN 17 mg/dL (7-18); eGFR NON AFRICAN AMERICAN > 90 mL/min (90-120)
[2018-12-15 08:35] VITALS: BP 107/74
[2018-12-15 12:49] VITALS: BP 135/68
[2018-12-15 14:37] VITALS: Ht 165.1 cm; Wt 158.8 kg
[2018-12-15 16:07] VITALS: BP 111/79
[2018-12-15 20:00] VITALS: BP 123/82
[2018-12-16 04:00] VITALS: BP 124/69
[2018-12-16 05:52] LABS: BASOPHILS 0.2 % (0-2); EOSINOPHILS 3.5 % (0-7); HEMATOCRIT 35.8 % (36.0-48.0); HEMOGLOBIN 11.5 g/dL (12-16); IMMATURE GRANULOCYTES 0.2 % (0-5); MCH 26.8 pg (26.0-34.0); MCHC 32.1 g/dL (31.0-37.0); MCV 83.4 fL (80.0-100.0); MEAN PLATELET VOLUME 11.4 fL (7.4-10.4); MONOCYTES 10.9 % (2-11); NEUTROPHILS 59.2 % (40-80); PLATELET COUNT 137 10x3/uL (130-400); RBC 4.29 10x6/uL (4.00-5.40); RDW 14.5 % (11.5-14.5); WBC 5.2 10x3/uL (4.8-10.8)
[2018-12-16 05:54] LABS: ALBUMIN 2.9 g/dL (3.4-5.0); ALKALINE PHOSPHATASE 75 U/L (46-116); ALT (SGPT) 19 U/L (10-68); BILIRUBIN - TOTAL 0.35 mg/dL (0.2-1.3); CALC OSMOLALITY 277 mosm/kg (275-300); CALCIUM 8.8 mg/dL (8.5-10.1); CARBON DIOXIDE 25.8 mmol/L (21.0-32.0); CHLORIDE - SERUM 106 mmol/L (98-107); CREATININE - SERUM 0.6 mg/dL (0.6-1.3); GLUCOSE 83 mg/dL (74-106); POTASSIUM - SERUM 3.6 mmol/L (3.5-5.1); PROTEIN - SERUM 6.5 g/dL (6.4-8.2); SODIUM 140 mmol/L (136-145); UREA NITROGEN 13 mg/dL (7-18); VANCOMYCIN - TROUGH 22.4 ug/mL (10.0-20.0); eGFR NON AFRICAN AMERICAN > 90 mL/min (90-120)
[2018-12-16 09:09] VITALS: BP 156/75
[2018-12-16 13:28] VITALS: BP 122/72
[2018-12-16 16:17] VITALS: BP 131/74
[2018-12-16 20:38] VITALS: BP 117/69
[2018-12-17 01:22] VITALS: BP 131/86
[2018-12-17 05:40] VITALS: BP 115/82
[2018-12-17 07:17] LABS: BASOPHILS 0 % (0-2); EOSINOPHILS 4.4 % (0-7); HEMATOCRIT 34.6 % (36.0-48.0); HEMOGLOBIN 11.3 g/dL (12-16); IMMATURE GRANULOCYTES 0.9 % (0-5); MCH 26.8 pg (26.0-34.0); MCHC 32.7 g/dL (31.0-37.0); MCV 82.2 fL (80.0-100.0); MEAN PLATELET VOLUME 11.3 fL (7.4-10.4); MONOCYTES 9.4 % (2-11); NEUTROPHILS 55.3 % (40-80); PLATELET COUNT 136 10x3/uL (130-400); RBC 4.21 10x6/uL (4.00-5.40); WBC 4.3 10x3/uL (4.8-10.8)
[2018-12-17 07:42] LABS: ALBUMIN 2.8 g/dL (3.4-5.0); ALKALINE PHOSPHATASE 80 U/L (46-116); ALT (SGPT) 19 U/L (10-68); BILIRUBIN - TOTAL 0.24 mg/dL (0.2-1.3); CALC OSMOLALITY 278 mosm/kg (275-300); CALCIUM 8.6 mg/dL (8.5-10.1); CARBON DIOXIDE 26.7 mmol/L (21.0-32.0); CHLORIDE - SERUM 105 mmol/L (98-107); CREATININE - SERUM 0.7 mg/dL (0.6-1.3); GLUCOSE 89 mg/dL (74-106); POTASSIUM - SERUM 3.4 mmol/L (3.5-5.1); PROTEIN - SERUM 6.2 g/dL (6.4-8.2); SODIUM 140 mmol/L (136-145); UREA NITROGEN 14 mg/dL (7-18); eGFR NON AFRICAN AMERICAN > 90 mL/min (90-120)
[2018-12-17 08:50] VITALS: BP 132/57
--- NOTE | 2018-12-17 09:57 | MORECARE ---
CASE MANAGEMENT DISCHARGE SUMMARY PATIENT: AYAKA HEDRICK UNIT: [id number] ADM DATE: 12/14/18 AGE: 43 : 73 SEX: F ROOM/BED: D.[facility] AUTHOR: BONI GAUTHIER PHYSICIAN: REFERRING PHYSICIAN: ISAAC GRISSOM MD DATE OF SERVICE: 12/17/18 Discharge Plan Patient Name: AYAKA HEDRICK [facility] [facility] 1975 Planned Disposition: Home Anticipated Discharge Date: Discharge Date: Expected LOS: Initial Reviewer: [email or web address] Initial Review Date: 12/17/2018 Generated: 12/17/18 10:57 am DCPIA - Discharge Planning Initial Assessment Updated by [email or web address]: Fara Martínez on 12/17/18 9:56 am * Is the patient Alert and Oriented? Yes * How many steps to enter\exit or inside your home? 3/0 * PCP Dr. Holman * Pharmacy [facility] * Preadmission Environment Home with Family * ADLs Independent * Equipment None * List name and contact numbers for known caregivers / representatives who currently or will assist patient after discharge: Taylor Travis [facility] [phone] Billie Tai [facility] [phone] * Verbal permission to speak to the caregivers and representatives has been obtained from the patient. Yes * Community resources currently utilized None * Additional services required to return to the preadmission environment? No * Can the patient safely return to the preadmission environment? Yes * Has this patient been hospitalized within the prior 30 days at any hospital? No Patient Name: AYAKA HEDRICK Page [id number] at 0957 All edits/amendments must be made on the electronic document DICTATION DATE: 12/17/18955 CUSTOMER SERVICE ATTENDANT: SIL 12/17/18955 RPT#: [id number] DC DATE: STATUS: ADM IN [facility] [address] [place] [address] END OF REPORT
--- NOTE | 2018-12-17 10:12 | MORECARE ---
CASE MANAGEMENT DISCHARGE SUMMARY PATIENT: AYAKA HEDRICK UNIT: [id number] ADM DATE: 12/14/18 AGE: 43 : 73 SEX: F ROOM/BED: D.2232 AUTHOR: DISHA,DOC PHYSICIAN: REFERRING PHYSICIAN: ISAAC GRISSOM MD DATE OF SERVICE: 12/17/18 Discharge Plan Patient Name: AYAKA HEDRICK Facility: [facility]:[place] : 1975 Planned Disposition: Home Anticipated Discharge Date: Discharge Date: Expected LOS: Initial Reviewer: [email or web address] Initial Review Date: 12/17/2018 Generated: 12/17/18 11:11 am Comments DCP- Discharge Planning Updated by [email or web address]: Fara Martínez on 12/17/18 9:[address] Patient Name: AYAKA HEDRICK Admission Status: ER Accout number: [id number] Admission Date: 12-14-2018 : 1975 Admission Diagnosis:CELLULITIS OF RIGHT LOWER LIMB Attending: ISAAC GRISSOM Current LOS: 3 Anticipated DC Date: Planned Disposition: Home Primary Insurance: [employer] Discharge Planning Comments: CM met with patient to complete initial dc planning assessment. CM educated patient on the CM role and verbal consent given by patient to complete assessment. Patient lives at home with her aunt (she's deaf), mother 17 year old daughter and 21 year old daughter. At discharge patient plans to return and feels this is a safe discharge. CM discussed availability of home health, rehab services, and medical equipment. Patient denied known discharge needs at this time. States she has had [facility] in the past, but denies need at this time. CM will continue to follow and will assist as needed with dc plans/needs. Sales Development Manager: Fara Martínez DCPIA - Discharge Planning Initial Assessment Updated by [email or web address]: Fara Martínez on 12/17/18 9:56 am * Is the patient Alert and Oriented? Yes * How many steps to enter\exit or inside your home? 3/0 * PCP Dr. Holman * Pharmacy [facility] * Preadmission Environment Home with Family * ADLs Independent * Equipment None * List name and contact numbers for known caregivers / representatives who currently or will assist patient after discharge: Taylor Travis - [facility] - [phone] Billie Patton [facility] - [phone] * Verbal permission to speak to the caregivers and representatives has been obtained from the patient. Yes * Community resources currently utilized None * Additional services required to return to the preadmission environment? No * Can the patient safely return to the preadmission environment? Yes * Has this patient been hospitalized within the prior 30 days at any hospital? No Last DP export: 12/17/18 8:57 a Patient Name: AYAKA HEDRICK Page [phone] at 1012 All edits/amendments must be made on the electronic document DICTATION DATE: 12/17/18 1011 LABOR RELATIONS SPECIALIST: SIL 12/17/18 1011 RPT#: [id number] DC DATE: STATUS: ADM IN [facility] [address] [place] [address] END OF REPORT
[2018-12-17] MEDS ORDERED: COLACE100 MG PO (12:02)
[2018-12-17] MEDS ORDERED: ZANAFLEX4 MG PO (12:04)
[2018-12-17] MEDS ORDERED: HYDROCODON-ACE1 EA10 PO (12:04)
--- NOTE | 2018-12-17 12:53 | MORECARE ---
CASE MANAGEMENT DISCHARGE SUMMARY PATIENT: AYAKA HEDRICK UNIT: [id number] ADM DATE: 12/14/18 AGE: 43 : 73 SEX: F ROOM/BED: D.2232 AUTHOR: DISHADOC PHYSICIAN: REFERRING PHYSICIAN: ISAAC GRISSOM MD DATE OF SERVICE: 12/17/18 Discharge Plan Patient Name: AYAKA HEDRICK Facility: [facility]:[place] : 1975 Planned Disposition: Home Anticipated Discharge Date: Discharge Date: Expected LOS: Initial Reviewer: [email or web address] Initial Review Date: 12/17/2018 Generated: 12/17/18 1:52 pm Comments DCP- Discharge Planning Updated by [email or web address]: Fara Martínez on 12/17/18 11:[address] Patient Name: AYAKA HEDRICK Encounter No: [id number] : 1975 Primary Insurance: [employer] Anticipated DC Date: Planned Disposition: Home External Planned Provider: : DCP follow-up note: Patient and family in agreement with discharge plan. No changes to plan. Case management will follow and assist as needed. Fara Martínez DCP- Discharge Planning Updated by [email or web address]: Fara Martínez on 12/17/18 9:[address] Patient Name: AYAKA HEDRICK Admission Status: ER Accout number: [id number] Admission Date: 12-14-2018 : 1975 Admission Diagnosis:CELLULITIS OF RIGHT LOWER LIMB Attending: ISAAC GRISSOM Current LOS: 3 Anticipated DC Date: Planned Disposition: Home Primary Insurance: [employer] Discharge Planning Comments: CM met with patient to complete initial dc planning assessment. CM educated patient on the CM role and verbal consent given by patient to complete assessment. Patient lives at home with her aunt (she's deaf), mother 17 year old daughter and 21 year old daughter. At discharge patient plans to return and feels this is a safe discharge. CM discussed availability of home health, rehab services, and medical equipment. Patient denied known discharge needs at this time. States she has had [facility] in the past, but denies need at this time. CM will continue to follow and will assist as needed with dc plans/needs. Loans Consultant: Fara Tanya DCPIA - Discharge Planning Initial Assessment Updated by [email or web address]: Fara Martínez on 12/17/18 9:56 am * Is the patient Alert and Oriented? Yes * How many steps to enter\exit or inside your home? 3/0 * PCP Dr. Holman * Pharmacy [facility] * Preadmission Environment Home with Family * ADLs Independent * Equipment None * List name and contact numbers for known caregivers / representatives who currently or will assist patient after discharge: Taylor Travis - sister - [phone] Billie Patton mom - [phone] * Verbal permission to speak to the caregivers and representatives has been obtained from the patient. Yes * Community resources currently utilized None * Additional services required to return to the preadmission environment? No * Can the patient safely return to the preadmission environment? Yes * Has this patient been hospitalized within the prior 30 days at any hospital? No Last DP export: 12/17/18 9:12 a Patient Name: AYAKA HEDRICK Page [phone] at 1253 All edits/amendments must be made on the electronic document DICTATION DATE: 12/17/18 1252 ENGINE REPAIRER SERVICE: SIL 12/17/18 1252 RPT#: [id number] DC DATE: STATUS: ADM IN [facility] [address] [place] [address] END OF REPORT
[2018-12-17 12:57] VITALS: BP 124/77
== END 2018-12-17 14:16 | disposition home or self-care (01) | DRG 603 ==
LOC: D.ER 18:49 → D.MS 22:13
PROVIDERS: Family Medicine; ADMIT Family Medicine; ATTEND Family Medicine
PROC: 05HY33Z Insertion of Infusion Device into Upper Vein, Percutaneous Approach (ICD-10-PCS; principal; 2018-12-15)
DX: L03.115 Cellulitis of right lower limb (principal); Z68.43 Body mass index [BMI] 50.0-59.9, adult; E66.01 Morbid (severe) obesity due to excess calories; Z71.3 Dietary counseling and surveillance; K21.9 Gastro-esophageal reflux disease without esophagitis; I10 Essential (primary) hypertension

== ENCOUNTER 2019-04-03 20:30 | Emergency (ER) | payer OTHER ==
[~2019-04-03] VITALS: Ht 165.1 cm; Wt 154.5 kg
[~2019-04-03 20:30] MED LIST changes: +COLACE100 MG PO; +HYDROCODON-ACE1 EA10 PO
[2019-04-03 20:40] VITALS: Ht 165.1 cm; Wt 154.5 kg
[2019-04-03 21:53] LABS: BASOPHILS 0.3 % (0-2); EOSINOPHILS 1.7 % (0-7); HEMATOCRIT 40.6 % (36.0-48.0); HEMOGLOBIN 13.4 g/dL (12-16); IMMATURE GRANULOCYTES 0.3 % (0-5); LYMPHOCYTES 24.3 % (15-50); MCH 27.8 pg (26.0-34.0); MCV 84.2 fL (80.0-100.0); MEAN PLATELET VOLUME 10.8 fL (7.4-10.4); MONOCYTES 9.7 % (2-11); NEUTROPHILS 63.7 % (40-80); RBC 4.82 10x6/uL (4.00-5.40); RDW 13.6 % (11.5-14.5); WBC 7.2 10x3/uL (4.8-10.8)
[2019-04-03 21:54] LABS: PLATELET COUNT 187 10x3/uL (130-400)
[2019-04-03 22:10] LABS: ALBUMIN 3.7 g/dL (3.4-5.0); ALKALINE PHOSPHATASE 97 U/L (46-116); ALT (SGPT) 17 U/L (10-68); BILIRUBIN - TOTAL 0.42 mg/dL (0.2-1.3); CALC OSMOLALITY 280 mosm/kg (275-300); CALCIUM 9.9 mg/dL (8.5-10.1); CARBON DIOXIDE 26.1 mmol/L (21.0-32.0); CHLORIDE - SERUM 106 mmol/L (98-107); CREATININE - SERUM 0.7 mg/dL (0.6-1.3); GLUCOSE 93 mg/dL (74-106); POTASSIUM - SERUM 3.8 mmol/L (3.5-5.1); PROTEIN - SERUM 7.2 g/dL (6.4-8.2); SODIUM 140 mmol/L (136-145); UREA NITROGEN 19 mg/dL (7-18); eGFR NON AFRICAN AMERICAN > 90 mL/min (90-120)
[2019-04-03] MEDS ORDERED: CLEOCIN HCL300 MG PO (22:33)
[2019-04-03] MEDS ORDERED: TYLENOL W/CODEI1 TAB PO (22:35)
[2019-04-03 23:15] VITALS: BP 165/90
== END 2019-04-03 23:15 | disposition home or self-care (01) ==
LOC: D.ER 20:30
PROVIDERS: Family Medicine
DX: L01.02 Bockhart's impetigo (principal)

== ENCOUNTER 2019-06-19 11:44 | Emergency (ER) | payer OTHER ==
[~2019-06-19 11:44] MED LIST changes: +TYLENOL W/CODEI1 TAB PO
[2019-06-19 11:50] VITALS: Ht 165.1 cm
[2019-06-19 12:32] LABS: BASOPHILS 0.1 % (0-2); EOSINOPHILS 2.4 % (0-7); HEMATOCRIT 40.5 % (36.0-48.0); HEMOGLOBIN 13.1 g/dL (12-16); IMMATURE GRANULOCYTES 0.3 % (0-5); LYMPHOCYTES 31.3 % (15-50); MCHC 32.3 g/dL (31.0-37.0); MCV 86.5 fL (80.0-100.0); MEAN PLATELET VOLUME 10.5 fL (7.4-10.4); MONOCYTES 8.9 % (2-11); RBC 4.68 10x6/uL (4.00-5.40); RDW 15.1 % (11.5-14.5); WBC 6.7 10x3/uL (4.8-10.8)
[2019-06-19 12:38] LABS: PLATELET COUNT 148 10x3/uL (130-400)
[2019-06-19] MEDS ORDERED: CLEOCIN HCL300 MG PO (15:29)
[2019-06-19] MEDS ORDERED: TALWIN NX1 TAB PO (15:29)
[2019-06-19] MEDS ORDERED: VIBRAMYCIN 100100 MG PO (15:29)
[2019-06-19 16:20] VITALS: BP 174/90
== END 2019-06-19 16:20 | disposition home or self-care (01) ==
LOC: D.ER 11:44
PROVIDERS: Emergency Medicine
DX: L03.115 Cellulitis of right lower limb (principal); J45.909 Unspecified asthma, uncomplicated

== ENCOUNTER 2019-09-11 12:46 | Emergency (ER) | payer OTHER ==
[~2019-09-11] VITALS: Ht 165.1 cm; Wt 111.4 kg
[~2019-09-11 12:46] MED LIST changes: +TALWIN NX1 TAB PO
[2019-09-11 12:53] VITALS: BP 167/103; Ht 165.1 cm; Wt 111.4 kg
[2019-09-11] MEDS ORDERED: MONODOX100 MG PO (13:17)
[2019-09-11] MEDS ORDERED: HYDROCODON-ACE1 EA10 PO (13:17)
== END 2019-09-11 14:04 | disposition home or self-care (01) ==
LOC: D.ER 12:46
DX: S31.104A Unspecified open wound of abdominal wall, left lower quadrant without penetration into peritoneal cavity, initial encounter (principal); W19.XXXA Unspecified fall, initial encounter; J45.909 Unspecified asthma, uncomplicated; K21.9 Gastro-esophageal reflux disease without esophagitis

== ENCOUNTER 2019-09-12 15:40 | Emergency (ER) | payer OTHER ==
[~2019-09-12] VITALS: Ht 165.1 cm; Wt 156.8 kg
[~2019-09-12 15:40] MED LIST changes: +MONODOX100 MG PO
[2019-09-12 15:46] VITALS: BP 140/76; Ht 165.1 cm; Wt 156.8 kg
== END 2019-09-12 16:35 | disposition home or self-care (01) ==
LOC: D.ER 15:40
DX: T81.89XA Other complications of procedures, not elsewhere classified, initial encounter (principal)

== ENCOUNTER 2019-09-15 21:38 | Emergency (ER) | payer OTHER ==
[~2019-09-15] VITALS: Ht 165.1 cm; Wt 111.4 kg
[2019-09-15 21:49] VITALS: Ht 165.1 cm; Wt 111.4 kg
[2019-09-15 22:26] LABS: BASOPHILS 0 % (0-2); EOSINOPHILS 2.8 % (0-7); HEMATOCRIT 39.2 % (36.0-48.0); HEMOGLOBIN 12.4 g/dL (12-16); IMMATURE GRANULOCYTES 0.5 % (0-5); LYMPHOCYTES 27.1 % (15-50); MCH 28.4 pg (26.0-34.0); MCHC 31.6 g/dL (31.0-37.0); MCV 89.9 fL (80.0-100.0); MEAN PLATELET VOLUME 10.3 fL (7.4-10.4); NEUTROPHILS 59.6 % (40-80); PLATELET COUNT 161 10x3/uL (130-400); RBC 4.36 10x6/uL (4.00-5.40); RDW 13.4 % (11.5-14.5)
== END 2019-09-15 23:43 | disposition home or self-care (01) ==
LOC: D.ER 21:38
PROVIDERS: Emergency Medicine
DX: T81.30XA Disruption of wound, unspecified, initial encounter (principal); J45.909 Unspecified asthma, uncomplicated

== ENCOUNTER 2019-09-28 06:31 | Day surgery (SDC) | payer OTHER ==
[~2019-09-28] VITALS: Ht 165.1 cm; Wt 156.5 kg
--- NOTE | ~2019-09-28 | DS ---
PATIENT:AYAKA HEDRICK :73 MEDICAL RECORD: [id number] DISCHARGE SUMMARY ADMISSION DATE: 09/28/19 DISCHARGE DATE: 09/28/19 PRINCIPAL DIAGNOSIS: Left lower quadrant abdominal wall wound. PROCEDURE: Excisional debridement of left lower quadrant abdominal wall wound with placement of a wound VAC. HOSPITAL COURSE: The patient was admitted and underwent the above operative procedure. The patient received IV antibiotics. Her pain was controlled postoperatively. She was dismissed home with the wound VAC. I will see her in the office in 4 weeks. TRANSINT:[id number] Voice Confirmation ID: [id number] DOCUMENT ID: [id number] KRIS GOODSON MD CC: [id number] DICTATION DATE: 10/05/19 1647 MOLDED GRID AND PARTS INSPECTOR: 10/06/19 0015 [facility] 09/28/[address] [address]
--- NOTE | ~2019-09-28 | OP ---
PATIENT NAME: AYAKA HEDRICK MEDICAL RECORD: [id number] :73 [facility] DATE: SURGEON: KRIS GOODSON MD DATE OF OPERATION: 09/28/2019 PREOPERATIVE DIAGNOSIS: Open left lower quadrant wound. POSTOPERATIVE DIAGNOSIS: Open left lower quadrant wound. Please see dimensions below. PROCEDURE: Excisional debridement of abdominal wall with placement of a black wound VAC sponge. Dimensions of debridement, including margins, measured 6.2 cm in the medial and lateral dimension and 3.4 cm in cephalad and caudad dimension. The debridement included skin and subcutaneous tissue as well as granulation tissue and fascia. There was no undermining. The wound tunneled at the 2 o'clock position for 3 cm. The patient gives a history of taking a missed step and having spontaneous rupture of the abdominal wall. The patient has dogs that she plays with as well as pet rats, some of which have been sick and had been ulcerated recently, and they scurry around on her abdomen. This may be a potential source of infection. The patient states that she took a missed step and the wound opened up. She states that somehow a dog toy got into the wound. She states that this was a hard long dog toy, kind of like a rawhide. Anyhow, she presented to the Emergency Room. I then saw her in the office. OPERATIVE COURSE: The patient was conveyed to the operating room electively on 09/28/2019. General anesthesia was induced by anesthesia staff. The abdomen was sterilely prepped and draped. The wound was examined. The tunneled area was opened up bluntly. The debridement was carried out with a scalpel. I debrided back to bleeding tissue. Medially some fascia was excised and I entered an area that may have been preperitoneum or may actually be in the peritoneal cavity. I was able to close the fascia over this to reperitonealize this area. This was done with horizontal mattress #1 Vicryls. The debridement was then continued with curettage. Hemostasis was achieved with electrocautery. Cultures were obtained. I then cut a black wound VAC sponge the size of the defect, placed the wound VAC sponge into the defect and then applied the clear type dressings over the wound VAC sponge. I then incised the clear dressings and bridged the wound VAC sponge onto the lower abdomen. A wound VAC disk was applied. Suction was applied to the disk, which held a good "raisin." The patient was then extubated and conveyed to the post-anesthesia care unit where she was in stable condition. TRANSINT:[id number] Voice Confirmation ID: [id number] DOCUMENT ID: [id number] KRIS GOODSON MD CC: [id number] DICTATION DATE: 10/05/19 160 HOTEL SERVER: 10/05/19 1757 [facility] 09/28/19 [place] [id number]
[~2019-09-28 06:31] MED LIST changes: +VITAMIN D
[2019-09-28 07:03] LABS: HEMATOCRIT 40.2 % (36.0-48.0); MCH 28.9 pg (26.0-34.0); MCHC 32.3 g/dL (31.0-37.0); MCV 89.3 fL (80.0-100.0); MEAN PLATELET VOLUME 9.4 fL (7.4-10.4); RBC 4.5 10x6/uL (4.00-5.40); RDW 13.2 % (11.5-14.5); WBC 7.9 10x3/uL (4.8-10.8)
[2019-09-28 07:52] VITALS: BP 185/91; Ht 165.1 cm; Wt 156.5 kg
--- NOTE | 2019-09-28 13:27 | NUR ---
CHANGED OUT TRAC PAD SO ABDOMINAL DRESSING WAS COMPATABLE WITH VAC-VIA FOR HOME USE. PT TOLERATED WELL.
== END 2019-09-28 12:50 | disposition home or self-care (01) ==
LOC: D.OPS 06:31 → D.PAN 09:00 → D.OPS 12:50
PROVIDERS: Anesthesiology; ATTEND Surgery
DX: S31.109A Unspecified open wound of abdominal wall, unspecified quadrant without penetration into peritoneal cavity, initial encounter (principal); J45.909 Unspecified asthma, uncomplicated

== ENCOUNTER 2019-10-02 14:05 | Emergency (ER) | payer OTHER ==
[2019-10-02 14:11] VITALS: Ht 165.1 cm
[2019-10-02 17:38] VITALS: BP 151/76
== END 2019-10-02 17:39 | disposition home or self-care (01) ==
LOC: D.ER 14:05
DX: Z48.01 Encounter for change or removal of surgical wound dressing (principal); J45.909 Unspecified asthma, uncomplicated; Z98.890 Other specified postprocedural states

== ENCOUNTER → 2019-10-13 10:00 | Outpatient (CLI) | payer OTHER | END | disposition home or self-care (01) | LOC: D.LABREF 10:00 | PROVIDERS: ATTEND Surgery | DX: L02.211 Cutaneous abscess of abdominal wall (principal) ==

== ENCOUNTER 2019-11-19 20:24 | Inpatient (IN) | payer OTHER ==
[~2019-11-19] VITALS: Ht 165.1 cm; Wt 154.2 kg
[2019-11-19] MEDS ORDERED: ULTRAM50 MG PO (20:38)
[2019-11-20] MEDS ORDERED: ZANAFLEX4 MG PO (05:38)
[2019-11-21 13:02] VITALS: Ht 165.1 cm; Wt 154.2 kg
[2019-11-25 12:30] VITALS: BP 113/74
[2019-11-25] MEDS ORDERED: NYSTATIN100000 UN4 PO (16:46)
[2019-11-25] MEDS ORDERED: CLEOCIN HCL300 MG PO (16:50)
== END 2019-11-25 18:20 | disposition home or self-care (01) | DRG 571 ==
LOC: D.ER 20:24 → D.MS 22:03 → OBSVTIME 22:03 → D.MS 22:03
PROVIDERS: ADMIT Family Medicine; ATTEND Family Medicine
PROC: 0JB80ZZ Excision of Abdomen Subcutaneous Tissue and Fascia, Open Approach (ICD-10-PCS; principal; 2019-11-22)
PROC: 05HY33Z Insertion of Infusion Device into Upper Vein, Percutaneous Approach (ICD-10-PCS; 2019-11-23)
DX: L03.311 Cellulitis of abdominal wall (principal); K31.6 Fistula of stomach and duodenum; G62.9 Polyneuropathy, unspecified; J45.909 Unspecified asthma, uncomplicated; E66.9 Obesity, unspecified; Z85.89 Personal history of malignant neoplasm of other organs and systems; R56.9 Unspecified convulsions

== ENCOUNTER 2020-01-25 16:50 | Emergency (ER) | payer OTHER ==
[~2020-01-25] VITALS: Ht 165.1 cm; Wt 156.8 kg
[~2020-01-25 16:50] MED LIST changes: +NYSTATIN100000 UN4 PO
[2020-01-25 17:48] VITALS: Ht 165.1 cm; Wt 156.8 kg
[2020-01-25 22:26] VITALS: BP 131/82
== END 2020-01-25 21:25 | disposition home or self-care (01) ==
LOC: D.ER 16:50
DX: T81.49XA Infection following a procedure, other surgical site, initial encounter (principal); G62.9 Polyneuropathy, unspecified; J45.909 Unspecified asthma, uncomplicated

== ENCOUNTER → 2020-02-02 18:36 | Outpatient (CLI) | payer OTHER ==
[2020-01-25 17:48] VITALS: BMI 57.5
== END | disposition home or self-care (01) ==
LOC: D.LABREF 18:36
PROVIDERS: ATTEND Surgery
DX: S31.109D Unspecified open wound of abdominal wall, unspecified quadrant without penetration into peritoneal cavity, subsequent encounter (principal)

== ENCOUNTER 2020-02-18 10:06 | Emergency (ER) | payer OTHER ==
[2020-02-18 10:13] VITALS: Ht 167.6 cm
[2020-02-18 10:26] LABS: BASOPHILS 0.2 % (0-2); EOSINOPHILS 1.5 % (0-7); HEMATOCRIT 37.8 % (36.0-48.0); HEMOGLOBIN 12.4 g/dL (12-16); IMMATURE GRANULOCYTES 0.3 % (0-5); MCH 28.1 pg (26.0-34.0); MCHC 32.8 g/dL (31.0-37.0); MCV 85.7 fL (80.0-100.0); MEAN PLATELET VOLUME 10.3 fL (7.4-10.4); MONOCYTES 7.7 % (2-11); NEUTROPHILS 71.3 % (40-80); PLATELET COUNT 154 10x3/uL (130-400); RBC 4.41 10x6/uL (4.00-5.40); RDW 13.2 % (11.5-14.5); WBC 6.5 10x3/uL (4.8-10.8)
[2020-02-18 10:34] LABS: ANION GAP 13.2 mmol/L (8-16); CALCIUM 8.8 mg/dL (8.5-10.1); CREATININE - SERUM 0.9 mg/dL (0.6-1.3); POTASSIUM - SERUM 4.2 mmol/L (3.5-5.1)
[2020-02-18 10:39] LABS: ALBUMIN 3.7 g/dL (3.4-5.0); BILIRUBIN - TOTAL 0.48 mg/dL (0.2-1.3); PROTEIN - SERUM 7.4 g/dL (6.4-8.2)
[2020-02-18 10:52] LABS: HCG SERUM NEGATIVE (NEGATIVE)
[2020-02-18] MEDS ORDERED: LEVAQUIN750 MG PO (11:51)
[2020-02-18 12:02] LABS: BILIRUBIN NEGATIVE (NEGATIVE); KETONE NEGATIVE (NEGATIVE); NITRITE NEGATIVE (NEGATIVE); UROBILINOGEN NORMAL (NORMAL)
[2020-02-18 12:10] LABS: UDS - AMPHET NEGATIVE QUAL (NEGATIVE); UDS - BARB NEGATIVE QUAL (NEGATIVE); UDS - BENZO NEGATIVE QUAL (NEGATIVE); UDS - COCAINE NEGATIVE QUAL (NEGATIVE); UDS - OPIATE POSITIVE QUAL (NEGATIVE); UDS - PCP NEGATIVE QUAL (NEGATIVE); UDS - THC NEGATIVE QUAL (NEGATIVE)
[2020-02-18 13:11] VITALS: BP 144/66
== END 2020-02-18 13:34 | disposition home or self-care (01) ==
LOC: D.ER 10:06
PROVIDERS: Family Medicine
DX: R55 Syncope and collapse (principal); L03.311 Cellulitis of abdominal wall; S16.1XXA Strain of muscle, fascia and tendon at neck level, initial encounter; S09.90XA Unspecified injury of head, initial encounter; S39.012A Strain of muscle, fascia and tendon of lower back, initial encounter; F15.90 Other stimulant use, unspecified, uncomplicated; G62.9 Polyneuropathy, unspecified; R51 Headache; W19.XXXA Unspecified fall, initial encounter; Y93.9 Activity, unspecified; Y92.9 Unspecified place or not applicable

== ENCOUNTER 2020-02-19 15:13 | Inpatient (IN) | payer OTHER ==
[~2020-02-19] VITALS: Ht 167.6 cm; Wt 180.8 kg
[~2020-02-19 15:13] MED LIST changes: +LEVAQUIN750 MG PO
--- NOTE | 2020-02-19 16:45 | NUR ---
PT SITTING IN WHEELCHAIR EYES CLOSED AT THIS TIME. RESPIRATIONS ARE EVEN AND UNLABORED. NO DISTRESS NOTED.
--- NOTE | 2020-02-19 17:55 | NUR ---
PT ABLE TO TRANSFER HERSELF TO COMMODE IN RESTROOM INDEPENDENTLY WITHOUT DIFFICULTY.
[2020-02-19 19:30] VITALS: BP 197/84
--- NOTE | 2020-02-19 20:12 | NUR ---
sling applied to R shoulder tolerated well
--- NOTE | 2020-02-19 20:16 | NUR ---
UNABLE TO GET AN IV. MULTIPLE NURSES HAVE TRIED. INFORMED. SURGEON PAGED FOR CENTRAL LINE.
[2020-02-19 20:54] LABS: BASOPHILS 0.1 % (0-2); EOSINOPHILS 0.2 % (0-7); HEMATOCRIT 37.5 % (36.0-48.0); HEMOGLOBIN 12.5 g/dL (12-16); IMMATURE GRANULOCYTES 0.2 % (0-5); LYMPHOCYTES 10.7 % (15-50); MCH 28.2 pg (26.0-34.0); MCHC 33.3 g/dL (31.0-37.0); MCV 84.5 fL (80.0-100.0); MEAN PLATELET VOLUME 9.9 fL (7.4-10.4); MONOCYTES 7.4 % (2-11); NEUTROPHILS 81.4 % (40-80); PLATELET COUNT 132 10x3/uL (130-400); RBC 4.44 10x6/uL (4.00-5.40); RDW 13.2 % (11.5-14.5)
[2020-02-19 21:00] LABS: WBC 9.2 10x3/uL (4.8-10.8)
[2020-02-19 21:05] LABS: CALC OSMOLALITY 270 mosm/kg (275-300); CALCIUM 9.1 mg/dL (8.5-10.1); CARBON DIOXIDE 22.4 mmol/L (21.0-32.0); CHLORIDE - SERUM 104 mmol/L (98-107); CREATININE - SERUM 0.7 mg/dL (0.6-1.3); GLUCOSE 123 mg/dL (74-106); POTASSIUM - SERUM 4.1 mmol/L (3.5-5.1); SODIUM 136 mmol/L (136-145); eGFR NON AFRICAN AMERICAN > 90 mL/min (90-120)
[2020-02-19 21:06] LABS: UREA NITROGEN 7 mg/dL (7-18)
[2020-02-19 21:11] LABS: ALBUMIN 3.6 g/dL (3.4-5.0); ALKALINE PHOSPHATASE 105 U/L (30-120); BILIRUBIN - TOTAL 0.86 mg/dL (0.2-1.3); PROTEIN - SERUM 6.9 g/dL (6.4-8.2)
[2020-02-19 21:13] LABS: ALT (SGPT) 35 U/L (10-68)
--- NOTE | 2020-02-19 21:20 | NUR ---
DR GOODSON PUTTING IN IM AND PO MEDS UNTIL CENTRAL OR OTHER LINE CAN BE PLACED IN AM. PT OK WITH POC.
--- NOTE | 2020-02-19 22:00 | NUR ---
PT WOUND TO L LOWER ABD CLEANED AND REDRESSED AT THIS TIME. TOLERATED WITH SOME DISCOMFORT.
--- NOTE | 2020-02-19 22:15 | NUR ---
PT GIVEN MEDICATION PER. PT TOLERATES WELL. PT HAS NO S/S OF DISTRESS NOTED.
--- NOTE | 2020-02-19 22:30 | NUR ---
PT PLACED ON BEDPAN. PT STATES THAT HER BACK HURTS TO BAD TO AMBULATE AT THIS TIME. PT UNABLE TO URINATE. STATES SHE WILL TRY LATER. DENIES WANTING WATER OR FOOD. PT INFORMED SHE WILL BE NPO AT MIDNIGHT.
[2020-02-19 23:23] LABS: APTT 24.1 SECONDS (22.8-39.4); INR 1.1 (0.85-1.17); PROTIME 14.2 SECONDS (11.6-15.0)
[2020-02-20] VITALS (9 sets, daily range): BP systolic 106–150; BP diastolic 57–100; BMI 56.6
--- NOTE | 2020-02-20 | NUR ---
PURE CHIRAGCK PLACED AT THIS TIME.
--- NOTE | 2020-02-20 02:43 | NUR ---
PT MOVED TO INPATIENT BED FROM [facility] AT THIS TIME USING SLIDE BOARD. PT TOLERATED WITH SOME DISCOMFORT.
[2020-02-20 03:05] LABS: BILIRUBIN NEGATIVE (NEGATIVE); KETONE SMALL mg/dL (NEGATIVE); NITRITE NEGATIVE (NEGATIVE); UROBILINOGEN NORMAL (NORMAL)
--- NOTE | 2020-02-20 03:30 | NUR ---
PT WANTED HER UROLOGIST MD CALLED. UROLOGIST MD JOSIE [phone]
--- NOTE | 2020-02-20 03:34 | NUR ---
DICK PLACED AT THIS TIME. 700 ML LIGHT PARISA URINE.
--- NOTE | 2020-02-20 07:10 | NUR ---
PT REPORT FROM SAMMY AGUAYO
[2020-02-20 11:07] LABS: UDS - AMPHET NEGATIVE QUAL (NEGATIVE); UDS - BARB NEGATIVE QUAL (NEGATIVE); UDS - BENZO NEGATIVE QUAL (NEGATIVE); UDS - COCAINE NEGATIVE QUAL (NEGATIVE); UDS - OPIATE POSITIVE QUAL (NEGATIVE); UDS - PCP NEGATIVE QUAL (NEGATIVE); UDS - THC NEGATIVE QUAL (NEGATIVE)
--- NOTE | 2020-02-20 16:20 | NUR ---
PT IN ROOM ALEEP, SNORING, NO S/SX OF DISTRESS, PT IS NOT WAKING WHEN I CALL HER NAME HAD TO GENTLY SHAKE PT, PT STATES TAMY IS IN PAIN AND NEEDS HER PAIN SHOT. ADVISED PT THAT SHE JUST RECEIVED PAIN MEDCATION 3 HOURS AGO AND IT IS TOO EARLY FOR ME TO ADMINISTER MEDICATIONS. PT HAS NO IV ACCESS, RT ARM IN SLING. PT STATES SHE IS STARVING AND HAS NOT EATEN SINCE THURSDAY. ADVISED PT SHE HAS A REG DIET ORDERED. CONTINUE WITH PLAN OF CARE
--- NOTE | 2020-02-20 16:56 | NUR ---
PT PIPELINER LIGHT AGAIN STATES SHE NEEDS PAIN SHOT, TOLD PT SHE STILL HAD ANOTHER 30MINUTES BEFORE I CAN ADMINISTER, PT STATED SHE DID NOT WANT NORCOS AND THEY DID NOT DO ANYTHING FOR HER AND SHE WAS TOLD SHE CAN HAVE DILAUDID. PT SNORING WHEN I CAME IN EARLIER AND FALLING ASLEEP BETWEEN TALKING TO ME. DECIDED TO GIVE PT PAIN PILL INSTEAD OF PAIN SHOT. CONTINUE WITH PLAN OF CARE
--- NOTE | 2020-02-20 18:37 | NUR ---
PT PULLED UP IN BED SCREAMED OUT IN PAIN, ADMINISTERED PRN PAIN MEDICATION. SHOT TO LEFT ARM CONTINUE WITH PLAN OF CARE
--- NOTE | 2020-02-20 19:20 | NUR ---
BEDSIDE REPORT RECEIVED AND CARE OF PT ASSUMED. PT LYING IN SUPINE POSITION VISITING WITH FAMILY MEMBER. NO IV AT THIS TIME. WILL SLING ON RIGHT ARM. DICK CATHETER DRAINING TO GRAVITY WITH YELLOW URINE IN COLLECTION BAG. WILL MONITOR FOR NEEDS.
--- NOTE | 2020-02-20 20:11 | NUR ---
HS MEDICATIONS GIVEN TO INCLUDE FOLLOWING PRN'S: NORCO 10 PO, VISTARIL, MELATONIN, ZOFRAN, AND PO BENADRYL. WILL CONTINUE TO MONITOR FOR NEEDS.
--- NOTE | 2020-02-20 22:28 | NUR ---
ADMISSION ASSESSMENT COMPLETE.
--- NOTE | 2020-02-20 22:30 | NUR ---
ADMISSION CARE PLAN COMPLETE. SUICIDE SCREEN COMPLETE
--- NOTE | 2020-02-20 22:32 | NUR ---
HOME MED REC REVIEWED AND COMPLETE.
[2020-02-21 04:00] VITALS: BP 112/49
[2020-02-21 05:19] LABS: BASOPHILS 0.3 % (0-2); EOSINOPHILS 4.3 % (0-7); HEMATOCRIT 34.5 % (36.0-48.0); HEMOGLOBIN 10.9 g/dL (12-16); IMMATURE GRANULOCYTES 0.3 % (0-5); LYMPHOCYTES 21.3 % (15-50); MCH 27.7 pg (26.0-34.0); MCHC 31.6 g/dL (31.0-37.0); MEAN PLATELET VOLUME 10.2 fL (7.4-10.4); NEUTROPHILS 61.8 % (40-80); RBC 3.93 10x6/uL (4.00-5.40); RDW 13.6 % (11.5-14.5); WBC 7.5 10x3/uL (4.8-10.8)
[2020-02-21 05:28] LABS: MCV 87.8 fL (80.0-100.0); PLATELET COUNT 166 10x3/uL (130-400)
[2020-02-21 05:56] LABS: ALKALINE PHOSPHATASE 87 U/L (30-120); ALT (SGPT) 37 U/L (10-68); BILIRUBIN - TOTAL 0.59 mg/dL (0.2-1.3); CALCIUM 9.2 mg/dL (8.5-10.1); CARBON DIOXIDE 27.6 mmol/L (21.0-32.0); CHLORIDE - SERUM 105 mmol/L (98-107); CREATININE - SERUM 0.8 mg/dL (0.6-1.3); GLUCOSE 114 mg/dL (74-106); POTASSIUM - SERUM 3.7 mmol/L (3.5-5.1); PROTEIN - SERUM 6.6 g/dL (6.4-8.2); SODIUM 139 mmol/L (136-145); eGFR NON AFRICAN AMERICAN 82 mL/min (90-120)
[2020-02-21 05:58] LABS: CALC OSMOLALITY 279 mosm/kg (275-300); UREA NITROGEN 16 mg/dL (7-18)
--- NOTE | 2020-02-21 07:20 | NUR ---
ALERT AND ORIENTED. LUNGS CLEAR BILATERALLY. HEART SOUNDS S1 AND S2 HEARD IN ALL FREIRE. BOWEL SOUNDS ACTIVE X 4. DENIES NEEDS. BED LOW. CALL BLACK AND PERSONAL ITEMS IN REACH. WILL CONTINUE TO MONITOR.
[2020-02-21 09:13] VITALS: BP 140/74
--- NOTE | 2020-02-21 10:26 | NUR ---
DRSG CHANGED TO LEFT LOWER ABD PER ORDER. ODOR NOTED. REDNESS AROUND SITE.
--- NOTE | 2020-02-21 11:44 | NUR ---
REPOSITIONED IN BED PER REQUEST. DENIES FURTHER NEEDS. WILL CONTINUE TO MONITOR.
--- NOTE | 2020-02-21 12:08 | NUR ---
PATIENT REQUESTING PAIN MEDS INCREASED. CURRENTLY ALTERNATING PO AND IV PRN PAIN MEDICATION Q2HR. WILL TALK TO OIL CHANGER.
[2020-02-21 12:56] VITALS: BP 135/73
[2020-02-21 16:20] VITALS: BMI 56.5
[2020-02-21 17:51] VITALS: BP 147/79
--- NOTE | 2020-02-21 19:23 | NUR ---
C/O PAIN IN BACK AND RT SHOULDER. RT SHOULDER IS IN A SLING, MOVES FINGERS, RADIAL PULSE STRONG. ALERT AND ORIENTED X4. ANXIOUS. ATTN SEEKING. VERBALLY DISRUPTIVE. RESP NONLABORED. O2 @ 3LNC PRN. MEDICATED WITH DILAUDID IM FOR C/O PAIN RATING 10. DICK CATH PATENT AND DRAINING DARK CLOUDY YELLOW URINE. NO IV ACCESS. DRSG NOTED TO LT ABD. BRUISES NOTED TO RUE. BEDRIDDEN. SR ELEVATED X2. CL IN REACH.
[2020-02-21 20:00] VITALS: BP 119/56
--- NOTE | 2020-02-21 20:50 | NUR ---
MEDICATED WITH TYLENOL FOR ELEVATED TEMP. DRSG CHANGE PERFORMED ON LT ABD. WOUND TUNNELS AND MEASURED 3CM DEEP AND 0.5 CM WIDE. SEROSANGUINEOUS DRAINAGE NOTED. WOUND PACKED WITH DAKINS WET IODOFORM GAUZE AND DRY 4X4S PLACED OVER WOUND AND SECURED WITH TAPE. PT JOHN FAIR.
--- NOTE | 2020-02-21 22:52 | NUR ---
RESTING QUIETLY WITH EYES CLOSED. RESP NONLABORED. NO DISTRESS. CL IN REACH.
--- NOTE | 2020-02-21 23:25 | NUR ---
REQUESTING PAIN MED. MEDICATED WITH DILAUDID FOR C/O PAIN RATING 9 IN BACK AND RT SHOULDER. CL IN REACH.
[2020-02-22] VITALS (7 sets, daily range): BP systolic 94–156; BP diastolic 42–86; Ht 167.6 cm; Wt 180.8 kg
--- NOTE | 2020-02-22 00:31 | NUR ---
V/S TAKEN AT THIS TIME. DBP IS 40. SAO2 WAS 69%. PLACED ON O2 @ 3LNC AND CAME UP IMMEDIATELY TO 90'S. PT ASKING WHEN PAIN MED WAS DUE. PT JUST RECEIVED PAIN MED AN HOUR AGO. ATTEMPTED TO EXPLAIN TO PT THAT HER SAO2 IS LOW BECAUSE OF THE PAIN MEDS AND MUSCLE RELAXERS AND ALSO HAS AFFECTED HER B/P. PT ARGUING WITH STAFF. EXPLAINED THAT THIS MERCURY CELL CLEANER WILL NOT GIVE HER PAIN MEDS IF B/P IS LOW. ENCOURAGED DEEP BREATHING. GIVEN AN I.S. AND WATCHED PT USE IT PROPERLY. ENCOURAGED USE OF I.S. 10X PER HOUR WHILE AWAKE. SHE VERABLIZED UNDERSTANDING OF USE. CL IN REACH. NO DISTRESS. PT IS DROWSY BUT ARGUMENTATIVE.
--- NOTE | 2020-02-22 03:09 | NUR ---
PT WANTING PAIN MEDS. B/P 100/45. PT REQUESTS RECHECK. 103/55 ON SECOND TRY. PT ASKING IF NURSE CAN SIT HER UP AND TAKE IT. INFORMED PT THAT STAFF WOULD GIVE HER A NORCO ONLY AT THIS TIME INSTEAD OF DILAUDID DUE TO LOW DBP. SAO2 100% ON O2 @ 3L/NC. DRUG SEEKING BEHAVIOR NOTED. STATES SHE HASNT SLEPT IN 3 HOURS BUT STAFF HAS OBSERVED PT FREQUENTLY SNORING. INFORMED PT THAT DREDGE RUNNER WILL NOT GIVE PAIN MED IF DBP IS LESS THAN 50 DUE TO CONCERN OF B/P DROPPING AND THAT SHE DOES NOT HAVE IV ACCESS AT THIS TIME. SHE VERBALIZED UNDERSTANDING.
--- NOTE | 2020-02-22 05:40 | NUR ---
HAD MENTIONED EARLIER THAT SHE SHOULD TAKE THE NORCO A COUPLE OF TIMES THEN IN 8 HOURS TAKE THE DILAUDID BUT SHE NOW STATES THAT SHE IS HAVING BACK SPASMS AND NEEDS THE DILAUDID. MEDICATED WITH DILAUDID IM AT THIS TIME. DURING ADMINISTRATION PT STATES, "MARY CHANGED MY DRESSING LASTNIGHT AND ITS SUPPOSED TO BE DONE TWICE A DAY." INFORMED PT THAT IT WAS CHANGED LAST NIGHT BY THIS SLURRY TANK TENDER AND SIGNED AND DATED AND THAT SHE WAS DROWSY WHEN IT WAS DONE. PT IS VERY MANIPULATIVE, DRAMATIC AND ATTN SEEKING. PORTRAYS THAT SHE CANT TURN HERSELF OR EVEN REACH OBJECTS THAT ARE IN HER LAP OR BEDSIDE TABLE AND ASKS STAFF TO DO EVERYTHING FOR HER.
[2020-02-22 06:58] LABS: BASOPHILS 0.2 % (0-2); EOSINOPHILS 3.1 % (0-7); HEMATOCRIT 35.4 % (36.0-48.0); HEMOGLOBIN 10.9 g/dL (12-16); IMMATURE GRANULOCYTES 0.6 % (0-5); LYMPHOCYTES 23.7 % (15-50); MCH 27.3 pg (26.0-34.0); MCHC 30.8 g/dL (31.0-37.0); MCV 88.7 fL (80.0-100.0); MEAN PLATELET VOLUME 10.8 fL (7.4-10.4); MONOCYTES 10.8 % (2-11); NEUTROPHILS 61.6 % (40-80); RBC 3.99 10x6/uL (4.00-5.40); RDW 13.6 % (11.5-14.5); WBC 8.4 10x3/uL (4.8-10.8)
[2020-02-22 07:00] LABS: PLATELET COUNT 205 10x3/uL (130-400)
--- NOTE | 2020-02-22 07:15 | NUR ---
RECEIVED BEDSIDE REPORT. PT LAYING IN BED A &O X4. C/O PAIN 03/31, EDUCATED PT ON WHEN PAIN MEDS COULD BE GIVEN, VERBALIZED UNDERSTANDING. PT REFUSES TO WEAR NC 3L, O2 SAT 94%. BS DIMINSHED ALL LOBES. RUE IN SLING, BRUISES. ABD WOUND DRSG C/D/I. BLISTERS ABOVE PUBIC AREA. DICK IN PLACE, PATENT, STATLOCK IN PLACE. BACK BRACE IN PLACE. EDUCATED PT ON CL AND NEEDS. BED LOW, RAILS X2. CL IN REACH. WILL CONTINUE TO MONITOR.
[2020-02-22 07:22] LABS: ALBUMIN 3.1 g/dL (3.4-5.0); ANION GAP 10.9 mmol/L (8-16); BILIRUBIN - TOTAL 0.46 mg/dL (0.2-1.3); CALCIUM 8.9 mg/dL (8.5-10.1); CARBON DIOXIDE 28.1 mmol/L (21.0-32.0); PROTEIN - SERUM 6.8 g/dL (6.4-8.2)
--- NOTE | 2020-02-22 08:30 | NUR ---
PT C/O PAIN 03/31, PROVIDED PAIN MEDS PER ORDER.
--- NOTE | 2020-02-22 08:56 | CN ---
PATIENT NAME:AYAKA HEDRICK MEDICAL RECORD: [id number] : 73 LOCATION:D.MS [id number] ADMIT DATE: 02/19/20 ACCOUNT: [id number] CONSULTING PHYSICIAN: PIETRO EM MD REFERRING PHYSICIAN: MERLY COLE DO DATE OF CONSULTATION: 02/21/2020 IDENTIFYING DATA: The patient is 44 years old and she is admitted to the hospital secondary to a fractured humerus and L1 vertebra from a fall. CHIEF COMPLAINT: None. 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 Apparently, she fell and broke her left humerus and the vertebral body of L1 vertebra. In the Emergency Department, her mother who is deaf apparently told the staff there that she is overtaking or mistaking her home medications and also taking some of the mother's pain medicines. On interview, the patient is very cooperative, polite, interactive, has a euthymic mood and certainly no evidence of disorganized thinking, cognitive impairment or dangerousness to herself or others. She says her mother is deaf and often misunderstood. She also says that she has to give her mother her medications and that she keeps them hidden because the patient has a boyfriend in the house that apparently she does not trust around the medicines. She says that she has on occasion mistaken her Ambien, but in general findings the assertion that she mistakes the medicines mystifying. 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 The patient interestingly knows what this is, seems perplexed and puzzled that she has been thought to have it and denies emphatically symptoms that she does have it. I have done a review of the chart and if there is some documentation where she suspected of causing herself illness, I do not know where that would be or I have just missed it. In cases of true Munchausen's disease, there typically is little that can be done other than in some cases putting the patient in protective custody or under protective observation and referring the patient for long-term outpatient counseling. If there is evidence that she has engaged in this kind of behavior, she is denying it. The daughter does not have any evidence that it is true and there is no documentation in the medical record that I have found. ASSESSMENT: Adjustment disorder with mixed emotional features. PLAN: The patient at this point is not acutely dangerous to herself or others. Please advise if there is information not in the medical record that might be important for me to know to change this evaluation. There may be some very significant questions about prescribing a sedative or hypnotic to someone who is so morbidly obese and almost certainly has obstructive sleep apnea, but that is a different issue than a substance abuse issue or someone deliberately causing illness for whatever reason. I do not see any evidence of dangerousness. If appropriate, she can be referred to outpatient counseling and if appropriate, please provide me with other information that would assist if this assessment is not consistent with information that is known by others. TRANSINT:[id number] Voice Confirmation ID: [id number] DOCUMENT ID: [id number] CONSULT REPORT [id number] AYAKA HEDRICK PETER MD at 0856 CC: [id number] DICTATION DATE: 02/21/20 1502 CHIEF OPHTHALMIC TECHNICIAN: 02/21/20 1529 ADM IN [facility] [address] [place] [address]
--- NOTE | 2020-02-22 11:45 | NUR ---
PT C/O OF NAUSEA AND PAIN, PROVIDED PT WITH WATER AND SALTINES. EDUCATED PT THAT SODA WILL MAKE HER MORE DEHYDRATED AND SHE NEEDS TO DRINK WATER. SHE HAS NOT EATEN FOOD SINCE SONIC YESTERDAY, EDUCATED THAT THE PAIN MEDS ON AN EMPTY STOMACH CAN CAUSE NAUSEA. PT ATE SALTINES AND STARTED DRINKING WATER. WILL CONTINUE TO MONITOR.
--- NOTE | 2020-02-22 12:30 | NUR ---
PT C/O PAIN 03/01, HELD PAIN MEDS AND EDUCATED PT THAT WE ARE GOING TO WAIT TO GIVE MEDS UNTIL WE HAVE OBTAINED VASCULAR ACCESS. WILL CONTINUE TO MONITOR.
--- NOTE | 2020-02-22 13:29 | NUR ---
PT UNABLE TO LAY FLAT FOR MRI. SPOKE WITH DR GARNETT AND HE SAID TO CANCEL MRI.
--- NOTE | 2020-02-22 14:15 | NUR ---
VASCULAR ACCESS ABLE TO INSERT MIDLINE, PT TOLERATED WELL. PROVIDED FLUIDS AND PAIN MEDS PER ORDER. WILL CONTINUE TO MONITOR.
--- NOTE | 2020-02-22 16:00 | NUR ---
ASSISTED PT WITH BED BATH. FULL BED CHANGE. ADJUSTED BACK BRACE BACK INTO PLACE. ADJUSTED SLING BACK INTO PLACE. PT TOLERATED WELL. BED LOW, CL IN REACH.
[2020-02-23] VITALS: BP 134/91
[2020-02-23 04:00] VITALS: BP 128/67
--- NOTE | 2020-02-23 05:28 | NUR ---
I have reviewed this patient and I concur with the Shift Assessment completed by the Licensed Practical Nurse today this shift.
[2020-02-23 05:53] LABS: BASOPHILS 0.1 % (0-2); HEMATOCRIT 33.7 % (36.0-48.0); HEMOGLOBIN 10.7 g/dL (12-16); IMMATURE GRANULOCYTES 0.4 % (0-5); LYMPHOCYTES 28.9 % (15-50); MCH 28.1 pg (26.0-34.0); MCHC 31.8 g/dL (31.0-37.0); MCV 88.5 fL (80.0-100.0); MEAN PLATELET VOLUME 11.4 fL (7.4-10.4); MONOCYTES 8.8 % (2-11); NEUTROPHILS 56.8 % (40-80); RBC 3.81 10x6/uL (4.00-5.40); RDW 13.7 % (11.5-14.5); WBC 6.8 10x3/uL (4.8-10.8)
--- NOTE | 2020-02-23 05:58 | NUR ---
DRESSING LT LOWER ABD CHANGED. TUNNELING NOTED. DRAINAGE LIGHT BROWN FRESH BLOOD PRESENT. NO ODOR. PT PAIN AT A 10. DILAUDID GIVEN IV PER AUG. 4X4 PLACED OVER PACKING. PT TOLERATED WELL. WILL CONTINUE TO CLOSELY MONITOR. CALL LIGHT IN REACH. BED LOWERED AND LOCKED. BED RAILS UPX3.
[2020-02-23 06:08] LABS: PLATELET COUNT 104 10x3/uL (130-400)
[2020-02-23 06:19] LABS: ALBUMIN 2.7 g/dL (3.4-5.0); ALKALINE PHOSPHATASE 79 U/L (30-120); ALT (SGPT) 25 U/L (10-68); CALC OSMOLALITY 285 mosm/kg (275-300); CALCIUM 8.8 mg/dL (8.5-10.1); CARBON DIOXIDE 22.9 mmol/L (21.0-32.0); CHLORIDE - SERUM 106 mmol/L (98-107); CREATININE - SERUM 0.7 mg/dL (0.6-1.3); GLUCOSE 117 mg/dL (74-106); POTASSIUM - SERUM 4.1 mmol/L (3.5-5.1); PROTEIN - SERUM 5.7 g/dL (6.4-8.2); SODIUM 142 mmol/L (136-145); UREA NITROGEN 17 mg/dL (7-18); eGFR NON AFRICAN AMERICAN > 90 mL/min (90-120)
--- NOTE | 2020-02-23 07:45 | NUR ---
PATIENT IN BED. DENIES PAIN OR NEEDS. BED LOW POSITION, CALL LIGHT IN REACH. WILL CONTINUE TO MONITOR.
[2020-02-23 10:22] VITALS: BP 116/80
--- NOTE | 2020-02-23 12:02 | NUR ---
MRI LUMBAR REORDERED BY DR WRIGHT/Tarik LEE. NOTIFIED THEM THAT WE HAD TRIED YESTERDAY AND DUE TO HER BODY HABITUS, SHOULDER INJURY AND MEASUREMENT WE CANNOT DO HER SCAN. WE INFORMED RAMIN OF THIS AND CANCELLED THE EXAM THAT WAS ORDERED TODAY.
[2020-02-23 13:46] VITALS: BP 126/91
--- NOTE | 2020-02-23 16:50 | NUR ---
DRESSING CHANGED. PATIENT TOLLERATED WELL. NO ODOR PRESENT. SEROUS DRAINAGE ON PACKING.
[2020-02-23 18:23] VITALS: BP 115/54
[2020-02-23 20:00] VITALS: BP 100/59
[2020-02-24 04:00] VITALS: BP 136/57
--- NOTE | 2020-02-24 05:37 | NUR ---
I have reviewed this patient and I concur with the Shift Assessment completed by the Licensed Practical Nurse today this shift.
[2020-02-24 07:10] LABS: BASOPHILS 0.2 % (0-2); EOSINOPHILS 4.7 % (0-7); HEMATOCRIT 34.3 % (36.0-48.0); IMMATURE GRANULOCYTES 0.5 % (0-5); LYMPHOCYTES 24.3 % (15-50); MCH 28.1 pg (26.0-34.0); MCHC 32.1 g/dL (31.0-37.0); MCV 87.7 fL (80.0-100.0); MEAN PLATELET VOLUME 10.4 fL (7.4-10.4); NEUTROPHILS 61.3 % (40-80); RBC 3.91 10x6/uL (4.00-5.40); RDW 13.8 % (11.5-14.5); WBC 6.6 10x3/uL (4.8-10.8)
[2020-02-24 07:12] LABS: PLATELET COUNT 184 10x3/uL (130-400)
[2020-02-24 07:13] LABS: ALBUMIN 2.8 g/dL (3.4-5.0); ALKALINE PHOSPHATASE 77 U/L (30-120); ALT (SGPT) 21 U/L (10-68); BILIRUBIN - TOTAL 0.59 mg/dL (0.2-1.3); CALC OSMOLALITY 283 mosm/kg (275-300); CALCIUM 9.1 mg/dL (8.5-10.1); CARBON DIOXIDE 25.6 mmol/L (21.0-32.0); CHLORIDE - SERUM 107 mmol/L (98-107); CREATININE - SERUM 0.7 mg/dL (0.6-1.3); GLUCOSE 108 mg/dL (74-106); POTASSIUM - SERUM 3.8 mmol/L (3.5-5.1); PROTEIN - SERUM 6.2 g/dL (6.4-8.2); SODIUM 141 mmol/L (136-145); UREA NITROGEN 17 mg/dL (7-18); eGFR NON AFRICAN AMERICAN > 90 mL/min (90-120)
--- NOTE | 2020-02-24 07:42 | NUR ---
PATIENT IN BED. REQUESTING TO BE PULLED UP. DENIES ANY FURTHER NEEDS. BED LOW POSITION, CALL LIGHT IN REACH. WILL CONTINUE TO MONITOR.
[2020-02-24 09:52] VITALS: BP 146/62
[2020-02-24 17:49] VITALS: BP 127/57
--- NOTE | 2020-02-24 19:10 | NUR ---
RECEIVED REPORT, ASSUMED CARE, DENIES PAIN, BREATHING EVEN UNLABRORED, CALL LIGHT IN REACH, BED LOWEST POSITION, NO S/S OF DISTRESS NOTED, IV PATENT SL, DICK TO GRAVITY
--- NOTE | 2020-02-24 19:30 | NUR ---
DRESSING TO ABDOMEN CHANGED PER WET TO DRY ORDER. PATIENT TOLLERATED WELL. SEROUS DRAINAGE PRESENT.
[2020-02-25 04:00] VITALS: BP 122/61
--- NOTE | 2020-02-25 04:17 | NUR ---
I have reviewed this patient and I concur with the Shift Assessment completed by the Licensed Practical Nurse today this shift.
[2020-02-25 06:35] LABS: BASOPHILS 0.2 % (0-2); EOSINOPHILS 6.3 % (0-7); HEMATOCRIT 35.2 % (36.0-48.0); HEMOGLOBIN 11.2 g/dL (12-16); IMMATURE GRANULOCYTES 0.6 % (0-5); LYMPHOCYTES 25.1 % (15-50); MCH 27.8 pg (26.0-34.0); MCHC 31.8 g/dL (31.0-37.0); MCV 87.3 fL (80.0-100.0); MEAN PLATELET VOLUME 9.7 fL (7.4-10.4); MONOCYTES 11.3 % (2-11); NEUTROPHILS 56.5 % (40-80); PLATELET COUNT 193 10x3/uL (130-400); RBC 4.03 10x6/uL (4.00-5.40); RDW 13.9 % (11.5-14.5); WBC 6.3 10x3/uL (4.8-10.8)
[2020-02-25 07:22] LABS: ALKALINE PHOSPHATASE 79 U/L (30-120); ALT (SGPT) 22 U/L (10-68); BILIRUBIN - TOTAL 0.66 mg/dL (0.2-1.3); CALC OSMOLALITY 281 mosm/kg (275-300); CALCIUM 9.5 mg/dL (8.5-10.1); CARBON DIOXIDE 25.7 mmol/L (21.0-32.0); CHLORIDE - SERUM 106 mmol/L (98-107); CREATININE - SERUM 0.7 mg/dL (0.6-1.3); GLUCOSE 99 mg/dL (74-106); POTASSIUM - SERUM 3.8 mmol/L (3.5-5.1); PROTEIN - SERUM 6.6 g/dL (6.4-8.2); SODIUM 141 mmol/L (136-145); UREA NITROGEN 16 mg/dL (7-18); eGFR NON AFRICAN AMERICAN > 90 mL/min (90-120)
[2020-02-25 09:49] VITALS: BP 104/46; BP 159/109
--- NOTE | 2020-02-25 10:00 | NUR ---
ASSESSMENT PER FLOW SHEET. PATIENT IS WITHOUT DISTRESS.MEDS ORDERED PER AUG.
[2020-02-25 12:42] VITALS: BP 166/87
--- NOTE | 2020-02-25 15:58 | NUR ---
JASVIR WITH PHYSICAL THERAPY SEEN THE PATIENT THIS AFTERNOON. SHE INSTRUCTED PATIENT TO RAISE HOB WITH [employer]. SHE STATED SHE WOULD BE BACK IN AM TO GET PATIENT UP TO BEDSIDE.
[2020-02-25 17:39] VITALS: BP 134/109
--- NOTE | 2020-02-25 18:39 | NUR ---
REMAINS WITHOUT NEEDS,WITHOUT CHANGE. CONT PLAN OF CARE
--- NOTE | 2020-02-25 19:50 | NUR ---
RECEIVED REPORT, ASSUMED CARE, DENIES PAIN, BREATHING EVEN UNLABRORED, CALL LIGHT IN REACH, BED LOWEST POSITION, NO S/S OF DISTRESS NOTED, IV PATENT, DENIES NEEDS AT THIS TIME, DICK TO GRAVITY, BACK BRACE ON
[2020-02-25 20:00] VITALS: BP 156/88
--- NOTE | 2020-02-25 21:07 | NUR ---
ABDOMINAL WOUND CLEANED AND CHANGED PER ORDER
--- NOTE | 2020-02-25 21:55 | NUR ---
OT NOTE: PT REQUIRED TOTAL A WITH POSITIONING OF SLING. PT STATED SHE HAS PAIN. NURSING IS AWARE. PT REQUIRED TOTAL A WITH POSITIONING TO INCREASE COMFORT AND DECREASE SKIN BREAKDOWN. PT COMPLETED FACE HYGIENE WITH SET UP. [phone] THANK YOU,JULEE SANCHEZ
[2020-02-26] VITALS: BP 138/91
--- NOTE | 2020-02-26 03:11 | NUR ---
I have reviewed this patient and I concur with the Shift Assessment completed by the Licensed Practical Nurse today this shift.
[2020-02-26 04:00] VITALS: BP 135/66
--- NOTE | 2020-02-26 08:45 | NUR ---
ASSESSMENT PER FLOW SHEET. PATIENT IS WITHOUT DISTRESS.MEDS ORDERED PER MAR FOR PAIN.CALL LIGHT IN REACH
[2020-02-26 08:49] LABS: BASOPHILS 0.2 % (0-2); EOSINOPHILS 6.4 % (0-7); HEMATOCRIT 37.4 % (36.0-48.0); HEMOGLOBIN 11.7 g/dL (12-16); IMMATURE GRANULOCYTES 0.7 % (0-5); LYMPHOCYTES 30.5 % (15-50); MCH 27.7 pg (26.0-34.0); MCHC 31.3 g/dL (31.0-37.0); MCV 88.6 fL (80.0-100.0); MEAN PLATELET VOLUME 10.7 fL (7.4-10.4); MONOCYTES 11.8 % (2-11); NEUTROPHILS 50.4 % (40-80); PLATELET COUNT 216 10x3/uL (130-400); RBC 4.22 10x6/uL (4.00-5.40); RDW 13.9 % (11.5-14.5); WBC 5.4 10x3/uL (4.8-10.8)
[2020-02-26 09:16] LABS: ALBUMIN 3.1 g/dL (3.4-5.0); ALKALINE PHOSPHATASE 86 U/L (30-120); ALT (SGPT) 23 U/L (10-68); CALC OSMOLALITY 285 mosm/kg (275-300); CALCIUM 9.5 mg/dL (8.5-10.1); CARBON DIOXIDE 24.5 mmol/L (21.0-32.0); CHLORIDE - SERUM 107 mmol/L (98-107); CREATININE - SERUM 0.6 mg/dL (0.6-1.3); GLUCOSE 102 mg/dL (74-106); POTASSIUM - SERUM 4.2 mmol/L (3.5-5.1); PROTEIN - SERUM 6.3 g/dL (6.4-8.2); SODIUM 142 mmol/L (136-145); UREA NITROGEN 20 mg/dL (7-18); eGFR NON AFRICAN AMERICAN > 90 mL/min (90-120)
[2020-02-26 09:17] VITALS: BP 154/74
[2020-02-26 17:29] VITALS: BP 108/80
--- NOTE | 2020-02-26 19:10 | NUR ---
RECEIVED REPORT, ASSUMED CARE, DENIES PAIN, BREATHING EVEN UNLABRORED, CALL LIGHT IN REACH, BED LOWEST POSITION, NO S/S OF DISTRESS NOTED, DENIES NEEDS IDCK TO GRAVITY
[2020-02-26 20:00] VITALS: BP 137/56
[2020-02-27 04:00] VITALS: BP 159/70
--- NOTE | 2020-02-27 05:00 | NUR ---
BED BATH GIVEN, LINENS CHANGED, DICK CARE, EDUCATED PT ON IMPORTANCE OF AMBULATING, TSLO BRACE READJUSTED
[2020-02-27 08:11] LABS: BASOPHILS 0.4 % (0-2); EOSINOPHILS 4.7 % (0-7); HEMATOCRIT 38.5 % (36.0-48.0); HEMOGLOBIN 12.1 g/dL (12-16); IMMATURE GRANULOCYTES 0.9 % (0-5); LYMPHOCYTES 24.2 % (15-50); MCH 28.2 pg (26.0-34.0); MCHC 31.4 g/dL (31.0-37.0); MCV 89.7 fL (80.0-100.0); MEAN PLATELET VOLUME 10.5 fL (7.4-10.4); MONOCYTES 9.7 % (2-11); NEUTROPHILS 60.1 % (40-80); RBC 4.29 10x6/uL (4.00-5.40); WBC 5.4 10x3/uL (4.8-10.8)
[2020-02-27 08:14] LABS: PLATELET COUNT 170 10x3/uL (130-400)
--- NOTE | 2020-02-27 08:45 | NUR ---
PATIENT IN BED WITH NO COMPLAINTS OR SIGNS OF DISTRESS. IV INTACT. CALL LIGHT WITHIN REACH.
[2020-02-27 09:27] VITALS: BP 187/87
--- NOTE | 2020-02-27 13:00 | NUR ---
OT NOTE: PT PERFORMED BED MOB WITH EXTENSIVE TIME AND NUMEROUS POSITION CHANGING OF BED AND MOD ASSIST. TOLERATED SITTING ON EOB WITHOUT ASSIST. SIT TO STAND WITH MOD ASSIST X 2 WITH ASSIST OF P.T AND ABLE TO TAKE A FEW SIDE STEPS AT EOB. BACK TO BED AND SIT TO SUPINE WITH MOD ASSIST. PT ABLE TO SCOOT UP IN BED WITH ASSIST FOR KEEPING FEET FROM SLIDING. RE ADJUSTED BACK BRACE FOR COMFORT. PT ABLE TO PERFORM UE GROOMING TASKS AND FEEDING WITH SET UP. LAZARA ROSSI, OTR/L [phone]
[2020-02-27 14:52] LABS: ALBUMIN 2.7 g/dL (3.4-5.0); ALKALINE PHOSPHATASE 82 U/L (30-120); ALT (SGPT) 27 U/L (10-68); BILIRUBIN - TOTAL 0.59 mg/dL (0.2-1.3); CALC OSMOLALITY 283 mosm/kg (275-300); CALCIUM 9.2 mg/dL (8.5-10.1); CARBON DIOXIDE 27.7 mmol/L (21.0-32.0); CHLORIDE - SERUM 106 mmol/L (98-107); CREATININE - SERUM 0.7 mg/dL (0.6-1.3); GLUCOSE 123 mg/dL (74-106); PROTEIN - SERUM 6.3 g/dL (6.4-8.2); SODIUM 141 mmol/L (136-145); UREA NITROGEN 18 mg/dL (7-18); eGFR NON AFRICAN AMERICAN > 90 mL/min (90-120)
[2020-02-27 17:48] VITALS: BP 170/100
--- NOTE | 2020-02-27 18:40 | NUR ---
PATIENT IN BED WITH IV INTACT. NO COMPLAINTS OR SIGNS OF DISTRESS. DRESSING CHANGED WITH DAKINS ORDERED. TOLERATED WITH SMALL AMOUNT OF PAIN. CALL LIGHT WITHIN REACH.
--- NOTE | 2020-02-27 20:00 | NUR ---
PT SITTING UP IN BED WITHOUT DISTRESS, AOX4. BACK BRACE IN PLACE, RIGHT ARM IN SLING. LLQ ABDOMEN WOUND JUST CHANGED AND PACKED WITH WET TO DRY DAKINS. DENIES NEEDS AT THIS TIME. CL IN REACH, WILL CTM
[2020-02-27 20:28] VITALS: BP 143/69
--- NOTE | 2020-02-27 21:00 | NUR ---
PT STATES PAIN 03/01, GAVE DILAUDID ORDERED. GAVE HS MEDS. DENIES OTHER NEEDS, WILL CTM
--- NOTE | 2020-02-27 23:45 | NUR ---
PT STATES PAIN 12/29, GAVE NORCO ORDERED. WILL CTM
[2020-02-28 00:24] VITALS: BP 101/60
[2020-02-28 04:51] VITALS: BP 110/54
--- NOTE | 2020-02-28 05:45 | NUR ---
CHANGED LLQ ABD WOUND WITH DAKINS WET TO DRY, 4X4S PLACED ON TOP AND TAPED WITH MEDIPORE
[2020-02-28 07:20] LABS: BASOPHILS 0.1 % (0-2); EOSINOPHILS 4.8 % (0-7); HEMATOCRIT 37.8 % (36.0-48.0); HEMOGLOBIN 11.9 g/dL (12-16); IMMATURE GRANULOCYTES 0.7 % (0-5); LYMPHOCYTES 27.5 % (15-50); MCH 27.6 pg (26.0-34.0); MCHC 31.5 g/dL (31.0-37.0); MEAN PLATELET VOLUME 10.2 fL (7.4-10.4); MONOCYTES 8.7 % (2-11); NEUTROPHILS 58.2 % (40-80); RBC 4.31 10x6/uL (4.00-5.40); RDW 13.8 % (11.5-14.5)
[2020-02-28 07:26] LABS: MCV 87.7 fL (80.0-100.0); PLATELET COUNT 222 10x3/uL (130-400); WBC 6.9 10x3/uL (4.8-10.8)
--- NOTE | 2020-02-28 07:34 | NUR ---
ALERT AND ORIENTED. LUNGS CLEAR BILATERALLY. HEART SOUNDS S1 AND S2 HEARD IN ALL FREIRE. BOWEL SOUNDS ACTIVE X 4. PABLO MIDLINE PATENT WITHOUT REDNESS. DENIES NEEDS. BED LOW. CALL BLACK AND PERSONAL ITEMS IN REACH. WILL CONTINUE TO MONITOR.
[2020-02-28 07:48] LABS: ALBUMIN 3.4 g/dL (3.4-5.0); ALKALINE PHOSPHATASE 99 U/L (30-120); ALT (SGPT) 29 U/L (10-68); BILIRUBIN - TOTAL 0.53 mg/dL (0.2-1.3); CALC OSMOLALITY 286 mosm/kg (275-300); CALCIUM 9.8 mg/dL (8.5-10.1); CARBON DIOXIDE 26.5 mmol/L (21.0-32.0); CHLORIDE - SERUM 106 mmol/L (98-107); CREATININE - SERUM 0.8 mg/dL (0.6-1.3); GLUCOSE 114 mg/dL (74-106); POTASSIUM - SERUM 4.2 mmol/L (3.5-5.1); PROTEIN - SERUM 6.6 g/dL (6.4-8.2); SODIUM 142 mmol/L (136-145); UREA NITROGEN 20 mg/dL (7-18); eGFR NON AFRICAN AMERICAN 82 mL/min (90-120)
[2020-02-28 08:41] VITALS: BP 184/50
--- NOTE | 2020-02-28 11:52 | NUR ---
RESTING IN BED. DENIES NEEDS. WILL CONTINUE TO MONITOR.
--- NOTE | 2020-02-28 12:24 | NUR ---
OT NOTE: UPON ENTERING ROOM WITH P.T., PT REPORTED THAT SHE DID NOT THINK SHE COULD DO MUCH TODAY BECAUSE OF THE PAIN IN HER SHOULDER. SHE REPORTED THAT SHE WAS ROLLING TOWARDS THE R SIDE THIS AM, SHE HEARD A "POP" IN HER SHOULDER. SHE STATES THAT SINCE THEN THE PAIN HAS BEEN MUCH WORSE. REQUESTED HIGHER DOSE OF PAIN MED FOR TODAY ONLY. EXPLAINED TO HER THAT I WOULD INFORM HER NURSE. PRACTICED BED MOB WITH MAX ASSIST X 2 WHILE ALSO ATTEMPTING TO READJUST BACK BRACE THAT WAS UP ABOVE HER HEAD. AFTER NUMEROUS ATTEMPTS, WE WERE ABLE TO GET BRACE PULLED DOWN IN BACK AND CENTERED IN CORRECT POSITION. PT REFUSED TO ATTEMPT TO SIT UP ON EOB DUE TO INCREASED PAIN IN SHOULDER. EDUCATED PT ON EXS THAT SHE NEEDS TO DO THROUGHOUT THE DAY WHILE IN THE BED. LAZARA GRANT, OTR/L [phone]
[2020-02-28] MEDS ORDERED: LEVAQUIN750 MG PO (12:27)
[2020-02-28 13:12] VITALS: BP 143/117
--- NOTE | 2020-02-28 16:14 | NUR ---
PATIENT EXTREMELY ANXIOUS AND TEARFUL ABOUT DC HOME. STATES NEEDS WHEELCHAIR, BEDSIDE COMMODE, AND OTHER THINGS TO BE ABLE TO GO HOME AND BE FUNCTIONAL. [facility] USES [facility] FOR WOUND CARE AT THIS TIME AND WANTS TO CONTINUE USING [facility]. [facility] DOES NOT FEEL COMFORTABLE DISCHARGING. CASE MANAGEMENT AND RENE DEAL MADE AWARE. CASE MANAGEMENT [facility] WILL GO TALK TO PATIENT. POSSIBLE DC TOMORROW AM INSTEAD OF TODAY.
[2020-02-28] MEDS ORDERED: HYDROCODON-ACE1 EA10 PO (16:38)
--- NOTE | 2020-02-28 17:03 | MORECARE ---
CASE MANAGEMENT DISCHARGE SUMMARY PATIENT: AYAKA HEDRICK UNIT: [id number] ADM DATE: 02/19/20 AGE: 44 : [birth year] SEX: F ROOM/BED: D.2224 AUTHOR: BONI GAUTHIER PHYSICIAN: REFERRING PHYSICIAN: MERLY COLE DO DATE OF SERVICE: 02/28/20 Discharge Plan Patient Name: AYAKA HEDRICK Facility: [facility]:[place] : 1975 Planned Disposition: Anticipated Discharge Date: Discharge Date: Expected LOS: Initial Reviewer: [email or web address] Initial Review Date: 02/28/2020 Generated: 02/28/20 6:03 pm Comments DCP- Discharge Planning Updated by [id number]: Hortensia Kmuar on 02/28/20 3:[address] Patient Name: AYAKA HEDRICK Admission Status: ER Accout number: [id number] Admission Date: 02-19-2020 : 1975 Admission Diagnosis:UNSP FRACTURE OF SHAFT OF HUMERUS, RIGHT ARM, INIT Attending: MERLY COLE Current LOS: 9 Anticipated DC Date: Planned Disposition: Primary Insurance: [employer] Discharge Planning Comments: CM met with patient at bedside after explaining CM role and obtaining verbal consent. CM discussed availability / needs of home health, REHAB and medical equipment. PATIENT STATES NEEDS LARGE BEDSIDE COMODE, LARGE WHEEL CHAIR, HOSPITAL BED WITH TRAPEZE. MARGOT SIGNED FOR CECE ZULETA. MARGOT SIGNED TO [facility] . I WILL FAX [facility] DC SUM. CM WILL CONTACT [employer] FIRST THING IN MORNING TO SET UP EQUIPMENT. IMM SIGNED. Business Division Chair: Hortensia Kumar External Providers External Provider: [facility] Next Contact Date: Service Request Date: Service Type: Resolution: Reviewer: Comments: External Provider: [facility] Next Contact Date: Service Request Date: Service Type: Resolution: Reviewer: Comments: Coverage Notice Reviewer: [email or web address] Abida Kumar Notice Issued Date-Time: 02/28/2020 16:55 Notice Type: IM Discharge Notice Notice Delivered To: Patient Relationship to Patient: Hot Press Operator Name: Delivery Method: - Gillian Days: Prior Verbal Notification: Recipient Understood Notice: Recipient Signature: Med Rec Note Co-signed by Attending: Coverage Notice Comment: Reviewer: [id number] Abida Kumar Notice Issued Date-Time: 02/28/2020 16:55 Notice Type: Patient Choice Letter Notice Delivered To: Relationship to Patient: Hot Press Operator Name: Delivery Method: - Gillian Days: Prior Verbal Notification: Recipient Understood Notice: Recipient Signature: Med Rec Note Co-signed by Attending: Coverage Notice Comment: GENE DOSS Patient Name: AYAKA HEDRICK Page [phone] at 1703 All edits/amendments must be made on the electronic document DICTATION DATE: 02/28/20 170 COMPOUNDER FLAVORINGS: SIL 02/28/20 170 RPT#: [id number] DC DATE: STATUS: ADM IN [facility] [address] [place] [address] END OF REPORT
--- NOTE | 2020-02-28 17:52 | NUR ---
DRSG CHANGED PER ORDER.
[2020-02-28 20:00] VITALS: BP 157/87
--- NOTE | 2020-02-28 20:00 | NUR ---
PT SITTING UP IN BED WITHOUT DISTRESS, AOX4. STATES PAIN 01/29. LLQ ABD DRESSING CDI. LEFT UPPER ARM ML SL. DICK IN PLACE. RIGHT ARM IN SLING, PROPPED ON PILLOW AND BACK BRACE ON. NORCO NOT DUE UNTIL 2199. PT STATES SHE WANTS ALL HER HS MEDS AT THAT TIME. DENIES OTHER NEEDS. CL IN REACH, WILL CTM
--- NOTE | 2020-02-28 21:00 | NUR ---
PT ASSISTED ONTO BEDPAN, HAD SMALL BM. [facility] PROVIDED. DENIES OTHER NEEDS, WILL CTM
--- NOTE | 2020-02-28 22:00 | NUR ---
PT GIVEN NORCO FOR 10/10 PAIN IN BACK AND SHOULDER. DENIES OTHER NEEDS. WILL CTM
[2020-02-29 04:00] VITALS: BP 112/44
--- NOTE | 2020-02-29 04:16 | NUR ---
GAVE NORCO AND VISTARIL FOR PAIN 7/10 IN RIGHT ARM. DENIES OTHER NEEDS, WILL CTM
--- NOTE | 2020-02-29 05:45 | NUR ---
LEFT LOWER ABD DRESSING CHANGED AT THIS TIME WITH DAKINS WET TO DRY ORDERED
[2020-02-29 06:43] LABS: BASOPHILS 0.2 % (0-2); EOSINOPHILS 3.9 % (0-7); HEMATOCRIT 39.6 % (36.0-48.0); HEMOGLOBIN 12.6 g/dL (12-16); IMMATURE GRANULOCYTES 0.5 % (0-5); LYMPHOCYTES 33.8 % (15-50); MCH 28.1 pg (26.0-34.0); MCHC 31.8 g/dL (31.0-37.0); MCV 88.4 fL (80.0-100.0); MEAN PLATELET VOLUME 10.6 fL (7.4-10.4); MONOCYTES 9.2 % (2-11); NEUTROPHILS 52.4 % (40-80); PLATELET COUNT 201 10x3/uL (130-400); RBC 4.48 10x6/uL (4.00-5.40); RDW 13.7 % (11.5-14.5); WBC 5.9 10x3/uL (4.8-10.8)
[2020-02-29 07:01] LABS: ALKALINE PHOSPHATASE 97 U/L (30-120); ALT (SGPT) 29 U/L (10-68); BILIRUBIN - TOTAL 0.52 mg/dL (0.2-1.3); CALC OSMOLALITY 279 mosm/kg (275-300); CALCIUM 9.7 mg/dL (8.5-10.1); CHLORIDE - SERUM 104 mmol/L (98-107); CREATININE - SERUM 0.8 mg/dL (0.6-1.3); GLUCOSE 98 mg/dL (74-106); PROTEIN - SERUM 6.8 g/dL (6.4-8.2); SODIUM 138 mmol/L (136-145); UREA NITROGEN 23 mg/dL (7-18); eGFR NON AFRICAN AMERICAN 82 mL/min (90-120)
--- NOTE | 2020-02-29 08:45 | NUR ---
PT RESTING IN BED ON TABLET. RESP EVEN AND UNLABORED. PT REQUEST PAIN MEDICATION, VOICING PAIN 10/10 AT THIS TIME. PRESCRIBED PAIN MEDICATION ADMINISTERED AT THIS TIME. MIDLINE IV TO LEFT UPPER ARM, SALINE LOC, SITE WITHOUT REDNESS OR EDEMA. DRESSING TO LEFT LOWER QUADRANT INTACT. F/C PATENT TO GRAVITY, DRAINING YELLOW URINE. DENIES FURTHER NEEDS AT THIS TIME. CL WITHIN REACH. ENCOURAGED TO CALL WITH NEEDS. CONTINUE POC
[2020-02-29 09:18] VITALS: BP 133/55
[2020-02-29 12:39] VITALS: BP 124/68
--- NOTE | 2020-02-29 13:39 | MORECARE ---
CASE MANAGEMENT DISCHARGE SUMMARY PATIENT: AYAKA HEDRICK UNIT: [id number] ADM DATE: 02/19/20 AGE: 44 : [birth year] SEX: F ROOM/BED: D.2224 AUTHOR: DISHADOC PHYSICIAN: REFERRING PHYSICIAN: MERLY COLE DO DATE OF SERVICE: 02/29/20 Discharge Plan Patient Name: AYAKA HEDRICK Facility: [facility]:[place] : 1975 Planned Disposition: Anticipated Discharge Date: Discharge Date: Expected LOS: Initial Reviewer: [email or web address] Initial Review Date: 02/28/2020 Generated: 02/29/20 2:39 pm Comments DCP- Discharge Planning Updated by [email or web address]: Hortensia Kumar on 02/29/20 12:[address] Patient Name: AYAKA HEDRICK Admission Status: ER Accout number: [id number] Admission Date: 02-19-2020 : 1975 Admission Diagnosis:UNSP FRACTURE OF SHAFT OF HUMERUS, RIGHT ARM, INIT Attending: MERLY COLE Current LOS: 10 Anticipated DC Date: Planned Disposition: Primary Insurance: [employer] Discharge Planning Comments: SPOKE WITH SHARA AT [facility] AND THEY WILL DELIVER THE WHEELCHAIR HERE AND WILL GET WITH PATIENT TO DELIVER REST EQUIPMENT AT HER HOME. PATIENT CAN DC TO HOME SOON WHEEL CHAIR IS HERE. Kier Drier: Hortensia Kumar DCP- Discharge Planning Updated by [id number]: Hortensia Kumar on 02/28/20 3:[address] Patient Name: AYAKA HEDRICK Admission Status: ER Accout number: [id number] Admission Date: 02-19-2020 : 1975 Admission Diagnosis:UNSP FRACTURE OF SHAFT OF HUMERUS, RIGHT ARM, INIT Attending: MERLY COLE Current LOS: 9 Anticipated DC Date: Planned Disposition: Primary Insurance: [employer] Discharge Planning Comments: CM met with patient at bedside after explaining CM role and obtaining verbal consent. CM discussed availability / needs of home health, REHAB and medical equipment. PATIENT STATES NEEDS LARGE BEDSIDE COMODE, LARGE WHEEL CHAIR, HOSPITAL BED WITH TRAPEZE. MARGOT SIGNED FOR [facility] ZULETA. MARGOT SIGNED TO [facility]. I WILL FAX [facility] DC SUM. CM WILL CONTACT [employer] FIRST THING IN MORNING TO SET UP EQUIPMENT. IMM SIGNED. Kier Drier: Hortensia Kumar Coverage Notice Reviewer: [email or web address] Abida Kumar Notice Issued Date-Time: 02/28/2020 16:55 Notice Type: IM Discharge Notice Notice Delivered To: Patient Relationship to Patient: Cargo Operations Agent Name: Delivery Method: - Gillian Days: Prior Verbal Notification: Recipient Understood Notice: Recipient Signature: Med Rec Note Co-signed by Attending: Coverage Notice Comment: Reviewer: [email or web address] Abida Kumar Notice Issued Date-Time: 02/28/2020 16:55 Notice Type: Patient Choice Letter Notice Delivered To: Relationship to Patient: Cargo Operations Agent Name: Delivery Method: - Gillian Days: Prior Verbal Notification: Recipient Understood Notice: Recipient Signature: Med Rec Note Co-signed by Attending: Coverage Notice Comment: GENE DOSS Last DP export: 02/28/20 4:03 pm Patient Name: AYAKA HEDRICK Page [phone] at 1339 All edits/amendments must be made on the electronic document DICTATION DATE: 02/29/20 1339 MACHINE STONECUTTER: SIL 02/29/20 1339 RPT#: [id number] DC DATE: STATUS: ADM IN [facility] [address] [place] [address] END OF REPORT
--- NOTE | 2020-02-29 14:09 | NUR ---
PT F/C D/C'D PER ORDER OF TOYIN LÓPEZ. INSTRUCTED PT OF NEED TO VOICED POST CATHETERIZATION. PT VOICES UNDERSTANDING.
--- NOTE | 2020-02-29 15:58 | NUR ---
OT NOTE: PT REQUIRED MAX A X2 FOR UB DRESSING. PT REQUIRED MAX A X2 FOR SIDE ROLLING. PT COMPLETED SUPINE TO SIT WITH MAX A USING TRAP BAR WITH LUE. PT COMPLETED EOB SITTING WITH SPV. PT COMPLETED SLING AND BACKBRACE MANAGEMENT WITH TOTAL A. PT REQUIRED MAX A WITH UB BATHING. PT REQUIRED TOTAL A FOR LB BATHING. PT COMPLETED LUE AROM WITH FUNCTIONAL TASKS. PT COMPLETED PULL/GRASP WITH LUE FOR BED MOB. PT REQUIRED EXTENSIVE ASSIST AND TIME WITH ADLS, BED MOB, AND SLING/BRACE MANAGEMENT. 10-11 THANK YOU,JULEE SANCHEZ
--- NOTE | 2020-02-29 16:56 | NUR ---
OT NOTE: EXTENDED TIME AND EXTENSIVE ASSIST REQUIRED WITH PT TODAY. PT REQUESTING A BATH, HOWEVER, REQUIRED MAX ASSIST DUE TO NUMEROUS ATTEMPTS TO GET BACK BRACE AND SHOULDER SLING IN PLACE PRIOR TO MOVING.. ALSO EXTENSIVE ASSIST WITH ALL BATHING, EXCLUDING WASHING HER FACE, DUE TO DIFFICULTY WITH MOVING IN BED AND AMOUNT OF ASSIST REQUIRED WITH ALL ADLS. AFTER COMPLETION OF BATH, PT WAS ABLE TO PERFORM SUPINE TO SIT WITH MOD ASSIST. STATIC SITTING ON EOB WITH FAIR+ SITTING BALANCE. SIT TO STAND WITH MIN ASSIST X 2..PT REMAINS VERY FEARFUL, HOWEVER, SHE IS ABLE TO DO LARGE PORTION ON HER OWN WITH VERBAL ENCOURAGEMENT. PT WITH NO C/O BACK PAIN , HOWEVER, CONTINUOUS C/O OF SHOULDER PAIN WITH FREQ REST BREAKS REQUIRED. PT ABLE TO STAND WITH MIN ASSSIST X 2; ABLE TO TAKE SEVERAL SIDE STEPS WITH MIN ASSIST X 2.. PT REPORTS THAT SHE WILL BE GOING HOME TODAY WITH ALL EQUIP THAT SHE NEEDS. STATES THAT SHE HAS DTR AND FRIEND WHO CAN ASSIST HER. LAZARA GRANT, OTR/L [phone]
--- NOTE | 2020-03-01 09:27 | MORECARE ---
CASE MANAGEMENT DISCHARGE SUMMARY PATIENT: AYAKA HEDRICK UNIT: [id number] ADM DATE: 02/19/20 AGE: 44 : 73 SEX: F ROOM/BED: D.2224 AUTHOR: DISHA,DOC PHYSICIAN: REFERRING PHYSICIAN: MERLY COLE DO DATE OF SERVICE: 03/01/20 Discharge Plan Patient Name: AYAKA HEDRICK Facility: [facility]:[place] : 1975 Planned Disposition: Anticipated Discharge Date: Discharge Date: 02/29/2020 Expected LOS: Initial Reviewer: [email or web address] Initial Review Date: 02/28/2020 Generated: 03/01/20 10:26 am Comments DCP- Discharge Planning Updated by [email or web address]: Hortensia Kumar on 02/29/20 12:[address] Patient Name: AYAKA HEDRICK Admission Status: ER Accout number: [id number] Admission Date: 02-19-2020 : 1975 Admission Diagnosis:UNSP FRACTURE OF SHAFT OF HUMERUS, RIGHT ARM, INIT Attending: MERLY COLE Current LOS: 10 Anticipated DC Date: Planned Disposition: Primary Insurance: NOVASYSMCR Discharge Planning Comments: SPOKE WITH SHARA AT [facility] AND THEY WILL DELIVER THE WHEELCHAIR HERE AND WILL GET WITH PATIENT TO DELIVER REST EQUIPMENT AT HER HOME. PATIENT CAN DC TO HOME SOON WHEEL CHAIR IS HERE. Research Program Manager: Hortensia Kumar DCP- Discharge Planning Updated by [id number]: Hortensia Kumar on 02/28/20 3:[address] Patient Name: AYAKA HEDRICK Admission Status: ER Accout number: [id number] Admission Date: 02-19-2020 : 1975 Admission Diagnosis:UNSP FRACTURE OF SHAFT OF HUMERUS, RIGHT ARM, INIT Attending: MERLY COLE Current LOS: 9 Anticipated DC Date: Planned Disposition: Primary Insurance: NOVASYSMCR Discharge Planning Comments: CM met with patient at bedside after explaining CM role and obtaining verbal consent. CM discussed availability / needs of home health, REHAB and medical equipment. PATIENT STATES NEEDS LARGE BEDSIDE COMODE, LARGE WHEEL CHAIR, HOSPITAL BED WITH TRAPEZE. MARGOT SIGNED FOR [facility] [facility]U[employer]. MARGOT SIGNED TO [employer] . I WILL FAX [employer] [place] SUM. CM WILL CONTACT [employer] IN MORNING TO SET UP EQUIPMENT. IMM SIGNED. Research Program Manager: Hortensia Kumar Coverage Notice Reviewer: [email or web address] Abida Kumar Notice Issued Date-Time: 02/28/2020 16:55 Notice Type: IM Discharge Notice Notice Delivered To: Patient Relationship to Patient: Psychic Reader Name: Delivery Method: - Gillian Days: Prior Verbal Notification: Recipient Understood Notice: Recipient Signature: Med Rec Note Co-signed by Attending: Coverage Notice Comment: Reviewer: [email or web address] Abida Kumar Notice Issued Date-Time: 02/28/2020 16:55 Notice Type: Patient Choice Letter Notice Delivered To: Relationship to Patient: Psychic Reader Name: Delivery Method: - Gillian Days: Prior Verbal Notification: Recipient Understood Notice: Recipient Signature: Med Rec Note Co-signed by Attending: Coverage Notice Comment: GENE DOSS Last DP export: 02/29/20 12:39 pm Patient Name: AYAKA HEDRICK Page [id number] at 0927 All edits/amendments must be made on the electronic document DICTATION DATE: 03/01/20925 RESTAURANT SHIFT SUPERVISOR: SIL 03/01/20925 RPT#: [id number] DC DATE:02/29/20 STATUS: DIS IN [facility] [address] [place] [address] END OF REPORT
== END 2020-02-29 17:56 | disposition home health service (06) | DRG 563 ==
LOC: D.ER 15:13 → D.MS 22:34 → D.EDHOLD 22:34 → D.MS 02-20 14:19
PROVIDERS: Family Medicine; ADMIT Family Medicine; ATTEND Family Medicine
PROC: 05HY33Z Insertion of Infusion Device into Upper Vein, Percutaneous Approach (ICD-10-PCS; principal; 2020-02-20)
PROC: 05HY33Z Insertion of Infusion Device into Upper Vein, Percutaneous Approach (ICD-10-PCS; 2020-02-22)
DX: S42.301A Unspecified fracture of shaft of humerus, right arm, initial encounter for closed fracture (principal); S32.019A Unspecified fracture of first lumbar vertebra, initial encounter for closed fracture; R78.81 Bacteremia; N39.0 Urinary tract infection, site not specified; W19.XXXA Unspecified fall, initial encounter; E66.9 Obesity, unspecified; F43.29 Adjustment disorder with other symptoms; B99.8 Other infectious disease; B95.8 Unspecified staphylococcus as the cause of diseases classified elsewhere; Z85.89 Personal history of malignant neoplasm of other organs and systems; J45.909 Unspecified asthma, uncomplicated; G62.9 Polyneuropathy, unspecified; G47.33 Obstructive sleep apnea (adult) (pediatric)

== ENCOUNTER → 2020-08-31 12:30 | Outpatient (CLI) | payer OTHER ==
[2020-07-07 12:23] VITALS: BMI 56.5
[~2020-08-31 12:30] MED LIST changes: +CYCLOBENZAPRINE5 MG PO; +DULERA 100 MCG8.8 GM INH; +Levaquin PO; +Xarelto PO
== END | disposition home or self-care (01) ==
LOC: D.MRI 08-24 14:30
PROVIDERS: ATTEND Clinical Nurse Specialist Family Health
DX: M25.511 Pain in right shoulder (principal)

== ENCOUNTER → 2020-09-06 14:22 | Outpatient (CLI) | payer OTHER ==
[2020-07-07 12:23] VITALS: BMI 56.5
== END | disposition home or self-care (01) ==
LOC: D.CT 14:22
PROVIDERS: ATTEND Clinical Nurse Specialist Family Health
DX: M25.511 Pain in right shoulder (principal)

== ENCOUNTER → 2020-09-10 16:20 | Outpatient (CLI) | payer OTHER ==
[2020-07-07 12:23] VITALS: BMI 56.5
== END | disposition home or self-care (01) ==
LOC: D.CT 08:00
PROVIDERS: ATTEND Clinical Nurse Specialist Family Health
DX: R91.1 Solitary pulmonary nodule (principal)

== ENCOUNTER 2020-12-06 10:07 | Emergency (ER) | payer OTHER ==
[~2020-12-06] VITALS: Ht 165.1 cm; Wt 172.7 kg
[2020-12-06 10:14] VITALS: Ht 165.1 cm; Wt 172.7 kg
[2020-12-06] MEDS ORDERED: GABAPENTIN300 MG PO (10:17)
[2020-12-06] MEDS ORDERED: AMBIEN10 MG PO (10:17)
[2020-12-06 11:45] LABS: BACTERIA FEW HPF (<MOD); BILIRUBIN NEGATIVE (NEGATIVE); KETONE NEGATIVE mg/dL (< 1+); NITRITE NEGATIVE (NEGATIVE); SQUAMOUS EPITHELIAL 2 HPF (0-4); UROBILINOGEN NORMAL mg/dL (< 2); WHITE CELLS - URINE 2 HPF (0-4)
[2020-12-06] MEDS ORDERED: HYDROCODON-ACE1 EAC7 PO (13:09)
[2020-12-06 13:21] VITALS: BP 136/88
== END 2020-12-06 13:22 | disposition home or self-care (01) ==
LOC: D.ER 10:07
PROVIDERS: Family Medicine
DX: M54.9 Dorsalgia, unspecified (principal); E66.01 Morbid (severe) obesity due to excess calories; J45.909 Unspecified asthma, uncomplicated